=== PATIENT | female | born 1940 | race Caucasian/White ===

== ENCOUNTER 2022-10-18 15:55 | Emergency (ER) | payer MEDICARE, MEDICAID, SELFPAY ==
[2022-10-18] VITALS (9 sets, daily range): BP systolic 150–213; BP diastolic 73–82; PULSE 67–100; RESP 16–29; TEMP 36.1; O2SAT 97–100
--- NOTE | ~2022-10-18 | CT_ITS ---
EXAMINATION: CT abdomen pelvis w con DATE: 10/18/2022 17:53 INDICATION: Abdominal pain TECHNIQUE: Computed tomography (CT) of the abdomen and pelvis was performed with 100 mL Omnipaque-350 intravenous contrast. Automated exposure control and iterative reconstruction technique were employe d. The dose-length product was 743.36 mGy-cm. COMPARISON: 09/23/2018. FINDINGS: Lower thorax: Bibasilar scar/atelectasis. Calcified right lower lobe granuloma. Mild coronary artery calcification. Liver: Granulomatous calcifications. Biliary/Gallbladder: Gallbladder is normal. No bile duct dilation. Pancreas: Mild fatty infiltration. Spleen: Granulomatous calcifications. Adrenals:No mass. Kidneys: Subcentimeter right renal hypodensities, too small to characterize but most likely represent cysts. No suspicious mass or hydronephrosis. Mild bilateral cortical thinning and scarring. GI tract: Small hiatal hernia. Mild distal esophageal wall edema. No small or large bowel dilation. N ormal appendix. Diverticulosis without diverticulitis. Uniform bowel wall enhancement. Colonic submuc osal fat as can be seen with chronic IBD, obesity, chemotherapy treatment, and celiac disease. Hyperm obile cecum. Mesentery/Peritoneum: No ascites, mass, or free air. Retroperitoneum: No mass. Atherosclerotic abdominal aortic and/or arterial calcifications. Pelvis: Pelvic organs are within normal limits. Soft Tissues: Soft tissues and body wall unremarkable. Bones: No acute osseous finding. IMPRESSION: Mild esophagitis. Otherwise, no acute abdominopelvic process detected. Chronic and incidental finding s detailed above. Reviewed, dictated and finalized at location [facility]. [facility] [employer]PER[employer] [facility] IMPRESSION: Mild esophagitis. Otherwise, no acute abdominopelvic process detected. Chronic and incidental findings detailed above.
[2022-10-18] MEDS: SODIUM CHLORIDE 0.9% IV 1,000 ML 999 ML IV CONT (16:05)
--- NOTE | 2022-10-18 16:20 | ED.NAVMDI ---
HPI - Nausea/Vomiting/Diarrhea General Chief complaint: Nausea/Vomiting/Diarrhea Stated complaint: N/V History of Present Illness HPI Narrative: This is an 82-year-old female with past medical history of anxiety, presenting to the emergency department complaining of nausea vomiting and diffuse abdominal pain for the past 2 days. She states approximately 1 week ago she stopped taking her Xanax and reduced her Cymbalta dose to 30 mg. She states yesterday she had 1 episode of nonbloody vomiting and is felt nauseous today. She complains of multiple episodes of loose stools without blood. She also complains of some nasal congestion. Related Data Allergies Allergy/AdvReac Type Severity Reaction Status Date / Time codeine Allergy Mild codeine Verified 09/26/18 09:32 ([id number]) lactase Allergy Unknown Very sick Verified 10/04/18 13:45 Review of Systems Review of Systems: CONSTITUTIONAL: Denies fever, chills, or sweats. EYES: Denies visual changes, redness, or discharge. ENT: Congestion denies rhinorrhea, sore throat, or otalgia. CARDIOVASCULAR: Denies chest pain, palpitations, or edema. RESPIRATORY: Denies cough or dyspnea. GASTROINTESTINAL: Epigastric abdominal pain, nausea, vomiting, and diarrhea. GENITOURINARY: Denies dysuria or hematuria. SKIN: Denies rash or itching. MUSCULOSKELETAL: Denies back pain, joint pain, or myalgia. NEUROLOGIC: Denies headache, numbness, dizziness, or weakness. PSYCHIATRIC: Denies anxiety or depression. [facility] Past Medical History Medical History (Updated 10/18/22 @ 18:51 by Ton Garcia MD) Incisional hernia, without obstruction or gangrene Family History Family History Sibling Family history of liver disease, Onset Age: 61 Mother Family history of congestive heart failure, Onset Age: 91 Other Cerebrovascular accident Diabetes mellitus Family history of kidney disease Hypertension Social History Social History Smoking status: Current every day smoker Exam Narrative: GENERAL: Well-developed, well-nourished, and in no acute distress. HEAD: Normocephalic, atraumatic. EYES: PERRLA and EOMI. ENT: Nares clear, no rhinorrhea or epistaxis. Mucous membranes moist. Oropharynx without tonsillar hypertrophy exudate or other lesions. Edentulous CHEST: Clear to auscultation. No respiratory distress. No wheezes rales or rhonchi HEART: Regular rate and rhythm. No murmur heard. Normal peripheral pulses. ABDOMEN: Soft, diffusely tender to palpation without rebound or guarding, mildly distended, normal active bowel sounds. EXTREMITIES: Normal range of motion. No edema. SKIN: Warm, dry, no rash. NEURO: No focal deficits. Alert and oriented x3. PSYCH: Normal mood and affect. Course Course Emergency Course: 18:13 - CBC demonstrates mild normocytic anemia with hemoglobin at 11.6. Chemistries demonstrate mild hyponatremia at 3.2 and is otherwise unremarkable. UA not concerning for urinary tract infection. The patient tested negative for COVID and flu. On my review of her CT abdomen pelvis, there are no obvious infections, free fluid in the abdomen or changes concerning for bowel obstruction. Radiology interpretation pending. 18:17 - CT abdomen pelvis demonstrates mild esophagitis but is otherwise unremarkable. Will p.o. challenge and reassess. 18:44 - The patient is tolerating oral fluids. Will discharge. Discussed return emergency precautions including signs/symptoms of respiratory distress and intractable nausea and vomiting. The patient voiced understanding, she voices some anxiety, but is comfortable with the plan. All questions answered to her satisfaction. Vital Signs Vital signs: Vital Signs Temperature 97.0 F L 10/18/22 15:54 Pulse Rate 75 10/18/22 15:54 Respiratory Rate 16 10/18/22 15:54 Blood Pressure 213/82 H 10/18/22 15:5
[2022-10-18] MEDS: PROCHLORPERAZINE EDISYLATE 10 MG/2 ML VIAL IV PUSH (16:47)
[2022-10-18 17:15] LABS: Basophils Percent Auto 0.6 % (0.2-1.2); Eosinophils Percent Auto 0.8 % (0-4.4); Hemoglobin 11.6 g/dL (12.0-15.0); Immature Granulocyte Absolute 0.02 K/mm3 (0.00-0.031); Immature Granulocyte Percent A 0.4 % (0-0.5); Lymphocytes Percent Auto 22.7 % (18.3-44.2); Mean Corpuscular HGB Conc 33.1 g/dl (32-36); Mean Corpuscular Hemoglobin 32.6 pg (26-34); Mean Corpuscular Volume 98.3 fl (80-100); Mean Platelet Volume 9.7 fl (7.4-10.4); Monocytes Absolute Auto 0.4 K/mm3 (0.1-0.6); Monocytes Percent Auto 7.8 % (2.6-8.5); Neutrophils Absolute Auto 3.6 K/mm3 (1.3-6.7); Neutrophils Percent Auto 67.7 % (45.5-73.1); Platelet Count Result 153 k/mm3 (150-375); Red Blood Count 3.56 M/mm3 (4.2-5.4); Red Cell Distribution Width 12.7 % (11.5-14.5); White Blood Count 5.3 K/mm3 (4.5-10.0)
[2022-10-18] MEDS: BELLADONNA ALK/PHENOB ELIX 10 ML, MAG HYDROX/ALUMINUM HYD/SIMETH 30 ML, LIDOCAINE HCL 2... PO (17:32)
[2022-10-18 17:33] LABS: Alanine Aminotransferase 11 U/L (6-35); Albumin Level 3.9 g/dL (3.5-5.1); Alkaline Phosphatase 102 U/L (38-126); Anion Gap 3 mmol/L (8-16); Aspartate Amino Transferase 17 U/L (14-36); Bilirubin,Total 0.6 mg/dL (0.2-1.3); Blood Urea Nitrogen 10 mg/dL (7-17); Calcium 8.5 mg/dL (8.4-10.2); Carbon Dioxide 26 mmol/L (22-30); Chloride 109 mmol/L (98-107); Estimated CRCL calculation 51 ml/min; Estimated Glomerular Filt Rate > 60; Glucose 109 mg/dL (65-110); Lipase 65 U/L (23-300); Potassium 3.2 mmol/L (3.4-5.0); Sodium 138 mmol/L (137-145)
[2022-10-18 17:35] LABS: Appearance Urine Slightly Cloudy (Clear); Bilirubin Urine Negative (Negative); Blood Urine Trace-lysed (Negative); Color Urine Yellow (Yellow); Glucose Urine UA Negative (Negative); Ketones Urine Negative (Negative); Leukocyte Esterase Ur Negative LEU/UL (Negative); Nitrate Urine Negative (Negative); Protein Urine Negative (Negative); Specific Grav Ur 1.015 (1.001-1.035); Urobilinogen Urine 0.2 mg/dL (<2.0); pH Urine 5.5 (5.0-9.0)
[2022-10-18 17:36] LABS: Influenza A QL RT-PCR Negative (Negative); Influenza B QL RT-PCR Negative (Negative); SARS-CoV-2 RNA PCR Negative
[2022-10-18 17:38] LABS: Mucus Urine Rare /lpf; RBC Urine 0-2 /hpf (0-2); Squamous Epithelial Cell Urine Rare /hpf (Few); WBC Urine 0-3 /hpf
[2022-10-18 17:39] LABS: Add Urine Microscopic? YES
[2022-10-18] MEDS: ONDANSETRON HCL ODT 4 MG TABLET PO (19:15)
== END 2022-10-18 19:32 | disposition home or self-care (01) ==
PROVIDERS: Emergency Provider Preventive Medicine Aerospace Medicine; PCP Internal Medicine
DX: R11.2 Nausea with vomiting, unspecified (principal); F19.239 Other psychoactive substance dependence with withdrawal, unspecified; T42.4X6A Underdosing of benzodiazepines, initial encounter; T43.216A Underdosing of selective serotonin and norepinephrine reuptake inhibitors, initial encounter; Z91.128 Patient's intentional underdosing of medication regimen for other reason; Z20.822 Contact with and (suspected) exposure to COVID-19; F17.200 Nicotine dependence, unspecified, uncomplicated
CPT/HCPCS: 36415; 74177; 80053; 81001; 83690; 85025; 87636; 96361; 96374; 99284; A9270; J0780; J7030; Q9967

== ENCOUNTER 2025-04-02 12:23 | Outpatient (CLI) | payer MEDICARE, MEDICAID, SELFPAY ==
--- NOTE | ~2025-04-02 | US_ITS ---
EXAMINATION: US venous doppler [facility] DATE: 04/02/2025 13:19 INDICATION: pain in left leg . TECHNIQUE: Grayscale images without and with compression and Doppler images of the left lower extremi ty veins were obtained. COMPARISON: None FINDINGS: The left common femoral vein, profunda (deep) femoral vein, femoral vein, popliteal vein, peroneal v ein, posterior tibial veins, and greater saphenous vein are patent. IMPRESSION: Patent left lower extremity veins. No evidence of deep venous thrombosis. Reviewed, dictated and finalized at location K.
--- OUTSIDE RECORDS SUMMARY | 2025-04-02 12:27 | XMS_ITS | Encounter Summary ---
Author Organization [facility] Address [address] [place] [address] Care Team Providers Care Qual Research Manager Name Role Phone Not Found, Stl Primary Care Provider Unavailabl e Encounter Details Date Type Department Care Team (Latest Contact Info) Description 04/29/2001 Outpatient Historical HIS [facility] GISELL Corona, MD [address] [facility] [address] [place] [id number] Other screening mammogram (Primary Dx) Social History Tobacco Use Types Packs/Day Years Used Date Smoking Tobacco: Never Assessed Comments Unknown Sex and Gender Information Value Date Recorded Sex Assigned at Not on file 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
--- OUTSIDE RECORDS SUMMARY | 2025-04-02 12:27 | XMS_ITS | Encounter Summary ---
Author Organization [facility] Address [address] [place] [address] Care Team Providers Care Chief Supply Chain Officer Name Role Phone Not Found, Stl Primary Care Provider Unavailabl e Encounter Details Date Type Department Care Team (Latest Contact Info) Description 04/08/2001 Outpatient Historical [facility] GISELL Corona, MD [facility] [facility] [address] [place] [id number] Unspecified sinusitis (chronic) (Primary Dx) Social History Tobacco Use Types Packs/Day Years Used Date Smoking Tobacco: Never Assessed Comments Unknown Sex and Gender Information Value Date Recorded Sex Assigned at Not on file 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
--- OUTSIDE RECORDS SUMMARY | 2025-04-02 12:28 | XMS_ITS | Patient Health Record ---
Author Organization [facility] [place] Address [address] [place] [address] Care Team Providers Care Plastic Sheeting Cutter Name Role Phone Jose TINEO, Bertin Primary Care Provider Un available Saima Weaver Unavailable [phone] Francisco Oates Unavailable [phone] Allergies No Known Allergies Reason For Referral No Information Medications Medication SIG (Take, Route, Frequency, Duration) Notes Start Date End Date Status DULoxetine HCl 60 MG 1 capsule in the morning Oral Once a day; Duration: 30 days Active ProAir HFA 108 (90 Base) MCG/ACT Inhalation 12/29/2023 Active traZODone HCl 50 MG 0.5 tablet at bedtime Orally at bedtime; Duration: 30 days 01/12/2025 Active Gabapentin 300 MG Oral 12/29/2023 A ctive amLODIPine Besylate 5 MG Oral 12/29/2023 Active Potassium Chloride ER 10 MEQ Oral 12/29/2023 Active busPIRone HCl 10 MG 1 tablet Oral Twice a day; Duration: 30 days Active Mupirocin 2% External 12/29/2023 Active Atorvastatin Calcium 40 MG TAKE 1 TABLET BY MOUTH EVERY DAY Oral; Duration: 90 Days E785,Unavailable Active Montelukast Sodium 10 MG Oral 12/29/2023 Active oxyBUTYnin Chloride 5 MG Oral 12/29/2023 Active Ferrous Sulfate 325 (65 Fe) MG Oral 12/29/2023 Active Furosemide 40 MG Oral 12/29/2023 Ac tive valACYclovir HCl 500 MG Oral 12/29/2023 Active Omeprazole 20 MG Oral 12/29/2023 Ac tive MAGNESIUM 400 MG ( MAGNESIUM OXIDE) TABLET *Reorder from [employer] for eRx and Interaction Alerts* 12/29/2023 Active Social History Sex Assigned At : Social History Observation Description Sex Assigned At Female Problems Problem Type SNOMED Code ICD Code Onset Dates Problem Status W/U Status Risk Notes Problem Mild major depression, single episode (60918107) Major depressive disorder, single episode, mild (F32.0) Active confirmed Problem Generalized anxiety disorder (40315070) Generalized anxiety disorder (F41.1) Active confirmed Problem Primary insomnia (7681643) Primary insomnia (F51.01) Active confirmed Problem Screening for cardiovascular system disease (269641718) Encounter for screening for cardiovascular disorders (Z13.6) Active confirmed Problem Dietary management surveillance (149086835) Dietary counseling and surveillance (Z71.3) Active confirmed Problem Moderate recurrent major depression (22058388) MDD (major depressive disorder), recurrent episode, moderate (F33.1) Active confirmed Problem Mild recurrent major depression (88944023) MDD (major depressive disorder), recurrent episode, mild (F33.0) Active confirmed Problem Essential hypertension (47940876) Essential hypertension (I10) Active confirmed Vital Signs Heart Rate 72 /min 01/12/2025 Height-cm 152.40 cm 01/12/2025 Blood pressure diastolic 72 mm Hg 01/12/2025 Weight-kg 75.75 kg 01/12/2025 Height 60.00 in 01/12/2025 Blood pressure systolic 177 mm Hg 01/12/2025 Weight 167 lbs 01/12/2025 BMI 32.61 kg/m2 01/12/2025 Encounters Encounter Location Date Provider Diagnosis [facility] [address] [place] [address] 04/21/2024 Francisco Oates Major depressive disorder, single episode, mild F32.0 and Generalized anxiety disorder F41.1 [facility] [address] [place] [address] 01/12/2025 Saima Weaver Generalized anxiety disorder F41.1 ; MDD (major depressive disorder), recurrent episode, moderate F33.1 ; Encounter for screening for cardiovascular disorders Z13.6 ; Dietary counseling and surveillance Z71.3 ; Essential hypertension I10 ; Primary insomnia F51.01 and Encounter for screening for depression Z13.31 [facility] [address] [place] [address] 10/25/2024 Saima Weaver Major depressive disorder, single episode, mild F32.0 [facility] [address] [place] [address] 12/15/2024 Saima Weaver [facility] [address] [facility] [address] [place] [address] 12/29/2024 Saima Weaver Major depressive disorder, single episode, mild F32.0 Assessments Encounter Date Diagnosis (ICD Code) Assessment Notes Treatment Notes Treatment Clinical Notes Section Notes 04/21/2024 Major depressive disorder, single episode, mild (ICD-10 - F32.0) 04/21/2024 Generalized anxiety disorder (ICD-10 - F41.1) 01/12/2025 MDD (major depressive disorder), recurrent episode, moderate (ICD-10 - F33.1) 1. Depression Cymblata 60 mg daily 2. Anxiety Buspar 10 mg twice a day reviewed provider notes in [facility] and labs 3. Primary Insomnia discuss and education sleep hygeine reported tried Melatonin not helped discuss and educated no Benzo prescribed related risk discuss and educated on adding Trazodone 25 mg at bedtime 4. HTN SEE PCP on B/P rx educated on healthy b/p 120/80 monitor b/p at home refer to PCP, heart healthy diet and excise limit salt intake limit soda intake and caffiene increase water Discussed and educated pt regarding benzodiazepines are generally not intended for prolonged use and that use can cause tolerance, dependence, depression, and associated memory issues including dementias (this list is not exhaustive). Benzodiazepine use is generally not recommended concurrently with pain medications and/or other controlled substances educated on all medications, benefits, side effects and risk, and educated on depression, anxiety, and ADHD, mood d/o and educated on compliance of medications, metabolic and movement d/o education appointment is, continue therapy discussion with patient about course of treatment and patient instructions. education on serotonin syndrome SSRI/SNRI side effects discussed including but not limited to, gastric upset, nausea, vomiting, diarrhea and/or constipation, weight changes, sexual side effects including loss of libido, increased suicidal thoughts/behavior s in children and young adults, and serotonin syndrome. Medication Management and Follow-Up - Plan: - Schedule follow-up appointments every 1-3 months to monitor the patient's response to the medication regimen. - Reinforce the importance of avoiding recreational drug use due to potential neurotoxicity and interactions with prescribed medications. 10/25/2024 Major depressive disorder, single episode, mild (ICD-10 - F32.0) 12/29/2024 Major depressive disorder, single episode, mild (ICD-10 - F32.0) 01/12/2025 Generalized anxiety disorder (ICD-10 - F41.1) 1. Depression Cymblata 60 mg daily 2. Anxiety Buspar 10 mg twice a day reviewed provider notes in [facility] and labs 3. Primary Insomnia discuss and education sleep hygeine reported tried Melatonin not helped discuss and educated no Benzo prescribed related risk discuss and educated on adding Trazodone 25 mg at bedtime 4. HTN SEE PCP on B/P rx educated on healthy b/p 120/80 monitor b/p at home refer to PCP, heart healthy diet and excise limit salt intake limit soda intake and caffiene increase water Discussed and educated pt regarding benzodiazepines are generally not intended for prolonged use and that use can cause tolerance, dependence, depression, and associated memory issues including dementias (this list is not exhaustive). Benzodiazepine use is generally not recommended concurrently with pain medications and/or other controlled substances educated on all medications, benefits, side effects and risk, and educated on depression, anxiety, and ADHD, mood d/o and educated on compliance of medications, metabolic and movement d/o education appointment is, continue therapy discussion with patient about course of treatment and patient instructions. education on serotonin syndrome SSRI/SNRI side effects discussed including but not limited to, gastric upset, nausea, vomiting, diarrhea and/or constipation, weight changes, sexual side effects including loss of libido, increased suicidal thoughts/behavior s in children and young adults, and serotonin syndrome. Medication Management and Follow-Up - Plan: - Schedule follow-up appointments every 1-3 months to monitor the patient's response to the medication regimen. - Reinforce the importance of avoiding recreational drug use due to potential neurotoxicity and interactions with prescribed medications. 01/12/2025 Encounter for screening for cardiovascular disorders (ICD-10 - Z13.6) 1. Depression Cymblata 60 mg daily 2. Anxiety Buspar 10 mg twice a day reviewed provider notes in [facility] and labs 3. Primary Insomnia discuss and education sleep hygeine reported tried Melatonin not helped discuss and educated no Benzo prescribed related risk discuss and educated on adding Trazodone 25 mg at bedtime 4. HTN SEE PCP on B/P rx educated on healthy b/p 120/80 monitor b/p at home refer to PCP, heart healthy diet and excise limit salt intake limit soda intake and caffiene increase water Discussed and educated pt regarding benzodiazepines are generally not intended for prolonged use and that use can cause tolerance, dependence, depression, and associated memory issues including dementias (this list is not exhaustive). Benzodiazepine use is generally not recommended concurrently with pain medications and/or other controlled substances educated on all medications, benefits, side effects and risk, and educated on depression, anxiety, and ADHD, mood d/o and educated on compliance of medications, metabolic and movement d/o education appointment is, continue therapy discussion with patient about course of treatment and patient instructions. education on serotonin syndrome SSRI/SNRI side effects discussed including but not limited to, gastric upset, nausea, vomiting, diarrhea and/or constipation, weight changes, sexual side effects including loss of libido, increased suicidal thoughts/behavior s in children and young adults, and serotonin syndrome. Medication Management and Follow-Up - Plan: - Schedule follow-up appointments every 1-3 months to monitor the patient's response to the medication regimen. - Reinforce the importance of avoiding recreational drug use due to potential neurotoxicity and interactions with prescribed medications. 01/12/2025 Dietary counseling and surveillance (ICD-10 - Z71.3) 1. Depression Cymblata 60 mg daily 2. Anxiety Buspar 10 mg twice a day reviewed provider notes in [facility] and labs 3. Primary Insomnia discuss and education sleep hygeine reported tried Melatonin not helped discuss and educated no Benzo prescribed related risk discuss and educated on adding Trazodone 25 mg at bedtime 4. HTN SEE PCP on B/P rx educated on healthy b/p 120/80 monitor b/p at home refer to PCP, heart healthy diet and excise limit salt intake limit soda intake and caffiene increase water Discussed and educated pt regarding benzodiazepines are generally not intended for prolonged use and that use can cause tolerance, dependence, depression, and associated memory issues including dementias (this list is not exhaustive). Benzodiazepine use is generally not recommended concurrently with pain medications and/or other controlled substances educated on all medications, benefits, side effects and risk, and educated on depression, anxiety, and ADHD, mood d/o and educated on compliance of medications, metabolic and movement d/o education appointment is, continue therapy discussion with patient about course of treatment and patient instructions. education on serotonin syndrome SSRI/SNRI side effects discussed including but not limited to, gastric upset, nausea, vomiting, diarrhea and/or constipation, weight changes, sexual side effects including loss of libido, increased suicidal thoughts/behavior s in children and young adults, and serotonin syndrome. Medication Management and Follow-Up - Plan: - Schedule follow-up appointments every 1-3 months to monitor the patient's response to the medication regimen. - Reinforce the importance of avoiding recreational drug use due to potential neurotoxicity and interactions with prescribed medications. 01/12/2025 Essential hypertension (ICD-10 - I10) 1. Depression Cymblata 60 mg daily 2. Anxiety Buspar 10 mg twice a day reviewed provider notes in [facility] and labs 3. Primary Insomnia discuss and education sleep hygeine reported tried Melatonin not helped discuss and educated no Benzo prescribed related risk discuss and educated on adding Trazodone 25 mg at bedtime 4. HTN SEE PCP on B/P rx educated on healthy b/p 120/80 monitor b/p at home refer to PCP, heart healthy diet and excise limit salt intake limit soda intake and caffiene increase water Discussed and educated pt regarding benzodiazepines are generally not intended for prolonged use and that use can cause tolerance, dependence, depression, and associated memory issues including dementias (this list is not exhaustive). Benzodiazepine use is generally not recommended concurrently with pain medications and/or other controlled substances educated on all medications, benefits, side effects and risk, and educated on depression, anxiety, and ADHD, mood d/o and educated on compliance of medications, metabolic and movement d/o education appointment is, continue therapy discussion with patient about course of treatment and patient instructions. education on serotonin syndrome SSRI/SNRI side effects discussed including but not limited to, gastric upset, nausea, vomiting, diarrhea and/or constipation, weight changes, sexual side effects including loss of libido, increased suicidal thoughts/behavior s in children and young adults, and serotonin syndrome. Medication Management and Follow-Up - Plan: - Schedule follow-up appointments every 1-3 months to monitor the patient's response to the medication regimen. - Reinforce the importance of avoiding recreational drug use due to potential neurotoxicity and interactions with prescribed medications. 01/12/2025 Primary insomnia (ICD-10 - F51.01) 1. Depression Cymblata 60 mg daily 2. Anxiety Buspar 10 mg twice a day reviewed provider notes in [facility] and labs 3. Primary Insomnia discuss and education sleep hygeine reported tried Melatonin not helped discuss and educated no Benzo prescribed related risk discuss and educated on adding Trazodone 25 mg at bedtime 4. HTN SEE PCP on B/P rx educated on healthy b/p 120/80 monitor b/p at home refer to PCP, heart healthy diet and excise limit salt intake limit soda intake and caffiene increase water Discussed and educated pt regarding benzodiazepines are generally not intended for prolonged use and that use can cause tolerance, dependence, depression, and associated memory issues including dementias (this list is not exhaustive). Benzodiazepine use is generally not recommended concurrently with pain medications and/or other controlled substances educated on all medications, benefits, side effects and risk, and educated on depression, anxiety, and ADHD, mood d/o and educated on compliance of medications, metabolic and movement d/o education appointment is, continue therapy discussion with patient about course of treatment and patient instructions. education on serotonin syndrome SSRI/SNRI side effects discussed including but not limited to, gastric upset, nausea, vomiting, diarrhea and/or constipation, weight changes, sexual side effects including loss of libido, increased suicidal thoughts/behavior s in children and young adults, and serotonin syndrome. Medication Management and Follow-Up - Plan: - Schedule follow-up appointments every 1-3 months to monitor the patient's response to the medication regimen. - Reinforce the importance of avoiding recreational drug use due to potential neurotoxicity and interactions with prescribed medications. 01/12/2025 Encounter for screening for depression (ICD-10 - Z13.31) 1. Depression Cymblata 60 mg daily 2. Anxiety Buspar 10 mg twice a day reviewed provider notes in [facility] and labs 3. Primary Insomnia discuss and education sleep hygeine reported tried Melatonin not helped discuss and educated no Benzo prescribed related risk discuss and educated on adding Trazodone 25 mg at bedtime 4. HTN SEE PCP on B/P rx educated on healthy b/p 120/80 monitor b/p at home refer to PCP, heart healthy diet and excise limit salt intake limit soda intake and caffiene increase water Discussed and educated pt regarding benzodiazepines are generally not intended for prolonged use and that use can cause tolerance, dependence, depression, and associated memory issues including dementias (this list is not exhaustive). Benzodiazepine use is generally not recommended concurrently with pain medications and/or other controlled substances educated on all medications, benefits, side effects and risk, and educated on depression, anxiety, and ADHD, mood d/o and educated on compliance of medications, metabolic and movement d/o education appointment is, continue therapy discussion with patient about course of treatment and patient instructions. education on serotonin syndrome SSRI/SNRI side effects discussed including but not limited to, gastric upset, nausea, vomiting, diarrhea and/or constipation, weight changes, sexual side effects including loss of libido, increased suicidal thoughts/behavior s in children and young adults, and serotonin syndrome. Medication Management and Follow-Up - Plan: - Schedule follow-up appointments every 1-3 months to monitor the patient's response to the medication regimen. - Reinforce the importance of avoiding recreational drug use due to potential neurotoxicity and interactions with prescribed medications. 01/12/2025 Other referral to the local chapter or national office of the Alzheimer's [employer] (2-991-189-390 0; http://www.alz .org), the Alzheimer's Disease Education and Referral Center (ADEAR) (7-448-377-438 0; http://www.gabriele .nih.gov/Alzhe imers/), Learning About Depression Screening material was printed 1. Depression Cymblata 60 mg daily 2. Anxiety Buspar 10 mg twice a day reviewed provider notes in [facility] and labs 3. Primary Insomnia discuss and education sleep hygeine reported tried Melatonin not helped discuss and educated no Benzo prescribed related risk discuss and educated on adding Trazodone 25 mg at bedtime 4. HTN SEE PCP on B/P rx educated on healthy b/p 120/80 monitor b/p at home refer to PCP, heart healthy diet and excise limit salt intake limit soda intake and caffiene increase water Discussed and educated pt regarding benzodiazepines are generally not intended for prolonged use and that use can cause tolerance, dependence, depression, and associated memory issues including dementias (this list is not exhaustive). Benzodiazepine use is generally not recommended concurrently with pain medications and/or other controlled substances educated on all medications, benefits, side effects and risk, and educated on depression, anxiety, and ADHD, mood d/o and educated on compliance of medications, metabolic and movement d/o education appointment is, continue therapy discussion with patient about course of treatment and patient instructions. education on serotonin syndrome SSRI/SNRI side effects discussed including but not limited to, gastric upset, nausea, vomiting, diarrhea and/or constipation, weight changes, sexual side effects including loss of libido, increased suicidal thoughts/behavior s in children and young adults, and serotonin syndrome. Medication Management and Follow-Up - Plan: - Schedule follow-up appointments every 1-3 months to monitor the patient's response to the medication regimen. - Reinforce the importance of avoiding recreational drug use due to potential neurotoxicity and interactions with prescribed medications. Plan Of Treatment Next Appt Details Provider Name:Saima Weaver , 04/17/2025 10:45:00 AM, [address], [facility], [place], [address], Insurance Providers Payer Name Payer Address Payer Phone Subscriber Number Group Number Insured Name Patient Relationship to Insured Coverage Start Date Coverage End Date [employer] Medicare Replacement/ Advantage - Hmo [address] [address] [place] [address] [id number] TRA LIZ Self - patient is the insured [place] [address] [address] [place] [address] [id number] TRA LIZ Self - patient is the insured Medical (General) History Medical History History ICD Code Problems: Generalized anxiety disorder Mild major depression, single episode , Surgical History Surgery Date(Month/Year) Closed reduction of fracture of upper li mb ([id number]) Hernia repair (46863803) 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
--- OUTSIDE RECORDS SUMMARY | 2025-04-02 12:29 | XMS_ITS | Encounter Summary ---
Author Organization [facility] Address 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
--- OUTSIDE RECORDS SUMMARY | 2025-04-02 12:29 | XMS_ITS | Encounter Summary ---
Author Organization [facility] Address [address] [place] [address] Care Team Providers Care Painter And Decorator Apprentice Name Role Phone Not Found, Stl Primary Care Provider Unavailabl e Encounter Details Date Type Department Care Team (Latest Contact Info) Description 05/18/2008 Outpatient Historical [facility] G[facility]LL Corona, MD [facility] [address] [facility] [address] [place] [id number] Other Screening Mammogram Social History Tobacco Use Types Packs/Day Years Used Date Smoking Tobacco: Never Assessed Comments No Sex and Gender Information Value Date Recorded Sex Assigned at Not on file 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
--- OUTSIDE RECORDS SUMMARY | 2025-04-02 12:29 | XMS_ITS | Encounter Summary ---
Author Organization [facility] Address 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 [address] [email or web address] Patient: Leonora Briones MRN: Study ID: ADULT STRESS ECH Gender: F : 1940 Age: 67 years Race: 1 Room: Bed: Height: Study Date: July 02, 2008 Patient status: Outpatient Weight: Access. #: [id number] POC: Ordering: Bernardo Attending MD: Bernardo Admitting MD: Bernardo Study Conclusions: SUMMARY - Stress results : Duration of exercise was 2 min and 30 sec. Functional capacity was decreased (greater than 40%). Target heart rate was achieved. There was no chest pain during stress. The stress ECG was negative for ischemia. - Baseline : Estimated left ventricular ejection fraction was in the range of 55 % to 65 %. - Echo image interpretation : There was no diagnostic evidence for stress-induced ischemia. IMPRESSIONS - Normal study after maximal exercise without reproduction of symptoms. History and indications REST ECG - Normal baseline ECG. Stress results Felipe protocol Baseline HR bpm: 85 SBP mmH DBP mmH Symptoms: none ST change: none Rhythm/conduct: NSR, no ectopy Peak HR bpm: 150 SBP mmH DBP mmH Symptoms: severe dyspnea, severe fatigue ST change: none Rhythm/conduct: NSR, no ectopy Recovery 1 HR bpm: 78 SBP mmH DBP mmH Symptoms: none ST change: none Rhythm/conduct: occasional PVC's STRESS RESULTS - Duration of exercise was 2 min and 30 sec. - The patient exercised to protocol stage 1. - Functional capacity was decreased (greater than 40%). - Maximal heart rate during stress was 150 bpm ( 99 % of maximal predicted heart rate). - The heart rate response to stress was exaggerated. - There was normal resting blood pressure with an appropriate response to stress. - The rate-pressure product for the peak heart rate and blood pressure was [address]. - There was no chest pain during stress. - The stress test was terminated due to severe fatigue. - There were no stress arrhythmias or conduction abnormalities. - The stress ECG was negative for ischemia. Imaging data IMAGE PROPERTIES - The image quality was good. STRESS 2D ECHOCARDIOGRAPHIC RESULTS Baseline: - There was no diagnostic evidence for left ventricular regional wall motion abnormalities at baseline. - Left ventricular size was normal. - Overall left ventricular systolic function was normal. - Estimated left ventricular ejection fraction was in the range of 55 % to 65 %. Peak stress: - There was no diagnostic evidence for left ventricular regional wall motion abnormalities at peak stress. - There was an appropriate reduction in left ventricular size. - There was an appropriate augmentation in LV function. ECHO IMPRESSIONS - There was no diagnostic evidence for stress-induced ischemia. Prepared and Electronically Authenticated Dillon Warren MD Confirmed July 02, 2008 11:04:42 Procedure Note Provider, Historical - 07/02/2008 [facility] [address] [place] [address] [email or web address] Patient: Leonora Briones MRN: Study ID: ADULT STRESS ECH Gender: F : 1940 Age: 67 years Race: 1 Room: Bed: Height: Study Date: July 02, 2008 Patient status: Outpatient Weight: Access. #: [id number] POC: Ordering: Bernardo Attending MD: Bernardo Admitting MD: Bernardo Study Conclusions: SUMMARY - Stress results : Duration of exercise was 2 min and 30 sec.Functional capacity was decreased (greater than 40%). Target heart rate was achieved. There was no chest pain during stress. The stress ECG was negative for ischemia. - Baseline : Estimated left ventricular ejection fraction was in therange of 55 % to 65 %. - Echo image interpretation : There was no diagnostic evidence for stress-induced ischemia. IMPRESSIONS - Normal study after maximal exercise without reproduction of symptoms. History and indications REST ECG - Normal baseline ECG. Stress results Felipe protocol Baseline HR bpm: 85 SBP mmH DBP mmH Symptoms: none ST change: none Rhythm/conduct: NSR, no ectopy Peak HR bpm: 150 SBP mmH DBP mmH Symptoms: severe dyspnea, severe fatigue ST change: none Rhythm/conduct: NSR, no ectopy Recovery 1 HR bpm: 78 SBP mmH DBP mmH Symptoms: none ST change: none Rhythm/conduct: occasional PVC's STRESS RESULTS - Duration of exercise was 2 min and 30 sec. - The patient exercised to protocol stage 1. - Functional capacity was decreased (greater than 40%). - Maximal heart rate during stress was 150 bpm ( 99 % of maximalpredicted heart rate). - The heart rate response to stress was exaggerated. - There was normal resting blood pressure with an appropriate responseto stress. - The rate-pressure product for the peak heart rate and blood pressurewas 89718. - There was no chest pain during stress. - The stress test was terminated due to severe fatigue. - There were no stress arrhythmias or conduction abnormalities. - The stress ECG was negative for ischemia. Imaging data IMAGE PROPERTIES - The image quality was good. STRESS 2D ECHOCARDIOGRAPHIC RESULTS Baseline: - There was no diagnostic evidence for left ventricular regional wall motion abnormalities at baseline. - Left ventricular size was normal. - Overall left ventricular systolic function was normal. - Estimated left ventricular ejection fraction was in the range of 55 %to 65 %. Peak stress: - There was no diagnostic evidence for left ventricular regional wall motion abnormalities at peak stress. - There was an appropriate reduction in left ventricular size. - There was an appropriate augmentation in LV function. ECHO IMPRESSIONS - There was no diagnostic evidence for stress-induced ischemia. Prepared and Electronically Authenticated Dillon Warren MD Confirmed July 02, 2008 11:04:42 us Bryn Corona MD ORDERABLES Final Result INTERFACE SYSTEM Refer to clinic/hospital department documented in this encounter Visit Diagnoses Diagnosis Other chest pain documented in this encounter Care Teams Brand Analyst Relationship Specialty Start Date End Date Not Found, Stl NO ADDRESS ON FILE PCP - General 05/09/15 documented as of this encounter
--- OUTSIDE RECORDS SUMMARY | 2025-04-02 12:29 | XMS_ITS | Encounter Summary ---
Author Organization [facility] Address 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 Gender Identity Not on file Sexual Orientation Not on file documented as of this encounter Plan of Treatment Not on file documented as of this encounter Procedures Procedure Name Priority Date/Time Associated Diagnosis Comments ECHO COMPLETE Routine 08/01/2008 4:50 PM UNIT LEADER documented in this encounter Results * ECHOCARDIOGRAM COMPLETE (08/01/2008 4:50 PM UNIT LEADER) Narrative INTERFACE SYSTEM - 08/01/2008 4:50 PM UNIT LEADER [address] [address] [email or web address] [email or web address] Patient: Leonora Briones Study ID: ADULT ECHO FULL Gender: F : 1940 Age: 67 years Race: 1 Room: Bed: Height: 62 in ( 158 cm ) Study Date: August 01, 2008 Patient status: Outpatient Weight: 164.65 lb ( 74.84 kg ) Access. #: [id number] POC: Ordering: Adriano Attending MD: Adriano Admitting MD: Adriano Indications and History: INDICATIONS: Assess left ventricular function. HISTORY: Dyspnea. Procedure data: PROCEDURE INFORMATION: A transthoracic complete 2D study was performed. Additional evaluation included M-mode, complete spectral Doppler, and color Doppler. Study Conclusions: SUMMARY: - Overall left ventricular systolic function was normal. The calculated LVEF was 56 %. Left ventricular wall thickness was mildly increased. - Aortic valve thickness was mildly increased. There was mild to moderate aortic valvular regurgitation. - There was mild mitral valvular regurgitation. - Left atrial size was at the upper limits of normal. - Right ventricular size was normal. Right ventricular systolic function was normal. - Estimated peak pulmonary artery systolic pressure was 35 mmHg. Cardiac anatomy: LEFT VENTRICLE: Left ventricular size was normal. Overall left ventricular systolic function was normal. The calculated LVEF was 56 %. There were no left ventricular regional wall motion abnormalities. Left ventricular wall thickness was mildly increased. Doppler interpretation(s): Diastolic dysfunction stage 1, delayed relaxation pattern. AORTIC VALVE: The aortic valve was trileaflet. Aortic valve thickness was mildly increased. There was normal aortic valve leaflet excursion. Doppler interpretation(s): There was mild to moderate aortic valvular regurgitation. AORTA: The aortic root was normal in size. MITRAL VALVE: There was mild thickening of the mitral valve. There was normal mitral valve leaflet excursion. Doppler interpretation(s): There was mild mitral valvular regurgitation. LEFT ATRIUM: Left atrial size was at the upper limits of normal. RIGHT VENTRICLE: Right ventricular size was normal. Right ventricular systolic function was normal. PULMONIC VALVE: The pulmonic valve was not well visualized. Doppler interpretation(s): The transpulmonic velocity was within the normal range. There was mild pulmonic regurgitation. TRICUSPID VALVE: The tricuspid valve structure was normal. Tricuspid leaflet excursion was normal. Doppler interpretation(s): There was mild tricuspid valvular regurgitation. PULMONARY ARTERY: Doppler interpretation(s): Estimated peak pulmonary artery systolic pressure was 35 mmHg. RIGHT ATRIUM: Right atrial size was normal. PERICARDIUM: There was no pericardial effusion. The pericardium was normal in appearance. Measurement tables: M-mode measurements LEFT VENTRICLE NORMAL LVID ed 49 mm -- LVID es 38 mm -- IVS ed 11 mm -- LVPWT ed 11 mm -- AORTA NORMAL AoD (root) 34 mm -- LEFT ATRIUM NORMAL LAD 40 mm -- Doppler measurements LVOT, AV, AORTA NORMAL Peak AV velocity 171 cm/sec -- Peak AV gradient 12 mmHg -- MITRAL VALVE NORMAL Peak E velocity 81 cm/sec -- Peak A velocity 92 cm/sec -- MV peak E/A 0.88 -- MV deceleration time 256 msec -- Peak gradient 3 mmHg -- Mitral regurgitation by PISA technique MR PISA radius 0.31 cm -- Max MR velocity 544 cm/sec -- MR VTI 209 cm -- RIGHT VENTRICLE NORMAL Tricuspid regurgitant velocity 254 cm/sec -- Estimated RV systolic pressure 36 mmHg -- RVOT, PV, PA NORMAL PV peak velocity 100 cm/sec -- PV peak gradient 4 mmHg -- Prepared and Electronically Authenticated Joseph Queen MD Confirmed August 01, 2008 16:26:35 Procedure Note Provider, Historical - 08/01/[address] [address]Apovg: [email or web address] [email or web address] Echocardiogram Patient: Leonora Briones Study ID: ADULT ECHO FULL Gender: F : 1940 Age: 67 years Race: 1 Room: Bed: Height: 62 in ( 158 cm ) Study Date: August 01, 2008 Patient status: Outpatient Weight: 164.65 lb ( 74.84 kg ) Access. #: [id number] POC: Ordering: Adriano Attending MD: Adriano Admitting MD: Adriano Indications and History: INDICATIONS: Assess left ventricular function. HISTORY: Dyspnea. Procedure data: PROCEDURE INFORMATION: A transthoracic complete 2D study was performed. Additional evaluation included M-mode, complete spectral Doppler, and color Doppler. Study Conclusions: SUMMARY: - Overall left ventricular systolic function was normal. The calculated LVEF was 56 %. Left ventricular wall thickness was mildly increased. - Aortic valve thickness was mildly increased. There was mild tomoderate aortic valvular regurgitation. - There was mild mitral valvular regurgitation. - Left atrial size was at the upper limits of normal. - Right ventricular size was normal. Right ventricular systolicfunction was normal. - Estimated peak pulmonary artery systolic pressure was 35 mmHg. Cardiac anatomy: LEFT VENTRICLE: Left ventricular size was normal. Overall left ventricular systolic function was normal. The calculated LVEF was 56 %. There were no left ventricular regional wall motion abnormalities. Left ventricular wall thickness was mildly increased. Doppler interpretation(s): Diastolic dysfunction stage 1, delayed relaxation pattern. AORTIC VALVE: The aortic valve was trileaflet. Aortic valve thickness was mildly increased. There was normal aortic valve leaflet excursion. Doppler interpretation(s): There was mild to moderate aortic valvular regurgitation. AORTA: The aortic root was normal in size. MITRAL VALVE: There was mild thickening of the mitral valve. There was normal mitral valve leaflet excursion. Doppler interpretation(s): There was mildmitral valvular regurgitation. LEFT ATRIUM: Left atrial size was at the upper limits of normal. RIGHT VENTRICLE: Right ventricular size was normal. Right ventricular systolic functionwas normal. PULMONIC VALVE: The pulmonic valve was not well visualized. Doppler interpretation(s):The transpulmonic velocity was within the normal range. There was mildpulmonic regurgitation. TRICUSPID VALVE: The tricuspid valve structure was normal. Tricuspid leaflet excursionwas normal. Doppler interpretation(s): There was mild tricuspid valvular regurgitation. PULMONARY ARTERY: Doppler interpretation(s): Estimated peak pulmonary artery systolic pressure was 35 mmHg. RIGHT ATRIUM: Right atrial size was normal. PERICARDIUM: There was no pericardial effusion. The pericardium was normal in appearance. Measurement tables: M-mode measurements LEFT VENTRICLE NORMAL LVID ed 49 mm -- LVID es 38 mm -- IVS ed 11 mm -- LVPWT ed 11 mm -- AORTA NORMAL AoD (root) 34 mm -- LEFT ATRIUM NORMAL LAD 40 mm -- Doppler measurements LVOT, AV, AORTA NORMAL Peak AV velocity 171 cm/sec -- Peak AV gradient 12 mmHg -- MITRAL VALVE NORMAL Peak E velocity 81 cm/sec -- Peak A velocity 92 cm/sec -- MV peak E/A 0.88 -- MV deceleration time 256 msec -- Peak gradient 3 mmHg -- Mitral regurgitation by PISA technique MR PISA radius 0.31 cm -- Max MR velocity 544 cm/sec -- MR VTI 209 cm -- RIGHT VENTRICLE NORMAL Tricuspid regurgitant velocity 254 cm/sec -- Estimated RV systolic pressure 36 mmHg -- RVOT, PV, PA NORMAL PV peak velocity 100 cm/sec -- PV peak gradient 4 mmHg -- Prepared and Electronically Authenticated Joseph Queen MD Confirmed August 01, 2008 16:26:35 us Jason Mendoza MD US ORDERABLES Final Resu lt INTERFACE SYSTEM Refer to clinic/hospital department documented in this encounter Visit Diagnoses Diagnosis Other dyspnea and respiratory abnormality documented in this encounter Care Teams Data Acquisition Technician Relationship Specialty Start Date End Date Not Found, Stl NO ADDRESS ON FILE PCP - General 05/09/15 documented as of this encounter
--- OUTSIDE RECORDS SUMMARY | 2025-04-02 12:29 | XMS_ITS | Encounter Summary ---
Author Organization [facility] Address 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
--- OUTSIDE RECORDS SUMMARY | 2025-04-02 12:29 | XMS_ITS | Encounter Summary ---
Author Organization [facility] Address 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
--- OUTSIDE RECORDS SUMMARY | 2025-04-02 12:29 | XMS_ITS | Clinical Summary ---
Author Organization [facility] Address [address] [place] [address] Phone Care Team Providers Care Reduction Furnace Operator Name Role Phone Not Found, Stl Primary Care Provider Unavailabl e Allergies Active Allergy Reactions Criticality Noted Date Comments Codeine Nausea and Vomiting,Unknown Low Lactated Ringers Nausea and Vomiting High 11/24/2010 Medications ALPRAZolam (XANAX) 1 mg Oral tablet Take 1 mg by mouth 4 times daily as needed. Active CALCIUM CITRATE/VITAMIN D3 (CALCIUM CITRATE + D ORAL)Indications :Osteoporosis Take 600 mg by mouth 3 times daily with meals. OTC 12/10/19 11 Active cyanocobalamin (VITAMIN B-12) 1,000 mcg/mL Injection SolnIndications: Other B-complex deficiencies Inject 1 mL by intramuscular injection every 30 days. 10 mL 1 06/11/20 11 Active valACYclovir (VALTREX) 500 mg Oral tabletIndication s:Herpes simplex Take 1 Tab by mouth 2 times daily. 180 Tab 3 06/27/20 12 Active albuterol (PROVENTIL HFA) 90 mcg/Actuation Inhalation HFAA inhaler Take 2 Puffs by inhalation every 4 hours as needed for Shortness of Breath or Wheezing. 8.5 Gram 6 02/07/20 13 Active HYDROcodone-acet aminophen (LORTAB) 5-500 mg tablet Take 1 Tab by mouth every 6 hours as needed (take as needed every 6 hours PRN). 120 Tab 0 07/07/20 13 Active montelukast (SINGULAIR) 10 mg tabletIndication s:Asthma Take 1 Tab by mouth daily. 90 Tab 3 07/25/20 13 Active omeprazole (PRILOSEC) 20 mg Capsule, Delayed Release(E.C.) Take 1 Cap by mouth daily. 90 Cap 3 11/02/19 14 Active oxybutynin chloride (DITROPAN XL) 5 mg Extended Release 24 hour tablet Take 5 mg by mouth daily. Active DULoxetine (CYMBALTA) 60 mg Capsule, Delayed Release(E.C.) Take 60 mg by mouth daily. Active Active Problems Problem Noted Date Diagnosed Date Breast mass 05/24/2015 Atherosclerosis of aorta 04/02/2011 Overview (04/02/2011): Seen on cxr 2009 Aortic regurgitation 04/02/2011 PVC (premature ventricular contraction) 12/17/19 11 S/P partial gastrectomy 12/05/2010 Sinus bradycardia 11/24/2010 Osteoporosis 05/23/2010 Generalized anxiety disorder 05/23/2010 Herpes simplex 05/23/2010 Pernicious anemia 05/23/2010 Asthma 05/03/2009 Overactive bladder 05/03/2009 DJD (degenerative joint disease) of knee 009 Overview (05/03/2009): Right knee arthroscopy Other B-complex deficiencies Esophageal reflux Resolved Problems Problem Noted Date Diagnosed Date Resolved Date Multiple lung nodules 05/03/20092009 Immunizations Immunization Administration Dates Next Due (ADACEL/BOOSTRIX)(10 YR UP) TDAP VACCINE, 0.5ML, IM 08/03/2008 (PNEUMOVAX 23)(50 YRS UP) PN EUMOCOCCAL POLYSACCHARIDE (PPV23) 0.5 ML, IM 05/26/2010 Influenza Vaccine High Dose 65+ Yrs IM 2 Pneumococcal conjugate, unspecified formulation 08/06/2005 Zoster Vaccine Live SQ 12/17/2011 Family History Medical History Relation Name Comments Cancer Brother Colon Cancer Brother Breast Cancer Maternal Cousin 1 1 age 30's Breast Cancer Maternal Cousin 2 2 age 30's Diabetes Mother Heart Disease Mother High Cholesterol Mother Osteoporosis Mother questionable, s he fractured her clavicle in her 70's after a fall Breast Cancer Paternal Cousin age 50's Breast Cancer Sister age 50's Ovarian Cancer Sister age 20's Relation Name Status Comments Brother Alive Maternal Cousin 1 1 Maternal Cousin 2 2 Mother Paternal Cousin Sister Social History Tobacco Use Types Packs/Day Years Used Date Smoking Tobacco: Former Cigarettes 1 25 0 09/06/1958 - 09/06/1983 Smokeless Tobacco: Never Alcohol Use Standard Drinks/Week Comments No 0 (1 standard drink = 0.6 oz pur e alcohol) Comments No Sex and Gender Information Value Date Recorded Sex Assigned at Not on file Legal Sex Female 2:58 AM POOL FINISHER Gender Identity Not on file Sexual Orientation Not on file Occupation Industry Job Start Date Job End Date Not on file Not on file Not on file Not on file Last Filed Vital Signs Vital Sign Reading Time Taken Comments Blood Pressure 154/60 05/30/2015 8:14 AM CDT Pulse 55 05/30/2015 8:14 AM CDT Temperature 36.6 C (97.8 F) 03/17/2013 1:26 PM CDT Respiratory Rate 22 05/30/2015 8:14 AM CDT Oxygen Saturation 95% 05/30/2015 8:14 AM CDT Inhaled Oxygen Concentration - - Weight 71.7 kg (158 lb) 05/30/2015 6:39 AM CDT Height 156.2 cm (5' 1.5) 05/30/2015 6:39 AM CDT Body Mass Index 29.37 05/30/2015 6:39 AM CDT Plan of Treatment Health Maintenance Due Date Last Done Comments ZOSTER VACCINE (2 of 3) 02/11/2012 12/17/2011 COLORECTAL SCREENING 11/28/2013 11/28/2010, 11/24/2010, 06/25/2010, Additional history exists RSV VACCINE (60+ or ) (1 - 1-dose 75+ series) 2014 OSTEOPOROSIS SCREENING 07/22/2015 07/22/2010 DTAP/TDAP/TD VACCINES (2 - T d or Tdap) 08/03/2018 08/03/2008 INFLUENZA VACCINE (#1) 2025 , 06/26/2020, 07/26/2019, Additional history exists PNEUMOCOCCAL VACCINE 50+ YEARS Completed 0 12/06/2014, 05/26/2010, 08/06/2005 Procedures Procedure Name Priority Date/Time Associated Diagnosis Comments XR DEXA BONE DENSITY AXIAL 1 OR MORE SITES Routine 07/22/2010 11:31 AM POOL FINISHER Osteoporosis ENDOSCOPY, COLON, SCREENING Routine 06/25/2010 from Last 3 Months or Most Recently Relevant to Health Maintenance Results * XR DEXA BONE DENSITY AXIAL 1 OR MORE SITES (07/22/2010 11:31 AM POOL FINISHER) Anatomical Region Laterality Modality Digital Radiogra phy 07/22/2010 11:2 1 AM POOL FINISHER Impressions 07/22/2010 11:38 AM POOL FINISHER IMPRESSION: Lumbar spine: This patient's bone mineral density of the spine is osteoporotic when compared to the normal range of young adults and present fracture risk is considered to be moderate. Hips: This patient's bone mineral density of the hip is osteoporotic when compared to the normal range of young adults and present fracture risk is considered to be moderate. Comments: None. Detailed report to follow. Dictated by Dr. Beau Quigley MD [facility] Narrative 07/22/2010 11:38 AM POOL FINISHER Examination: Bone Density Study (DEXA) Clinical History: 69 year-old postmenopausal female with partial gastrectomy who is on Actonel for the treatment of osteoporosis. Evaluate current bone density. Findings: Lumbar Spine ( L 1-4 ) spine bone mineral density is 0.87 g/sq cm and corresponds to a T-score of -2.6. Femoral neck densities: Left femoral neck bone mineral density is 0.67 g/sq cm and corresponds to a T-score of -2.6. Right femoral neck bone mineral density is 0.68 g/sq cm and corresponds to a T-score of -2.6. Average femoral neck bone mineral density is 0.68 g/sq cm and corresponds to a T-score of -2.6. Procedure Note Beau Quigley MD - 07/22/2010 Examination: Bone Density Study (DEXA) Clinical History: 69 year-old postmenopausal female with partial gastrectomy who is on Actonel for the treatment of osteoporosis. Evaluate current bone density. Findings: Lumbar Spine ( L 1-4 ) spine bone mineral density is 0.87 g/sq cm and corresponds to a T-score of -2.6. Femoral neck densities: Left femoral neck bone mineral density is 0.67 g/sq cm and corresponds to a T-score of -2.6. Right femoral neck bone mineral density is 0.68 g/sq cm and corresponds to a T-score of -2.6. Average femoral neck bone mineral density is 0.68 g/sq cm and corresponds to a T-score of -2.6. IMPRESSION IMPRESSION: Lumbar spine: This patient's bone mineral density of the spine is osteoporotic when compared to the normal range of young adults and present fracture risk is considered to be moderate. Hips: This patient's bone mineral density of the hip is osteoporotic when compared to the normal range of young adults and present fracture risk is considered to be moderate. Comments: None. Detailed report to follow. Dictated by Dr. Beau Quigley MD [facility] us Saima Starks MD DIAGNOSTIC IMAGING OR DERABLES Final Result * ENDOSCOPY, COLON, SCREENING (06/25/2010) us Jason Ponce MD GI PROCEDURE ORDERABLES Final Result [facility] from Last 3 Months or Most Recently Relevant to Health Maintenance Insurance MEDICARE PART A AND B MEDICAID [place] Advance Directives For more information, please contact: [phone] * Full Code (Latest Code Status on File) Date Activated Date Inactivated Comments 05/30/2015 6:37 AM 05/30/2015 10:18 AM * Full Code Date Activated Date Inactivated Comments 11/24/2010 3:00 PM 11/25/2010 7:31 PM * Full Code Date Activated Date Inactivated Comments 11/24/2010 9:55 AM 11/24/2010 2:34 PM Care Teams Reduction Furnace Operator Relationship Specialty Start Date End Date Not Found, Stl NO ADDRESS ON FILE PCP - General 05/09/15
--- OUTSIDE RECORDS SUMMARY | 2025-04-02 12:29 | XMS_ITS | Patient Health Record ---
Author Organization [facility] Address [address] [facility] [address] [place], [place] [id number] Care Team Providers Care Needle Valve Operator Name Role Phone RUSTAM MARTINEZ DO Primary Care Provider Tian Orlando Unavailable [phone] ALLERGIES Allergen (clinical drug ingredient) Drug/Non Drug Allergy documented on EMR Reaction Allergy Type Onset Date Status calcium chloride / lactate / potassium chloride / sodium chloride lactated ringers (uncoded) Unknown Allergy Active codeine codeine (uncoded) Unknown Allergy Ac tive REASON FOR REFERRAL No Information MEDICATIONS Medication SIG (Take, Route, Frequency, Duration) Notes Start Date End Date Status omeprazole 20 mg 1 tablet orally once a day Active Flector Patch Active montelukast 10 mg 1 tablet orally once a day Active B-12 Resin Active mineral oil Active oxyBUTYnin 5 mg 1 tablet orally once a day Active Xanax 1 mg 1 tablet orally qid prn Active acetaminophen-hydrocodone 325 mg-5 mg 1 tab(s) orally 3 times a day prn per Dr. Gunter Active Vitamin D3 1000 intl units 1 cap(s) oral ly once a day Active aspirin 81 mg 1 tablet orally once a day Active potassium citrate 10 mEq 1 tablet orally once a day Active Valtrex 500 mg 1 tablet orally once a day Active Caltrate Calcium & Vit. D3 600 Active MiraLax (obsolete) A ctive Zoloft 100 mg 1 1/2 tablets orally once a day Active ProAir HFA Active SOCIAL HISTORY Tobacco Use: Social History Observation Description Date Details (start date - stop date) Former Smoker NA - NA Sex Assigned At : Social History Observation Description Sex Assigned At Unknown Tobacco Use: Question Answer Notes Smoking Status former smoker Quit 1984 PROBLEMS Problem Type ICD Code Onset Dates Problem Status W/U Status Risk SNOMED Code Notes Problem Spinal stenosis of lumbar region (724.02) Active confirmed Spinal stenosis of lumbar region (21425467) Problem Polyarthralgia (719.49) Active confirmed Polyarthralgia (49360549) Problem Myalgia (729.1) Active confirmed Myalgi a (61749986) Problem Low Back Pain (724.2) Active confirmed Low back pain (417367861) Problem OSTEOARTHRITIS (715.09) Active confirmed Osteoarthritis (409360596) Problem Fibromyalgia (729.1) Active confirmed Fibromyalgia (819559790) PLAN OF TREATMENT Pending Test Test Name Order Date Aldolase 09/18/2014 C-Reactive Protein, Quant 09/18/2014 CCP IgG Antibodies 09/18/2014 DUYEN w/reflex IFA USE FOR [facility] and [facility] 09/18/2014 SPEPW/Interpretation w/reflex 09/18/2014 Insurance Providers Payer Name Payer Address Payer Phone Subscriber Number Group Number Insured Name Patient Relationship to Insured Coverage Start Date Coverage End Date MEDICARE ASSIGNMENT [address] [place] [address] [id number] Leonora Briones Self - patient is the insured 3 [place] [employer] [address] [address] [place] [address] [id number] Leonora Briones Self - patient is the insured 5 MEDICAL (GENERAL) HISTORY Medical History History ICD Code bruises easily tension headaches cataracts blurred vision vision flashes ear ache ear discharge loss of hearing hayfever sinus problems difficulty swallowing hoarseness dizziness fibercystic breast lumps swollen neck glands anemia ankle swelling feet swelling asthma-difficulty breathing heart murmur rheumatic fever bloating bowel changes constipation IBS diarrhea gas hemorrhoids indigestion nausea stomach pain ulcer weight gain frequent urination lack of bladder control kidney infection hot flashes painful intercourse vaginal discharge vaginal infections postmenopausal neuropathy anxiety depression measles herpes chicken pox fractured clavicle herniated disc spinal stenosis Osteoarthritis knees Surgical History Surgery Date(Month/Year) 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
--- OUTSIDE RECORDS SUMMARY | 2025-04-02 12:29 | XMS_ITS | Clinical Summary ---
Author Organization [facility] Address [address] [place] [address] Care Team Providers Care Cashier Tube Room Name Role Phone Jason Bryant MD Primary Care Provider [phone] Allergies Active Allergy Reactions Criticality Noted Date Comments Codeine Nausea only Low 09/18/2014 Medications valACYclovir (VALTREX) 500 mg tablet TK 1 T PO BID 0 9 Active oxybutynin XL (DITROPAN-XL) 5 mg 24 hr tablet Take 5 mg by mouth daily Active fluticasone propionate (FLONASE) 50 mcg/actuation nasal spray USE 1 SQUIRT IN THE NOSTRILS BID 0 9 Active cholecalciferol (VITAMIN D-3) 1000 unit tablet Vitamin D3 25 mcg (1,000 unit) tablet TK 1 T PO QD Active budesonide-form oterol (SYMBICORT) 160-4.5 mcg/actuation inhaler Symbicort 160 mcg-4.5 mcg/actuation HFA aerosol inhaler Active aspirin 81 mg chewable tablet daily Acti ve ALPRAZolam (XANAX) 1 mg tablet TAKE 1 TABLET BY MOUTH 4 TIMES DAILY NEEDED 5 9 Active acetaminophen 500 mg capsuleIndicati ons:Fever Take 2 capsules (1,000 mg total) by mouth every 6 (six) hours 30 tablet 1 Active cyclobenzaprine (FLEXERIL) 5 mg tabletIndicatio ns:Muscle Spasm Take 1 tablet (5 mg total) by mouth 3 (three) times a day 30 tablet 1 Active gabapentin (NEURONTIN) 100 mg capsule Take 1 capsule (100 mg total) by mouth 3 (three) times a day 90 capsule 11 1 Active montelukast (SINGULAIR) 10 mg tablet Take 1 tablet (10 mg total) by mouth nightly 0 1 Active potassium chloride ER 10 mEq CR tablet Take 2 tablet/capsule (20 mEq total) by mouth 2 (two) times a day 1 Active amLODIPine (NORVASC) 5 mg tablet Take 1 tablet (5 mg total) by mouth daily 30 tablet 11 1 Active buPROPion SR (WELLBUTRIN SR) 100 mg 12 hr tablet bupropion HCl SR 100 mg tablet,12 hr sustained-releas e Active clindamycin (CLEOCIN) 300 mg capsule clindamycin HCl 300 mg capsule TK 1 C PO TID FOR 7 DAYS Active cyanocobalamin (Vitamin B-12) 1,000 mcg/mL injection 1 mL Active neomycin-polymy amanda-HC (CORTISPORIN) 3.5-10,000-1 mg/mL-unit/mL-% otic suspension neomycin-polymyx in-hydrocort 3.5 mg-10,000 unit/mL-1 % ear drops,susp as directed Active nystatin ointment nystatin 100,000 unit/gram topical ointment Active pantoprazole DR (PROTONIX) 40 mg EC tablet daily 7 Active Active Problems Problem Noted Date Diagnosed Date Postural dizziness 01/08/2021 Closed hangman's fracture 01/08/2021 Acute pain due to trauma 01/08/2021 Hypertensive disorder 09/20/2019 Hypertriglyceridemia 09/20/2019 Hypokalemia 09/20/2019 Fibromyalgia 09/20/2019 Depressive disorder 10/01/2016 Gastroesophageal reflux disease 10/01/2016 Insomnia 10/01/2016 Irritable bowel syndrome with diarrhea 7 Aortic regurgitation 04/02/2011 Atherosclerosis of aorta 04/02/2011 Overview (09/20/2019): Seen on cxr 2009 Generalized anxiety disorder 05/23/2010 Asthma 05/03/2009 DJD (degenerative joint disease) of knee 009 Overview (09/20/2019): Right knee arthroscopy Resolved Problems Problem Noted Date Diagnosed Date Resolved Date Osteoarthritis 01/08/2021 01/08/2021 Acquired trigger finger 09/20/2019 05/0 01/2021 Lateral epicondylitis 09/20/20192020 Spinal stenosis of lumbar region 09/20/2019 01/08/2021 Vitamin D deficiency 09/20/2019 021 Closed fracture of left distal radius 08/18/2019 01/08/2021 Overview (08/18/2019): Added automatically from request for surgery [id number] Anxiety 10/01/2016 01/08/2021 Osteoporosis 10/01/2016 01/08/2021 Vitamin B12 deficiency (non anemic) 10/01/2016 01/08/2021 Hypertensive disorder 10/01/20162020 Breast mass 05/24/2015 01/08/2021 DJD (degenerative joint disease) of knee 05/03/2009 01/08/2021 Overview (01/08/2021): Right knee arthroscopy Immunizations Immunization Administration Dates Next Due INFLUENZA [id number] 06/06/2013 Influenza, Quadrivalent, Spl it, Intramuscular 06/26/2015 Influenza, Trivalent, High D ose, Split, Preservative Free, Intramuscular 07/26/2019,07/07/2018,06/29/2016 Influenza, Trivalent, Preser vative Free, Intramuscular 06/26/2014 Influenza, Unspecified 06/06/2017 Pfizer SARS-CoV-2 Monovalent Vaccination (12+ Yrs) PURPLE 10/21/2020,09/30/2020 Pneumococcal Conjugate PCV 13 12/06/2014 Pneumococcal Polysaccharide PPV23 05/26/2010 Tdap 08/03/2008 ZOSTER LIVE 12/17/2011 Surgical History Surgery Date Site/Laterality Comments TYMPANOPLASTY Bilateral CATARACT EXTRACTION EXTRACAP SULAR W/ INTRAOCULAR LENS IMPLANTATION Bilateral HERNIA REPAIR umbilical x 2. 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 Family History Medical History Relation Name Comments Alcohol abuse Brother Cancer Brother Heart disease Brother Hypertension Brother Alcohol abuse Father Arthritis Father Clotting disorder Father Arthritis Mother Diabetes Mother Heart disease Mother Hypertension Mother Cancer Sister Relation Name Status Comments Brother Father Mother Sister Social History Tobacco Use Types Packs/Day Years Used Date Smoking Tobacco: Former Cigarettes 1.3 25 1 1983 Smokeless Tobacco: Never Tobacco Cessation:Counseling Given: No Alcohol Use Standard Drinks/Week Comments Never 0 (1 standard drink = 0.6 oz pur e alcohol) AUDIT-C Answer Date Recorded Q1: How often do you have a drink containing alc ohol? Never 04/17/2021 Average Number of Drinks Not on file 021 Frequency of Binge Drinking Not on file 04/06 Personal Safety Answer Date Recorded Getting School Help Needed Not on file 11/19 Comments No Sex and Gender Information Value Date Recorded Sex Assigned at Not on file Legal Sex Female 10:59 PM SPECIALTY SALES CONSULTANT Gender Identity Not on file Sexual Orientation Not on file Obstetrics History Last Filed Vital Signs Vital Sign Reading Time Taken Comments Blood Pressure 136/60 02/13/2021 9:23 AM CDT Pulse 50 02/13/2021 9:23 AM CDT Temperature 36.4 C (97.5 F) 01/11/2021 12:38 PM CDT Respiratory Rate 18 01/11/2021 12:38 PM CDT Oxygen Saturation 96% 01/11/2021 12:38 PM CDT Inhaled Oxygen Concentration - - Weight 75.8 kg (167 lb) 02/13/2021 9:23 AM CDT Height 152.4 cm (5') 02/13/2021 9:23 AM CDT Body Mass Index 32.61 02/13/2021 9:23 AM CDT Plan of Treatment Not on file Medical Devices Implanted Type Area [employer] Social Science Teacher Device Identifier Shelf Expiration Date Model / Serial / Lot Screw 13mm 2.5mm Bone Cortical Aptus 5/Pk - [id number] Implanted:Qty: 1 on 09/05/2019 by Sole Marshall MD at [facility] Left: Radius [employer] A-5700.13 / / [employer] A-5750.16/1 2.5mm 16mm Trilock Hexadrive Wrist Radius Screw Bone - [id number] Implanted:Qty: 1 on 09/05/2019 by Sole Marshall MD at [facility] Left: Radius [employer] A-5750.16/1 / / [employer] A-5750.18/1 Aptus Trilock 2.5mm 18mm Hexadrive 7 Adaptive Wrist Radius - [id number] Implanted:Qty: 1 on 09/05/2019 by Sole Marshall MD at [facility] Left: Radius [employer] A-5750.18/1 / / [employer] A-5750.20 2.5mm 20mm Lock Cortical Screw Bone - [id number] Implanted:Qty: 1 on 09/05/2019 by Sole Marshall MD at [facility] Left: Radius [employer] A-5750.20 / / [employer] A-4750.17 Aptus Trilock [id number] 12 Hole Locking Left Distal Volar - [id number] Implanted:Qty: 1 on 09/05/2019 by Sole Marshall MD at [facility] Left: Radius [employer] A-4750.17 / / [employer] A-5750.18/1 Aptus Trilock 2.5mm 18mm Hexadrive 7 Adaptive Wrist Radius - [id number] Implanted:Qty: 1 on 09/05/2019 by Sole Marshall MD at [facility] Left: Radius [employer] A-5750.18/1 / / [employer] A-5750.16/1 2.5mm 16mm Trilock Hexadrive Wrist Radius Screw Bone - [id number] Implanted:Qty: 1 on 09/05/2019 by Sole Marshall MD at [facility] [place] Left: Radius [employer] A-5750.16/1 / / Screw 11mm 2.5mm Bone Cortical Aptus Titanium Hd7 5/Pk - [id number] Implanted:Qty: 1 on 09/05/2019 by Sole Marshall MD at [facility] [place] Left: Radius [employer] A-5700.11 / / [employer] A-5700.12 Aptus 2.5mm 12mm Cortical Screw Bone - [id number] Implanted:Qty: 1 on 09/05/2019 by Sole Marshall MD at [facility] [place] Left: Radius [employer] A-5700.12 / / [employer] A-5700.14 Aptus 2.5mm 14mm Cortical Screw Bone - [id number] Implanted:Qty: 1 on 09/05/2019 by Sole Marshall MD at [facility] Left: Radius [employer] A-5700.14 / / [employer] A-5750.18/1 Aptus Trilock 2.5mm 18mm Hexadrive 7 Adaptive Wrist Radius - [id number] Implanted:Qty: 1 on 09/05/2019 by Sole Marshall MD at [facility] Left: Radius [employer] A-5750.18/1 / / Explanted Type Area [employer] Social Science Teacher Device Identifier Shelf Expiration Date Model / Serial / Lot [employer] [id number] Ceasar .045in 9in [place] Both Ends Orthopedic Wire - [id number] Explanted:Qty: 1 on 09/05/2019 at [facility] [place] Left: Radius [employer] [id number] / / Insurance MEDICARE [place] Advance Directives For more information, please contact: [phone] * LIMITED - No CPR (Latest Code Status on File) Date Activated Date Inactivated Comments 01/07/2021 11:31 AM 01/11/2021 7:05 PM * Full Code Date Activated Date Inactivated Comments 01/07/2021 8:54 AM 01/07/2021 11:31 AM Care Teams Cashier Tube Room Relationship Specialty Start Date End Date Jason Bryant MD PCP - General Internal Medicine 08/10/19
--- OUTSIDE RECORDS SUMMARY | 2025-04-02 12:29 | XMS_ITS | Referral Summary ---
Author Organization [facility] Address [id number] [place] [id number] Care Team Providers Care Marketing Traffic Manager Name Role Phone Jason Bryant MD Primary Care Provider [phone] Allergies Active Allergy Reactions Criticality Noted Date [...] (08/18/2019): Added automatically from request for surgery [id number] Anxiety 10/01/2016 01/08/2021 Osteoporosis 10/01/2016 01/08/2021 Vitamin B12 deficiency (non anemic) 10/01/2016 01/08/2021 Hypertensive disorder 10/01/20162020 Breast mass 05/24/2015 01/08/2021 DJD (degenerative joint disease) of knee 05/03/2009 01/08/2021 Overview (01/08/2021): Right knee arthroscopy Immunizations Immunization Administration Dates Next Due INFLUENZA [id number] 06/06/2013 Influenza, Quadrivalent, Spl it, Intramuscular 06/26/2015 Influenza, Trivalent, High D ose, Split, Preservative Free, Intramuscular 07/26/2019,07/07/2018,06/29/2016 Influenza, Trivalent, Preser vative Free, Intramuscular 06/26/2014 Influenza, Unspecified 06/06/2017 Pfizer SARS-CoV-2 Monovalent Vaccination (12+ Yrs) PURPLE 10/21/2020,09/30/2020 Pneumococcal Conjugate PCV 13 12/06/2014 Pneumococcal Polysaccharide PPV23 05/26/2010 Tdap 08/03/2008 ZOSTER LIVE 12/17/2011 Social History Tobacco Use Types Packs/Day Years Used Date Smoking Tobacco: Former Cigarettes 1.3 25 1 959 - 1984 Smokeless Tobacco: Never Tobacco Cessation:Counseling Given: No [...] on file 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 Gender Identity Not on file Sexual Orientation Not on file Last Filed Vital Signs [...] on file Medical Devices Implanted Type Area Electric Deicer Assembler Device Identifier Shelf Expiration Date Model / Serial / Lot Screw 13mm 2.5mm Bone Cortical Aptus 5/Pk - [id number] Implanted:Qty: 1 on 09/05/2019 by Sole Marshall MD at [facility] Left: Radius [employer] A-5700.13 / / [employer] A-5750.16/1 2.5mm 16mm Trilock Hexadrive Wrist Radius Screw Bone - [id number] Implanted:Qty: 1 on 09/05/2019 by Sole Marshall MD at [facility] Left: Radius [employer] A-5750.16/1 / / [employer] A-5750.18/1 Aptus Trilock 2.5mm 18mm Hexadrive 7 Adaptive Wrist Radius - [id number] Implanted:Qty: 1 on 09/05/2019 by Sole Marshall MD at [facility] Left: Radius [employer] A-5750.18/1 / / [employer] A-5750.20 2.5mm 20mm Lock Cortical Screw Bone - [id number] Implanted:Qty: 1 on 09/05/2019 by Sole Marshall MD at [facility] Left: Radius [employer] A-5750.20 / / [employer] A-4750.17 Aptus Trilock [id number] 12 Hole Locking Left Distal Volar - [id number] Implanted:Qty: 1 on 09/05/2019 by Sole Marshall MD at [facility] Left: Radius [employer] A-4750.17 / / [employer] A-5750.18/1 Aptus Trilock 2.5mm 18mm Hexadrive 7 Adaptive Wrist Radius - [id number] Implanted:Qty: 1 on 09/05/2019 by Sole Marshall MD at [facility] Left: Radius [employer] A-5750.18/1 / / [employer] A-5750.16/1 2.5mm 16mm Trilock Hexadrive Wrist Radius Screw Bone - [id number] Implanted:Qty: 1 on 09/05/2019 by Sole Marshall MD at [facility] Left: Radius [employer] A-5750.16/1 / / Screw 11mm 2.5mm Bone Cortical Aptus Titanium Hd7 5/Pk - [id number] Implanted:Qty: 1 on 09/05/2019 by Sole Marshall MD at [facility] Left: Radius [employer] A-5700.11 / / [employer] A-5700.12 Aptus 2.5mm 12mm Cortical Screw Bone - [id number] Implanted:Qty: 1 on 09/05/2019 by Sole Marshall MD at [facility] Left: Radius [employer] A-5700.12 / / [employer] A-5700.14 Aptus 2.5mm 14mm Cortical Screw Bone - [id number] Implanted:Qty: 1 on 09/05/2019 by Sole Marshall MD at [facility] Left: Radius [employer] A-5700.14 / / [employer] A-5750.18/1 Aptus Trilock 2.5mm 18mm Hexadrive 7 Adaptive Wrist Radius - [id number] Implanted:Qty: 1 on 09/05/2019 by Sole Marshall MD at [facility] Left: Radius [employer] A-5750.23/09 / / Explanted Type Area Electric Deicer Assembler Device Identifier Shelf Expiration Date Model / Serial / Lot [employer] [id number] Ceasar .045in 9in [place] [employer] Orthopedic Wire - [id number] Explanted:Qty: 1 on 09/05/2019 at [facility] Left: Radius [employer] [id number] / / Insurance MEDICARE [facility] Advance Directives For more information, please contact: [phone] * LIMITED - No CPR (Latest Code Status on File) Date Activated Date Inactivated Comments 01/07/2021 11:31 AM 01/11/2021 7:05 PM * Full Code Date Activated Date Inactivated Comments 01/07/2021 8:54 AM 01/07/2021 11:31 AM Care Teams Marketing Traffic Manager Relationship Specialty Start Date End Date Jason Bryant MD PCP - General Internal Medicine 08/10/19
--- OUTSIDE RECORDS SUMMARY | 2025-04-02 12:29 | XMS_ITS | Encounter Summary ---
Author Organization [facility] Address [address] [place] [address] Care Team Providers Care Cougar Hunter Name Role Phone Not Found, Stl Primary Care Provider Unavailabl e Encounter Details Date Type Department Care Team (Latest Contact Info) Description 03/23/2008 Outpatient Historical HIS [facility] GISELL Corona, MD [address] [facility] [address] [place] [id number] Pure Hypercholesterolemia Social History Tobacco Use Types Packs/Day Years Used Date Smoking Tobacco: Never Assessed Comments Unknown Sex and Gender Information Value Date Recorded Sex Assigned at Not on file 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 Gender Identity Not on file Sexual Orientation Not on file documented as of this encounter Plan of Treatment Not on file documented as of this encounter Procedures Procedure Name Priority Date/Time Associated Diagnosis Comments CBC WITH DIFFERENTIAL Routine 03/23/2008 2:51 PM CDT TSH Routine 03/23/2008 2:51 PM CDT LIPID PANEL Routine 03/23/2008 2:51 PM CDT COMPREHENSIVE METABOLIC PANEL Routine 03/23/2008 2:51 PM CDT documented in this encounter Results * (ABNORMAL) COMPREHENSIVE METABOLIC PANEL (03/23/2008 2:51 PM CDT) [facility] Signature CHLORIDE 104 96 - 108 mmol/L [facility] CREATININE 0.84 0.51 - 0.95 mg/dL [facility] ALT 26 0 - 31 U/L [facility] SODIUM 138 135 - 145 mmol/L [facility] ALKALINE PHOSPHATASE 80 35 - 104 U/L [facility] CO2 22 22 - 30 mmol/L [facility] BILIRUBIN TOTAL 0.2 0.2 - 1.0 mg/dL [facility] POTASSIUM 3.3(L) 3.5 - 4.9 mmol/L [facility] TOTAL PROTEIN 7.0 6.3 - 8.6 g/dL [facility] GLUCOSE 79 65 - 99 mg/dL [facility] AST 27 12 - 32 U/L [facility] BUN 16 6 - 20 mg/dL [facility] CALCIUM 8.4 8.4 - 10.2 mg/dL [facility] ALBUMIN 4.1 3.4 - 4.8 g/dL [facility] GFR, >60 >=60 mL/min/1. 7 sq meter [facility] GFR >60 >=60 mL/min/1. 7 sq meter [facility] Comment: Modification of Diet in Renal Disease (MDRD) study formula. Estimated GFR rate interpretative information for both Americans and non- Americans is available on the [facility] Intranet at: [email or web address] Select: Lab Policies and Procedures Select: Reference Ranges - GFR Blood specimen (specimen) 03/23/2008 2:51 PM CDT 03/23/2008 3:57 PM CDT us Bryn Corona MD CHEMISTRY ORDERABLES Edited [facility] CLIA# [id number] [address] [place] [address] * TSH (03/23/2008 2:51 PM CDT) Pathologist [facility] TSH 2.31 0.27 - 4.20 uU/mL [facility] Blood specimen (specimen) 03/23/2008 2:51 PM CDT 03/23/2008 3:57 PM CDT Bryn Corona MD CHEMISTRY ORDERABLES Final Resul t [facility] CLIA# [id number] [address] [place] [address] * (ABNORMAL) CBC WITH DIFFERENTIAL (03/23/2008 2:51 PM CDT) Pathologist [facility] RBC 4.05 3.90 - 4.90 M/uL [facility] MCHC 31.9 31.5 - 35.5 % [facility] MCV 88.9 82.0 - 99.0 fL [facility] PLATELETS 206 140 - 350 K/uL [facility] HEMOGLOBIN 11.5(L) 11.8 - 14.8 g/dL [facility] RDW 13.9 11.5 - 14.5 % [facility] WBC 5.7 4.0 - 9.8 K/uL [facility] MCH 28.4 27.2 - 32.6 pg [facility] MPV 10.7 9.3 - 12.4 fL [facility] HEMATOCRIT 36.0 35.5 - 44.0 % [facility] RDW-STDEV 45.4 37.1 - 48.7 fL [facility] MONOCYTES 10 3 - 13 % [facility] MONOCYTE ABSOLUTE 0.58 0.10 - 1.30 K/uL [facility] NEUTROPHILS 60 45 - 70 % [facility] NEUTROPHIL ABSOLUTE 3.44 1.90 - 7.00 K/uL [facility] EOSINOPHILS 2 0 - 7 % [facility] EOSINOPHIL ABSOLUTE 0.14 0.00 - 0.70 K/uL [facility] LYMPHOCYTES 27 16 - 45 % [facility] LYMPHOCYTE ABSOLUTE 1.56 0.70 - 4.50 K/uL [facility] BASOPHILS 0 0 - 2 % [facility] BASOPHILS ABSOLUTE 0.02 0.00 - 0.20 K/uL [facility] Blood specimen (specimen) 03/23/2008 2:51 PM CDT 03/23/2008 3:57 PM CDT Bryn Corona MD HEMATOLOGY ORDERABLES Edited INTERFACE SYSTEM Refer to clinic/hospital department [facility] CLIA# [id number] [address] [place] [address] * (ABNORMAL) LIPID PANEL (03/23/2008 2:51 PM CDT) CHOL/HDL RATIO 2.6 2.0 - 5.0 [facility] TRIGLYCERIDE 150(H) 10 - 149 mg/dL [facility] HDL 74(H) 40 - 59 mg/dL [facility] CHOLESTEROL 189 100 - 199 mg/dL [facility] LDL CALCULATED 85 <=99 mg/dL [facility] LIPID PANEL COMMENT See Below [facility] Comment: The adult ATP and pediatric NCEP classifications for lipids are available on the [facility] Intranet at: [email or web address] Select: Lab Policies and Procedures,Current Select: Lipid Panel Interpretation Blood specimen (specimen) 03/23/2008 2:51 PM CDT 03/23/2008 3:57 PM CDT us Bryn Corona MD CHEMISTRY ORDERABLES Edited [facility] CLIA# [id number] [address] [place] [address] documented in this encounter Visit Diagnoses Diagnosis Pure hypercholesterolemia documented in this encounter Care Teams Cougar Hunter Relationship Specialty Start Date End Date Not Found, Stl NO ADDRESS ON FILE PCP - General 05/09/15 documented as of this encounter
--- OUTSIDE RECORDS SUMMARY | 2025-04-02 12:29 | XMS_ITS | Data Portability ---
Author Organization [place] - [employer], Main Office Address [address] [place] [address] Care Team Providers Care Mechanical Design Engineer Name Role Phone QUINTON GARCIA Primary Care Provider ALLIE SABILLON Remote Sensing Surveyor CRISTI ALEJANDRA Psychiatrist Assessment Encounter Date Assessment Date Assessment LastModified by Organization Details LastModified Time 03/14/2024 03/14/2024 raised small lesion posterior neck. Appears benign. Not cystic. Hypertrophic skin. Do not recommend any surgical intervention. Patient was reassured. Follow up p.r.n. [email or web address] Not available 03/14/2024 10:48:25 07/05/2024 07/05/2024 Addendum: 03/12/2024: Case sent Chol 227, LDL 115 Gluc 105, BUN 22, Cr 1.32, GFR 38 40 minutes spent with the patient, labs reviewed with the patient and updated in the chart, referrals provided, especially to pain management and neph[email or web address] Not available 07/07/2024 13:59:48 11/01/2024 11/01/2024 Addendum: 03/12/2024: Case sent Chol 227, LDL 115 Gluc 105, BUN 22, Cr 1.32, GFR 38 40 minutes spent with the patient, labs reviewed with the patient and updated in the chart, referrals provided, especially to pain management and nephrology [email or web address] Not available 11/01/2024 14:27:40 Plan of Treatment Reminders Order Date Submit Date Provider Last Modified By Organization Details Last Modified Time Details Appointments Any 15 2024 10:00A Jose morrison MD Not available Not available Not available [facility] 15 2024 11:15A Jose Quinton morrison MD Not available Not available Not available Follow Up 15 2024 10:45A Jose Quinton morrison MD Not available Not available Not available Lab CMP, serum or plasma 2024 025 [email or web address] [facility], [address], [place], [address], 11/15/2024 08:13:15 lipid panel, serum 2024 025 [employer] [facility], [address], [place], [address], 11/07/2024 08:27:42 T4, free, serum 2024 025 [employer] [facility], [address], [place], [address], 11/07/2024 08:28:00 CBC w/ auto diff 2024 025 [email or web address] [facility], [address], [place], [address], 11/15/2024 08:13:14 TSH, serum or plasma 2024 025 [employer] [facility], [address], [place], [address], 11/07/2024 08:28:36 vitamin B12 + folate, serum or blood 2024 025 [employer] [facility], [address], [place], [address], 11/07/2024 08:28:54 CMP, serum or plasma [email or web address] [place] [address] ([facility]), [address] [place], [address], 01/01/2025 14:06:55 lipid panel, serum [address] (Lab), [address] [place], [address], 01/01/2025 14:06:56 T4, free, serum [address] (Lab), [address] [place], [address], 01/01/2025 14:06:56 CBC w/ auto diff [address] (Lab), [address] [place], [address], 01/01/2025 14:06:56 TSH, serum or plasma [address] (Lab), [address] [place], [address], 01/01/2025 14:06:56 vitamin B12 + folate, serum or blood [address] (Lab), [address] [place], [address], 01/01/2025 14:06:56 Referral pain managem ent referra l - Please call patient to beatrice e an appoint ment. Thank you. 2024 025 [email or web address] [facility], [address], [address], [place], [address], 02/06/2025 16:54:20 nephrol ogist referra l - Please call patient to beatrice e an appoint ment. Thank you. 2024 025 jaguar Bertrand MD, [address], [address], [place], [address], 02/06/2025 16:54:19 pain managem ent referra l - Please call patient to beatrice jaramillo 2023 024 [email or web address] [facility], [address], [place], [address], 11/13/2024 17:40:16 nephrol ogist refer l - Please call patient to schedgabbie jaramillo 2023 024 [email or web address] Eden Bertrand MD, [address], [address], [place], [address], 11/13/2024 17:40:15 Procedures upper endosco py procedu re (EGD) (PROC) - Please call patient to beatrice greenfield appoint ment. Thank you. 2024 025 [email or web address] Beau Jaimes MD, [address] [facility] [address], [place], [address], 01/30/2025 08:42:48 upper endosco py procedu re (EGD) (PROC) - Please call patient to beatrice jaramillo 2023 024 [email or web address] Beau Jaimes MD, [address] [facility] [address], [address], [place], [address], 03/13/2025 08:19:18 Surgeries None recorde d. Imaging None recorde d. Medication Orders montelu kast 10 mg tablet 2024 POCONO MANOR [id number], [address], [place], [place], [id number], 11/01/2024 15:30:17 nystati n-triam cinolon e 100,000 unit/g- 0.1 % topical cream 2024 [facility], [address], [place], [place], [id number], 11/01/2024 15:30:17 amoxici llin 875 mg-pota ssium clavula elias 125 mg tablet 2024 025 [facility] #[id number], [address], [place], [place], [id number], 11/01/2024 15:30:19 Flonase Allergy Relief 50 mcg/act uation nasal spray,s uspensi on 2024 025 [facility] #90802, [address], [place], [place], [id number], 11/01/2024 15:30:17 Airsupr a 90 mcg-80 mcg/act uation HFA aerosol inhaler 2023 024 lona [facility] #14330, [address], [place], [place], [id number], 04/02/2025 11:20:36 Patient TargetsNo targets recorded. Patient InstructionsNo instructions recorded. 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 Referring Physician: Quinton Garcia Internal Medicine, Encounter Date: 07/05/2024 Pain Management Referral for Chronic low back pain Please call patient to schedule. 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 Thank you. Referring Physician: Quinton Garcia Internal Medicine, Encounter Date: 11/01/2024 Pain Management Referral for Chronic low back pain Please call patient to schedule an appointment. Thank you. 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 Thank you. Referring Physician: Quinton Garcia Internal Medicine, Encounter Date: 04/02/2025 Pain Management Referral for Chronic low back pain Please call patient to schedule an appointment. Thank you. Referring Physician: Quinton Garcia Internal Medicine, Encounter Date: 04/02/2025 Remote Sensing Surveyor Referral fo r Acute otitis media Referring Physician: Quinton Garcia Internal Medicine, Encounter Date: 04/02/2025 Results Created Date Observation Date Name Description Value Unit Range Abnormal Flag Note LastModifiedBy Organization Detail LastModifiedTime 03/07/20 24 03/07/2024 CBC/C OMPLE TE BLD COUNT W/DIF F white blood cells 6.0 x10'3 /uL 4.2-10 .8 Not Available [facility] (Lab) [address] [place], [address], 03/07/2024 13:17:05 03/07/20 24 03/07/2024 CBC/C OMPLE TE BLD COUNT W/DIF F red blood cells 4.34 x10'6 /uL 3.80-5 .20 Not Available [facility] (Lab) [address] [place], [address], 03/07/2024 13:17:05 03/07/20 24 03/07/2024 CBC/C OMPLE TE BLD COUNT W/DIF F hemoglobin 13.7 g/dL 12.0-1 5.6 Not Available [facility] (Lab) [address] [place], [address], 03/07/2024 13:17:05 03/07/20 24 03/07/2024 CBC/C OMPLE TE BLD COUNT W/DIF F hematocrit 41.2 % 35.7-4 5.7 Not Available [facility] (Lab) [address] [place], [address], 03/07/2024 13:17:05 03/07/20 24 03/07/2024 CBC/C OMPLE TE BLD COUNT W/DIF F mean red cell volume 94.9 fL 82.0-9 9.0 Not Available [facility] (Lab) [address] [place], [address], 03/07/2024 13:17:05 03/07/20 24 03/07/2024 CBC/C OMPLE TE BLD COUNT W/DIF F mean red cell hemoglobin 31.6 pg 27.0-3 3.0 Not Available [facility] (Lab) [address] [place], [address], 03/07/2024 13:17:05 03/07/20 24 03/07/2024 CBC/C OMPLE TE BLD COUNT W/DIF F mean RBC HGB concentratio n 33.3 g/dL 31.0-3 6.0 Not Available [facility] (Lab) [address] [place], [address], 03/07/2024 13:17:05 03/07/20 24 03/07/2024 CBC/C OMPLE TE BLD COUNT W/DIF F red cell distribution width 12.0 % 11.8-1 5.5 Not Available [facility] (Lab) [address] [place], [address], 03/07/2024 13:17:05 03/07/20 24 03/07/2024 CBC/C OMPLE TE BLD COUNT W/DIF F platelets 218 x10'3 /uL 150-40 0 Not Available [facility] (Lab) [address] [place], [address], 03/07/2024 13:17:05 03/07/20 24 03/07/2024 CBC/C OMPLE TE BLD COUNT W/DIF F mean platelet volume 10.4 fL 9.0-12 .4 Not Available [facility] (Lab) [address] [place], [address], 03/07/2024 13:17:05 03/07/20 24 03/07/2024 CBC/C OMPLE TE BLD COUNT W/DIF F neutrophils 71.2 % 39.0-7 2.0 Not Available [facility] (Lab) [address] [place], [address], 03/07/2024 13:17:05 03/07/20 24 03/07/2024 CBC/C OMPLE TE BLD COUNT W/DIF F lymphocytes 17.7 % 16.0-4 7.0 Not Available [facility] (Lab) [address] [place], [address], 03/07/2024 13:17:03/07/20 24 03/07/2024 CBC/C OMPLE TE BLD COUNT W/DIF F monocytes 7.0 % 5.0-12 .0 Not Available [facility] (Lab) [address] [place], [address], 03/07/2024 13:17:03/07/20 24 03/07/2024 CBC/C OMPLE TE BLD COUNT W/DIF F eosinophils 3.0 % 1.0-7. 0 Not Available [facility] (Lab) [address] [place], [address], 03/07/2024 13:17:03/07/20 24 03/07/2024 CBC/C OMPLE TE BLD COUNT W/DIF F basophils 0.8 % 0.0-2. 0 Not Available [facility] (Lab) [address] [place], [address], 03/07/2024 13:17:03/07/2003/07/2024 CBC/C OMPLE TE BLD COUNT W/DIF F immature granulocytes 0.3 % 0.00-0 .50 Not Available [facility] (Lab) [address] [place], [address], 03/07/2024 13:17:03/07/20 24 03/07/2024 CBC/C OMPLE TE BLD COUNT W/DIF F neutrophils, absolute count 4.27 x10'3 /uL 1.5-8. 0 Not Available [facility] (Lab) [address] [place], [address], 03/07/2024 13:17:05 03/07/20 24 03/07/2024 CBC/C OMPLE TE BLD COUNT W/DIF F lymphocytes, absolute count 1.06 x10'3 /uL 1.07-3 .43 low Not Available [facility] (Lab) [address] [place], [address], 03/07/2024 13:17:05 03/07/20 24 03/07/2024 CBC/C OMPLE TE BLD COUNT W/DIF F monocytes, absolute count 0.42 x10'3 /uL 0.29-0 .99 Not Available [facility] (Lab) [address] [place], [address], 03/07/2024 13:17:05 03/07/20 24 03/07/2024 CBC/C OMPLE TE BLD COUNT W/DIF F eosinophils, absolute count 0.18 x10'3 /uL 0.02-0 .53 Not Available [facility] (Lab) [address] [place], [address], 03/07/2024 13:17:05 03/07/20 24 03/07/2024 CBC/C OMPLE TE BLD COUNT W/DIF F basophils, absolute count 0.05 x10'3 /uL 0.01-0 .08 Not Available [facility] (Lab) [address] [place], [address], 03/07/2024 13:17:05 03/07/20 24 03/07/2024 CBC/C OMPLE TE BLD COUNT W/DIF F immature granulocytes ,absolute 0.02 x10'3 /uL 0.00-0 .05 Not Available [facility] (Lab) [address] [place], [address], 03/07/2024 13:17:05 03/07/20 24 03/07/2024 CBC/C OMPLE TE BLD COUNT W/DIF F nucleated red blood cells 0.0 % -0 Not Available [facility] (Lab) [address] [place], [address], 03/07/2024 13:17:05 03/07/20 24 03/07/2024 CBC/C OMPLE TE BLD COUNT W/DIF F NRBC# 0.00 x10'3 /uL Not Available [facility] (Lab) [address] [place], [address], 03/07/2024 13:17:05 03/07/20 24 03/07/2024 COMPR EHENS ROSA METAB OLIC PANEL sodium 139 mmol/ L 137-14 5 Not Available [facility] (Lab) [address] [place], [address], 03/07/2024 17:51:23 03/07/20 24 03/07/2024 COMPR EHENS ROSA METAB OLIC PANEL potassium 4.0 mmol/ L 3.5-5. 1 Not Available [facility] (Lab) [address] [place], [address], 03/07/2024 17:51:23 03/07/20 24 03/07/2024 COMPR EHENS ROSA METAB OLIC PANEL chloride 109 mmol/ L 98-107 high Not Available [facility] (Lab) [address] [place], [address], 03/07/2024 17:51:23 03/07/20 24 03/07/2024 COMPR EHENS ROSA METAB OLIC PANEL carbon dioxide 24 mmol/ L 22-30 Not Available [facility] (Lab) [address] [place], [address], 03/07/2024 17:51:23 03/07/20 24 03/07/2024 COMPR EHENS ROSA METAB OLIC PANEL anion gap 10.0 mmol/ L 14-22 low Not Available [facility] (Lab) [address] [place], [address], 03/07/2024 17:51:23 03/07/20 24 03/07/2024 COMPR EHENS ROSA METAB OLIC PANEL glucose 105 mg/dL 70-99 high Not Available [facility] (Lab) [address] [place], [address], 03/07/2024 17:51:23 03/07/20 24 03/07/2024 COMPR EHENS ROSA METAB OLIC PANEL BUN 22 mg/dL 8-19 high Not Available [facility] (Lab) [address] [place], [address], 03/07/2024 17:51:23 03/07/20 24 03/07/2024 COMPR EHENS ROSA METAB OLIC PANEL creatinine 1.32 mg/dL 0.66-1 .25 high Not Available [facility] (Lab) [address] [place], [address], 03/07/2024 17:51:23 03/07/20 24 03/07/2024 COMPR EHENS ROSA METAB OLIC PANEL GFR 38 Refer ence Range : [place] ge GFR Healt hy Adult : >60 mL/mi n/1.7 3 m2 Chron ic Kidne y Disea se: 15-60 mL/mi n/1.7 3 m2 Kidne y Failu re: <15/m L/min /1.73 m2 www.n iddk. nih.g ov The MDRD study equat ion has not been valid ated in child emile <18 years of age; pregn ant women ; the elder ly >85 years of age; or in some racia l or ethni c subgr oups, such as Hispa nics. Outsi de the valid ated chelsey eters , estim ated GFR is less accur ate, requi ring clini homar judgm ent on a case- by-ca se basis . Clini homar inter preta tion for other races and ages must be made by the clini gagan. The MDRD study equat ion has not been valid ated for the evalu ation of serum creat inine relat ed to nutri sandee l statu s or medic ation usage . For perso ns <18 years of age, a pedia tric GFR calcu lator is avail able on the [facility] websi te: https ://ww w.kid samuel.o rg/pr ofess ional s/kdo qi/gf r_cal culat or Not Available [facility] (Lab) [address] [place], [address], 03/07/2024 17:51:23 03/07/20 24 03/07/2024 COMPR EHENS ROSA METAB OLIC PANEL alkaline phosphatase 112 U/L 38-126 Not Available [facility] (Lab) [address] [place], [address], 03/07/2024 17:51:23 03/07/20 24 03/07/2024 COMPR EHENS ROSA METAB OLIC PANEL alanine aminotransfe rase 12 U/L 0-35 Not Available [facility] (Lab) [address] [place], [address], 03/07/2024 17:51:23 03/07/20 24 03/07/2024 COMPR EHENS ROSA METAB OLIC PANEL aspartate aminotransfe rase 21 U/L 15-37 Not Available [facility] (Lab) [address] [place], [address], 03/07/2024 17:51:23 03/07/20 24 03/07/2024 COMPR EHENS ROSA METAB OLIC PANEL bilirubin, total 0.60 mg/dL 0.20-1 .30 Not Available [facility] (Lab) [address] [place], [address], 03/07/2024 17:51:23 03/07/20 24 03/07/2024 COMPR EHENS RSOA METAB OLIC PANEL calcium 10.1 mg/dL 8.4-10 .2 Not Available [facility] (Lab) [address] [place], [address], 03/07/2024 17:51:23 03/07/20 24 03/07/2024 COMPR EHENS ROSA METAB OLIC PANEL total protein 7.7 g/dL 6.3-8. 2 Not Available [facility] (Lab) [address] [place], [address], 03/07/2024 17:51:23 03/07/20 24 03/07/2024 COMPR EHENS ROSA METAB OLIC PANEL albumin 4.6 g/dL 3.0-4. 4 high Not Available [facility] (Lab) [address] [place], [address], 03/07/2024 17:51:23 03/07/20 24 03/07/2024 COMPR EHENS ROSA METAB OLIC PANEL globulin 3.1 g/dL 2.6-4. 2 Not Available [facility] (Lab) [address] [place], [address], 03/07/2024 17:51:23 03/07/20 24 03/07/2024 COMPR EHENS ROSA METAB OLIC PANEL A/G ratio 1.5 ratio 1.0-2. 0 Not Available [facility] (Lab) [address] [place], [address], 03/07/2024 17:51:23 03/07/20 24 03/07/2024 LIPID PANEL cholesterol 227 mg/dL 140-19 9 high NIH [facility] NSUS RECOM MENDA TION FOR AKY STERO L: ADULT CHILD LOW RISK: <200 <170 BORDE RLINE : <200- 239 ----- HIGH RISK: >240 >200 Not Available [facility] (Lab) [address] [place], [address], 03/07/2024 17:51:28 03/07/20 24 03/07/2024 LIPID PANEL triglyceride s 137 mg/dL 0-150 [facility] NSUS REPOR T RECOM MENDA TION FOR TRIGL YCERI JORGE: ADULT CHILD LOW RISK: <150 ----- BODER LINE: 150-1 99 ----- HIGH RISK: >200 ----- Not Available [facility] (Lab) [address] [place], [address], 03/07/2024 17:51:28 03/07/20 24 03/07/2024 LIPID PANEL HDL cholesterol 85 mg/dL 40- Not Available [facility] (Lab) [address] [place], [address], 03/07/2024 17:51:28 03/07/20 24 03/07/2024 LIPID PANEL LDL cholesterol, calculated 115 mg/dL 0-130 [facility] NSUS REPOR T RECOM MENDA TIONS FOR LDL: ADULT CHILD LOW RISK <130 <110 (OPTI MAL LDL) <100 ----- BORDE RLINE : 130-1 59 ----- HIGH RISK: >160 >130 A TRIGL YCERI DE RESUL T >400 INVAL IDATE S THE CALCU LATIO N FOR LDL FRACT IONAT ION - THE LDL RESUL T WILL NOT BE REPOR ALISA. Not Available [facility] (Lab) [address] [place], [address], 03/07/2024 17:51:28 03/07/20 24 03/07/2024 T4 FREE free T4 1.17 NG/dL 0.78-2 .19 Not Available [facility] (Lab) [address] [place], [address], 03/07/2024 18:15:43 03/07/20 24 03/07/2024 TSH W/REF STEPHEN FT4 TSH with reflex free T4 3.600 uIU/m L 0.465- 4.680 Not Available [facility] (Lab) [address] [place], [address], 03/07/2024 18:49:55 03/07/20 24 03/07/2024 VITAM IN B12 (SELAM YASEMIN ) vb12 342 pg/mL 239-93 1 Not Available [facility] (Lab) [address] [place], [address], 03/07/2024 22:03:01 03/07/20 24 03/07/2024 FOLAT E, SERUM /PLAS MA folate 2.94 NG/mL 2.76-2 0.0 Not Available [facility] (Lab) [address] [place], [address], 03/07/2024 22:03:03 04/27/20 24 04/27/2024 COVID -19, INFLU ROLANDO A+B, PCR sars-cov-2 RNA(covid19) ,RT-PCR NEGATI VE This test has been autho rized by the FDA under an Emerg ency Use Autho rizat ion (EUA) for use by autho rized labor atori es. Negat rosa resul ts do not precl ude SARS- CoV-2 and shoul d not be used as the sole basis for treat ment or other patie nt manag ement decis ions. Test resul ts shoul d be corre lated with the clini homar histo ry, epide miolo gical data, and other data avail able to the clini gagan evalu ating the patie nt. Honorio medeiros the Fact Sheet s for healt h care provi ders and patie nts at the [facility] m[facility]: https ://ww w.fda .gov/ media /1363 12/do wnloa d https ://ww w.fda .gov/ media /1363 13/do wnloa d Joaquino andrew y: Real- Time RT-PC R Not Available [facility] (Lab) [address] [place], [address], 04/27/2024 11:48:54 04/27/20 24 04/27/2024 COVID -19, INFLU ROLANDO A+B, PCR influenza A RNA, RT-PCR NEGATI VE Not Available [facility] (Lab) [address] [place], [address], 04/27/2024 11:48:54 04/27/20 24 04/27/2024 COVID -19, INFLU ROLANDO A+B, PCR influenza B RNA, RT-PCR NEGATI VE Not Available [facility] (Lab) [address] [place], [address], 04/27/2024 11:48:54 04/27/20 24 04/27/2024 RAPID STREP A DNA strep A DNA, JASON NEGATI VE negati ve Not Available [facility] (Lab) [address] [place], [address], 04/27/2024 12:02:02 04/27/20 24 04/27/2024 XR, chest , 2 view [facility] [address] [place] [address] Patien t Name: LEONORA VAIL Access ion #: [id number] Sex: F : 1939 4 Dictat ed By: Serjio Mcgee Attend ing Physic perla: LUDWIN CEDILLO [facility] Physic perla: LUDWIN CEDILLO Exam Date: 2023 10:46 AM Exam Name: XR CHEST 2V Admitt ing Diagno sis(es ): XR CHEST 2V, HISTOR Y: cough COMPAR CRISTEL: XR CHEST 2V on DOS: 4 XR CHEST 2V on DOS: 4 TECHNI HOMAR DATA: 1 view of the chest was obtain ed. FINDIN GS: Lines and tubes: None Cardio medias tinal silhou ette: normal Pulmon afshin vascul ature: normal Lung expans ion: normal Lung airspa ce: normal Lung inters titium : normal Pleura : normal Pneumo thorax : no Bones: Unrema rkable Other: no Page 1 [facility] [address] [place] [address] Patien t Name: LEONORA VAIL Access ion #: [id number] Sex: F : 1939 4 Dictat ed By: Serjio Mcgee Attend ing Physic perla: MARSHALL PORTILOL Orderi ng Physic perla: LUDWIN CEDILLO Exam Date: 2023 10:46 AM Exam Name: XR CHEST 2V Admitt ing Diagno sis(es ): IMPRES CRISTOPHER: No acute intrat horaci c abnorm ality. Electr onical ly Signed by: Serjio Mcgee at 2023 11:12: 45 AM Page 2 INTERFACE [facility] (Imaging) [address] [place], [address], 04/27/2024 12:15:05 04/27/20 24 04/27/2024 imagi ng/di agnos tic resul t No observ ation record ed. [facility] [address] [place], [address], 04/27/2024 12:17:20 Result Notes Documentation Provider Name and Address Organization Details Recorded Time Xr, Chest, 2 View : [facility] [address] [place] [address] Patient Name: LEONORA LIZ Sex: F : 1940 Dictated By: Serjio Mcgee Attending Physician: QUINTON GARCIA Ordering Physician: QUINTON GARCIA Exam Date: 04/27/2024 10:46 AM Exam Name: XR CHEST 2V Admitting Diagnosis(es): XR CHEST 2V, HISTORY: cough COMPARISON: XR CHEST 2V on DOS: 11/22/23 XR CHEST 2V on DOS: 11/22/23 TECHNICAL DATA: 1 view of the chest was obtained. FINDINGS: Lines and tubes: None Cardiomediastinal silhouette: normal Pulmonary vasculature: normal Lung expansion: normal Lung airspace: normal Lung interstitium: normal Pleura: normal Pneumothorax: no Bones: Unremarkable Other: no Page [address] [address] Patient Name: LEONORA LIZ Sex: F : 1940 Dictated By: Serjio Mcgee Attending Physician: MISSAEL ALCANTARA Ordering Physician: QUINTON GARCIA Exam Date: 04/27/2024 10:46 AM Exam Name: XR CHEST 2V Admitting Diagnosis(es): IMPRESSION: No acute intrathoracic abnormality. Page 2 Not Available [facility] 04/27/2024 12:15:05 Problems Name Problem SNOMED Code Status Onset Date Resolution Date Notes Provider Name and Address Organization Details Recorded Time Postural dizziness 934420671 Completed Not Available [facility] 3 04:50:48 Acquired trigger finger 7205280 Active Not Available [facility] 3 07:05:53 Urinary incontine nce 175170841 Active Not Available [facility] 3 07:05:53 Insomnia 870327595 Active Not Available [facility] 3 07:05:53 Cataract 713577287 Active Not Available [facility] 3 07:05:53 Asthma 847538273 Active Not Available [facility] 3 07:05:53 Irritable bowel syndrome with diarrhea 541053505 Active Not Available [facility] 3 07:05:53 Lateral epicondyl itis 863279214 Active Not Available [facility] 3 07:05:53 Abdominal pain 09426411 Active Not Available [facility] 3 07:05:53 Pain 28065869 Active Not Available [facility] 3 07:05:53 Gastroeso phageal reflux disease 088031170 Active Not Available [facility] 3 07:05:53 Gastropar esis syndrome 601147822 Active Not Available [facility] 3 07:05:53 Allodynia 086446928 Active Not Available [facility] 3 07:05:53 On examinati on - rash present Active Not Available [facility] 3 07:05:53 Anemia 298831740 Active Not Available [facility] 3 07:05:53 Eruption 245650281 Active Not Available [facility] 3 07:05:53 Aching pain 26472211 Active Not Available [facility] 3 07:05:53 Low back pain 229499939 Active Not Available [facility] 3 07:05:53 Small bowel obstructi on 423095130 Active Not Available [facility] 3 07:05:53 Hypertrig lyceridem ia 454038742 Active Not Available [facility] 3 07:05:53 Localized , primary osteoarth ritis of the wrist 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 Active Not Available [facility] 3 07:05:53 Vitamin D deficienc y 92992976 Active Not Available [facility] [facility] 3 07:05:53 Depressiv e disorder 04206564 Active Not Available [facility] 3 07:05:53 Arthritis 3628303 Active Not Available [facility] 3 07:05:53 Hypertens rosa disorder 27725065 Active Not Available [facility] 3 07:05:53 Disorder of vitamin B12 988747098 Active Not Available [facility] 3 07:05:53 Fever 391182787 Active Not Available [facility] 3 07:05:53 Memory impairmen t 665614677 Active Not Available [facility] 3 07:05:53 Osteoarth ritis 449827727 Active Not Available [facility] 3 07:05:53 Primary herpes simplex infection of genitalia 690987544 Active Not Available [facility] 3 07:05:53 Pain in eye 77509454 Completed Not Available [facility] 3 04:50:52 Nausea 938690740 Completed Not Available [facility] 3 04:50:53 Hypokalem ia 12362197 Active Not Available [facility] 3 07:05:53 Spasm 08663732 Active Not Available [facility] 3 07:05:53 Gastritis 4612453 Active Not Available [facility] 3 07:05:53 Anxiety 71295623 Active Not Available [facility] 3 07:05:53 Cough 47765884 Completed Christal Miller MA null, [place] - [place] [employer] [facility] 4 14:32:49 Candidias is of skin 25209358 Active Not Available [facility] 3 07:05:53 Pain of breast 60683395 Active Not Available [facility] 3 07:05:53 Upper respirato ry infection 47959832 Active Not Available [facility] 3 07:05:53 Pain of wrist region 40790962 Active Not Available [facility] 3 07:05:53 Toxic effect of gas, fumes AND/OR vapors Active Not Available [facility] 3 07:05:53 Pain of joint 17372541 Active Not Available [facility] 3 07:05:53 Allergic rhinitis 03082671 Active Not Available [facility] 3 07:05:53 Vitamin B12 deficienc y (non anemic) 85585150 Active Not Available [facility] 3 07:05:53 Osteoporo sis 28712362 Active Not Available [facility] 3 07:05:53 Otitis media 85995640 Active Not Available [facility] 3 07:05:53 Pain in urethra 3635663 Active Not Available [facility] 3 07:05:53 Nasal congestio n 02742159 Active Not Available [facility] 3 07:05:53 Polyp of colon 68841492 Active Not Available [facility] 3 07:05:53 Muscle pain 32503342 Active Not Available [facility] 3 07:05:53 Intoleran t of cold 14620093 Active Not Available [facility] 3 07:05:54 Perniciou s anemia 73986661 Active Not Available [facility] 3 07:05:54 Fatigue 50690348 Active Not Available [facility] 3 07:05:54 Breast lump 53568334 Active Not Available [facility] 3 07:05:54 Pain in limb 52011038 Active Not Available [facility] 3 07:05:54 Skin lesion 64231920 Active Not Available [facility] 3 07:05:54 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 Not Available [facility] 3 07:05:54 Bilateral cataracts 84654997 Active Not Available [facility] 3 07:05:54 Cataract 153673413 Active 2016 Not Available [facility] 3 07:05:53 Dysuria 75547430 Active 2021 Not Available [facility] 3 07:05:53 Occult blood detected in feces 86674761 Active 2021 Not Available [facility] 3 07:05:53 Urinary tract infectiou s disease 73016543 Active 2021 Not Available [facility] 3 07:05:53 Hadley - lesion 947070334 Active 2021 Not Available [facility] 3 07:05:53 Onychomyc osis of toenails 164409116 Active 2021 Not Available [facility] 3 07:05:53 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 Not Available [facility] 3 07:05:54 Edema 353954860 Active 2021 Not Available [facility] 3 07:05:53 Edema of lower extremity 013825788 Active 2021 Not Available [facility] 3 07:05:52 Candidias is of vagina 83094374 Active 2021 Not Available [facility] 3 07:05:54 Pain of left knee joint 88164643512 4107 Active 2021 Not Available [facility] 3 07:05:53 Impacted cerumen of bilateral ears 35207789941 06329 Active 2021 Not Available [facility] 3 07:05:52 Cobalamin deficienc y 330873138 Active 2021 Not Available [facility] 3 07:05:53 Essential hypertens ion 19479288 Active 2022 Not Available [facility] 3 07:05:53 Dysphagia 78690814 Active 2022 Not Available [facility] 3 07:05:53 Folliculi tis 42890232 Active 2022 Not Available [facility] 3 07:05:53 Esophagea l dysphagia 04016661 Active 2022 Not Available [facility] 3 07:05:53 Ingrowing nail of toe of left foot 84634404379 795119 Active 2022 Not Available [facility] 3 07:05:53 Pain of toe of left foot 48940809400 9108 Active 2022 Not Available [facility] 3 07:05:53 Unable to cut own toenails 887377974 Active 2022 Not Available [facility] 3 07:05:53 Gastroeso phageal reflux disease without esophagit is 347085104 Active 2023 Quinton taveras MD [address], [place], [address] , [employer] [facility] [employer] [facility] 4 11:33:16 Environme ntal allergy 526485831 Active 2023 Quinton taveras MD [address], [place], [address] , [employer] [facility] [employer] [facility] [facility] 4 11:53:01 Genital herpes simplex 40731744 Active 2023 Quinton taveras MD [address], [place], [address] , [place] [facility] 4 12:08:23 Generaliz ed anxiety disorder 16046152 Active 2023 Quinton taveras MD [address], [address], [place], [address] , [place] [facility] 4 12:10:13 Serum vitamin B12 below reference range 966214546 Active 2023 Quinton taveras MD [address], [place], [address] , [place] [facility] 4 12:17:09 Hyperlipi demia 08418671 Active 2023 GERARDO Marie, [place] - [facility] 4 16:18:54 Chronic kidney disease 455498705 Active 2023 Christal Miller MA null, [place] [facility] [place] [facility] 4 16:19:15 Cough 65490414 Active 2023 Christal Miller MA null, [place] - [facility] 4 14:32:49 Pain of bilateral knee joints 99852735212 4104 Active 2023 Quinton taveras MD [address], [place], [address] , [place] [facility] [place] [facility] 4 11:18:19 Chronic low back pain 186013783 Active 2023 Quinton taveras MD [address], [place], [address] , [place] [facility] [place] [facility] 4 11:35:14 Pruritic rash 22774559 Active 2024 Quinton taveras MD [address], [place], [address] , [place] [facility] [place] [facility] 5 15:28:53 Generaliz ed osteoarth ritis 961322917 Active 2024 CARMELA Bass null, [facility] 12:25:32 Primary gonarthro sis, bilateral 779641930 Active 2024 CARMELA Bass null, [place] - [facility] 12:26:24 Infection of ear 616512468 Active 2024 Afua AdamCARMELA null, [facility] 17:52:00 Pain in left lower limb 461731033 Active 2024 Quinton taveras MD [address], [place], [address] , [facility] [employer] [facility] 12:05:08 Acute otitis media 0493993 Active 2024 Quinton taveras MD [address], [address], [place], [address] , [facility] [employer] [facility] 12:07:26 Problem Notes None recorded. Procedures Surgical History Date Name Laterality Status Provider Name and Address Organization Details Recorded Time 024 Medicare Wellness CPT Code, subsequent completed Bala Calero LPN [facility] [employer] [facility] 02/29/2024 09:45:03 023 Nail Debridement completed Brandin Ho DPM [address], [place], [address], [facility] [place] [employer] [facility] 12/29/2022 11:01:49 022 Date of Last Colonoscopy completed Not Available [facility] 11/04/2022 04:42:09 019 Hernia Repair completed Not Available [facility] 11/04/2022 04:42:13 018 Most Recent Bone Density completed Not Available [facility] 11/04/2022 04:42:10 017 Colonoscopy completed Not Available [facility] 11/04/2022 04:42:13 ENT Surgery completed Not Available [facility] 11/04/2022 04:42:13 Wrist arthroscopy/surgery completed Not Available [facility] 11/04/2022 04:42:13 Breast Surgery completed Not Available [facility] 11/04/2022 04:42:13 Knee Surgery completed Not Available [facility] 11/04/2022 04:42:13 Gastrointestinal Surgery completed Not Available [facility] 11/04/2022 04:42:13 Imaging Results None recorded. Procedure Notes None recorded. Medical Equipment None Reported. Allergies Allergen ID Allergen Name Allergen Category Reaction Reaction Severity Criticality Documentation Date Start Date Code Code System Note Provider Name and Address Organization Details Recorded Time 7675 tree and shrub pollen environme nt,medica tion Not available Not available Not available 11/04/2022 98394 UNK Not Available [facility] 3 05:02:40 7676 mold extract environme nt Not available Not available Not available 11/04/2022 84025 8 RxNorm Not Available [facility] 3 05:02:40 7678 codeine medicatio n Not available Not available Not available 11/04/2022 2670 RxNorm Not Available [facility] 3 05:02:40 7679 Bactrim medicatio n rash severe Not available 11/04/2022 70179 9 RxNorm Not Available [facility] 3 05:02:40 7681 sertralin e medicatio n other Not available Not available 11/04/2022 91714 RxNorm feeli ng of light ening strik es acros s the eyes Not Available [facility] 3 05:02:40 7685 lactase medicatio n nausea Not available Not available 11/04/2022 30090 RxNorm Not Available [facility] 3 05:02:40 7687 Lactaid medicatio n anaphylax is Not available Not available 11/04/2022 00592 7 RxNorm lacta id ringe rs for surge carla Not Available [facility] 3 05:02:40 Medications Name Sig Start Date Stop Date Status Note LastModified by Organization Details LastModified Time quetiapin e 25 mg tablet TAKE 1 TABLET BY MOUTH AT BEDTIME 01/13 completed Not Available Not Available Not Available amoxicill in 500 mg capsule Take 1 capsule 3 times a day by oral route for 7 days. active Not Available Not Available No t Available furosemid e 40 mg tablet TAKE 1 TABLET BY MOUTH EVERY DAY 01/13 completed Not Available Not Available Not Available atorvasta tin 40 mg tablet TAKE 1 TABLET BY MOUTH EVERY DAY active Not Available Not Available No t Available methocarb stephanie 500 mg tablet TK 2 TS PO TID FOR FIRST 2 DAYS THEN TK 2 TS HS FOR THE NEXT 2 DAYS active Not Available Not Available No t Available buspirone 5 mg tablet TAKE 1 TABLET BY MOUTH TWICE DAILY FOR ANXIETY 11/21 completed Not Available Not Available Not Available nystatin 100,000 unit/mL oral suspensio n SWISH AROUND 5 ML FOR 30 SECONDS AND SPIT OUT THREE TIMES DAILY FOR 14 DAYS 05/05 completed Not Available Not Available Not Available doxycycli ne hyclate 100 mg capsule TAKE 1 CAPSULE BY MOUTH TWICE DAILY UNTIL FOLLOW UP IN 2 WEEKS 09/11 completed Not Available Not Available Not Available cefuroxim e axetil 250 mg tablet 11/26 completed Not Available Not Available Not Available clindamyc in HCl 300 mg capsule TK 1 C PO TID FOR 7 DAYS active Not Available Not Available No t Available trazodone 50 mg tablet TAKE 1/2 TABLET BY MOUTH AT BEDTIME 04/02 completed Not Available Not Available Not Available azithromy samy 250 mg tablet as directed 07/05 completed Not Available Not Available Not Available alprazola m 1 mg tablet TAKE 1 TABLET BY MOUTH TWICE DAILY 09/11 completed Not Available Not Available Not Available nystatin 100,000 unit/gram topical ointment APPLY TO THE AFFECTED AREA(S) BY TOPICAL ROUTE 2 TIMES PER DAY 04/02 completed Not Available Not Available Not Available fluconazo le 150 mg tablet TAKE 1 TABLET BY MOUTH 1 TIME 07/05 completed Not Available Not Available Not Available ampicilli n 500 mg capsule TAKE ONE CAPSULE BY MOUTH THREE TIMES DAILY 02/18 completed Not Available Not Available Not Available hydrocodo ne 5 mg-acetam inophen 325 mg tablet Take 1 tablet every 8 hours by oral route as needed. 03/06 completed Not Available Not Available Not Available Claritin 10 mg tablet Take 1 tablet every day by oral route for 7 days. 07/25 completed Not Available Not Available Not Available ondansetr on HCl 8 mg tablet TAKE 1 TABLET BY MOUTH EVERY 8 HOURS FOR 2 DAYS active Not Available Not Available No t Available prednison e 20 mg tablet Take 1 tablet every day by oral route for 7 days. active Not Available Not Available No t Available sertralin e 100 mg tablet Take 1 tablet every day by oral route. active Not Available Not Available No t Available Pyridium 100 mg tablet Take 1 tablet 3 times a day by oral route as directed for 3 days. 12/18 completed Not Available Not Available Not Available potassium chloride ER 10 mEq tablet,ex tended release TAKE 2 TABLETS BY MOUTH EVERY DAY active Not Available Not Available No t Available metronida zole 500 mg tablet Take 1 tablet 3 times a day by oral route. 12/26 completed Not Available Not Available Not Available Detrol LA 4 mg capsule,e xtended release take 1 tablet daily active Not Available Not Available No t Available amlodipin e 5 mg tablet TAKE 1 TABLET BY MOUTH EVERY DAY active Not Available Not Available No t Available valacyclo vir 500 mg tablet TAKE 1 TABLET BY MOUTH TWICE DAILY active Not Available Not Available No t Available sulfameth oxazole 800 mg-trimet hoprim 160 mg tablet TAKE 1 TABLET BY MOUTH TWICE DAILY 05/12 completed Not Available Not Available Not Available peg-elect rolyte solution 420 gram oral solution TK 1/2 SOLUTION PO AT 5 PM ON 12/07/16 AND 1/2 AT 5 AM ON 12/08/16 UTD. 04/01 completed Not Available Not Available Not Available aspirin 81 mg tablet,de layed release Take 1 tablet every day by oral route. 07/15 completed Not Available Not Available Not Available tramadol 50 mg tablet TAKE 1 TABLET BY MOUTH EVERY 6 HOURS NEEDED FOR PAIN 03/26 completed Not Available Not Available Not Available amitripty line 50 mg tablet TK 1 T PO QHS 10/12 completed Not Available Not Available Not Available bupropion HCl SR 100 mg tablet,12 hr sustained -release 06/14 completed pt stopped on her own Not Available Not Available Not Available amoxicill in 500 mg tablet TAKE 1 TABLET BY MOUTH TWICE DAILY FOR 7 DAYS 08/25 completed Not Available Not Available Not Available lidocaine -prilocai ne 2.5 %-2.5 % topical cream 05/25 completed Not Available Not Available Not Available meloxicam 7.5 mg tablet active Not Available Not Available Not Available oxycodone -acetamin ophen 5 mg-325 mg tablet 03/06 completed Not Available Not Available Not Available alprazola m 0.5 mg tablet TAKE 1 TABLET BY MOUTH TWICE DAILY 01/13 completed Not Available Not Available Not Available ofloxacin 0.3 % ear drops INSTILL 10 DROPS IN LEFT EAR QD FOR 10 DAYS active Not Available Not Available No t Available amoxicill in 875 mg tablet active Not Available Not Available Not Available prednisol one acetate 1 % eye drops,moira pension active for cataract surgery Not Available Not Available Not Available ciproflox acin 0.3 % eye drops active Not Available Not Available Not Available meclizine 25 mg tablet Take 1 tablet 3 times a day by oral route as needed. active Not Available Not Available No t Available cephalexi n 500 mg capsule TAKE 1 CAPSULE BY MOUTH TWICE DAILY 07/05 completed Not Available Not Available Not Available pantopraz ole 40 mg tablet,de layed release TAKE 1 TABLET BY MOUTH EVERY DAY 11/26 completed Not Available Not Available Not Available cyanocoba yasemin (vit B-12) 1,000 mcg/mL injection solution Inject 1 mL every month by intramus cular route as directed . 11/01 completed Not Available Not Available Not Available diclofena c 0.1 % eye drops active for cataract surgery Not Available Not Available Not Available triamcino lone acetonide 0.1 % topical ointment APPLY THIN LAYER TOPICALL Y TO THE AFFECTED AREA TWICE DAILY 04/02 completed Not Available Not Available Not Available buspirone 10 mg tablet TAKE 1 TABLET BY MOUTH TWICE DAILY active Not Available Not Available No t Available lidocaine 5 % topical patch 01/13 completed Not Available Not Available Not Available nystatin- triamcino lone 100,000 unit/g-0. 1 % topical cream APPLY TO THE AFFECTED AREA(S) BY TOPICAL ROUTE 2 TIMES PER DAY IN THE MORNING AND EVENING 2024 active Not Available Not Available Not Avai lable oxybutyni n chloride ER 5 mg tablet,ex tended release 24 hr TAKE 1 TABLET BY MOUTH EVERY DAY 06/14 completed Not Available Not Available Not Available gabapenti n 300 mg capsule TAKE 1 CAPSULE BY MOUTH THREE TIMES DAILY 11/21 completed Not Available Not Available Not Available omeprazol e 20 mg capsule,d elayed release TAKE 1 CAPSULE BY MOUTH EVERY DAY NEEDED active Not Available Not Available No t Available aspirin 81 mg chewable tablet Chew 1 tablet every day by oral route. 05/25 completed Not Available Not Available Not Available monteluka st 10 mg tablet TAKE 1 TABLET BY MOUTH EVERY DAY active Not Available Not Available No t Available hydrocodo ne 5 mg-acetam inophen 500 mg tablet TK 1 T PO Q 6 H PRN active Not Available Not Available No t Available mupirocin 2 % topical ointment APPLY TO SORES ON BUTTOCK TWICE DAILY 01/13 completed Not Available Not Available Not Available gabapenti n 100 mg capsule TAKE 1 CAPSULE BY MOUTH THREE TIMES DAILY 12/17 completed Not Available Not Available Not Available nystatin 100,000 unit/gram topical powder APPLY TO THE AFFECTED AREA TWICE DAILY FOR 2 WEEKS 11/21 completed Not Available Not Available Not Available cefuroxim e axetil 500 mg tablet Take 1 tablet every 12 hours by oral route. active Not Available Not Available No t Available levofloxa samy 500 mg tablet 02/08 completed Not Available Not Available Not Available methylpre dnisolone 4 mg tablets in a dose pack TK UTD 02/08 completed Not Available Not Available Not Available albuterol sulfate HFA 90 mcg/actua tion aerosol inhaler INHALE 2 PUFFS BY MOUTH EVERY 4 HOURS active Not Available Not Available No t Available ketoconaz ole 2 % topical cream APPLY TO THE AFFECTED AREAS ONCE DAILY 01/13 completed Not Available Not Available Not Available oxybutyni n chloride 5 mg tablet Take 1 tablet every day by oral route. active Not Available Not Available No t Available ondansetr on 4 mg disintegr ating tablet DISSOLVE 1 TABLET ON THE TONGUE EVERY 8 HOURS NEEDED FOR NAUSEA OR VOMITING 01/13 completed Not Available Not Available Not Available clotrimaz ole 1 % topical cream active for cataract surgery Not Available Not Available Not Available sertralin e 50 mg tablet Take 1 tablet 3 times a day by oral route for 90 days. active Not Available Not Available No t Available doxycycli ne hyclate 100 mg tablet TK 1 T PO BID FOR 7 DAYS active Not Available Not Available No t Available amoxicill in 875 mg-potass ium clavulana te 125 mg tablet TAKE 1 TABLET BY MOUTH TWICE DAILY WITH A MEAL active Not Available Not Available No t Available neomycin- polymyxin -hydrocor t 3.5 mg-10,000 unit/mL-1 % ear drops,moira p as directed active Not Available Not Available No t Available Mucinex 600 mg tablet, extended release Take 1 tablet twice a day by oral route for 7 days. 05/25 completed Not Available Not Available Not Available Vitamin D3 25 mcg (1,000 unit) tablet TK 1 T PO QD 07/15 completed Not Available Not Available Not Available Lotrimin Ultra 1 % topical cream APPLY TO THE AFFECTED AND SURROUND ING AREAS OF SKIN BY TOPICAL ROUTE ONCE DAILY active Not Available Not Available No t Available cyclobenz aprine 5 mg tablet Take 1 tablet 3 times a day by oral route as needed. 01/13 completed Not Available Not Available Not Available Restasis 0.05 % eye drops in a dropperet te 03/26 completed Not Available Not Available Not Available Ciprodex 0.3 %-0.1 % ear drops,moira pension INT 3 GTS INTO AFFECTED EAR BID 01/13 completed Not Available Not Available Not Available Klor-Con M20 mEq tablet,ex tended release Take 1 tablet every day by oral route. 06/04 completed dupl Not Available Not Available Not Available nitrofura ntoin monohydra te/macroc rystals 100 mg capsule TK 1 C PO Q 12 H 10/12 completed Not Available Not Available Not Available duloxetin e 30 mg capsule,d elayed release TAKE 1 CAPSULE BY MOUTH DAILY 11/21 completed Not Available Not Available Not Available duloxetin e 60 mg capsule,d elayed release TAKE 1 CAPSULE BY MOUTH DAILY IN THE MORNING active Not Available Not Available No t Available magnesium 07/15 completed Not Available Not Available Not Available Vitamin C takes daily 07/15 completed Not Available Not Available Not Available folic acid 07/15 completed Not Available Not Available Not Available Calcium 600 + D(3) takes 2 tab daily 07/15 completed Not Available Not Available Not Available Symbicort 160 mcg-4.5 mcg/actua tion HFA aerosol inhaler INHALE 2 PUFFS BY MOUTH TWICE DAILY 01/13 completed Not Available Not Available Not Available peg 3350-elec trolytes 236 gram-22.7 4 gram-6.74 gram-5.86 gram solution 12/17 completed Not Available Not Available Not Available FeroSul 325 mg (65 mg iron) tablet TAKE 1 TABLET BY MOUTH TWICE DAILY 04/02 completed Not Available Not Available Not Available Flector 1.3 % transderm al 12 hour patch Apply 1 patch(es ) 12 hours on and then 12 hours off 05/25 completed Not Available Not Available Not Available B12 1 qd 06/04 completed Not Available Not Available Not Available Prolia 60 mg/mL subcutane ous syringe Inject 1 mL by subcutan eous route. active Not Available Not Available No t Available Probiotic takes daily 12/18 completed Not Available Not Available Not Available Flonase Allergy Relief 50 mcg/actua tion nasal spray,moira pension [place] 1 spray every day by intranas al route for 90 days. 2024 active Not Available Not Available Not Avai lable Trulance 3 mg tablet 10/12 completed Not Available Not Available Not Available Airsupra 90 mcg-80 mcg/actua tion HFA aerosol inhaler Inhale 2 inhalati ons 4 times a day by inhalati on route as needed for 90 days. 04/02 completed Not Available Not Available Not Available Vitals Date Recorded Body height Body mass index (BMI) Body weight Body temperature Heart rate Systolic And Diastolic Provider Name and Address Organization Details Last Updated DateTime 5 154.94 cm 32.1 kg/m2 76251.7 g 97.6 [degF] 84 /min 162/88 mm[Hg] CARMELA Bass - [place] 5 15:01:25 Date Recorded Body height Body mass index (BMI) Body weight Heart rate Body temperature Respiratory rate Oxygen saturation Oxygen saturation in Arterial blood by Pulse oximetry Systolic And Diastolic Provider Name and Address Organization Details Last Updated DateTime 4 154.94 cm 31.6 kg/m2 49786.9 3 g 57 /min 97.4 [degF] 16 /min 96 % 96 % 140/80 mm[Hg] Debora Lakenshaw [employer] 4 10:28:14 Date Recorded Body height Body mass index (BMI) Body weight Body temperature Heart rate Oxygen saturation Oxygen saturation in Arterial blood by Pulse oximetry Pain severity - 0-10 verbal numeric rating [Score] - Reported Systolic And Diastolic Provider Name and Address Organization Details Last Updated DateTime 5 154.94 cm 31.4 kg/m2 83441.3 3 g 101 [degF] 78 /min 95 % 95 % 5 140/74 mm[Hg] Irene Castellanos MA [employer] 5 11:15:52 Date Recorded Body height Body mass index (BMI) Body weight Body temperature Heart rate Systolic And Diastolic Provider Name and Address Organization Details Last Updated DateTime 4 154.94 cm 31.4 kg/m2 25690.3 3 g 97.6 [degF] 84 /min 138/80 mm[Hg] CARMELA Bass [employer] 4 10:57:17 Social History Question Answer Notes LastModified by Organizat ion Details LastModified Time Tobacco Smoking Status Former Smoker Not Available [facility] 11/04/2022 04:39:41 Do You Have An Advance Directive? Yes MIGRATION. Information not available 11/04/2022 Do You Wear A Helmet When Biking? No Does Not Bike [email or web address] Information not available 03/01/2024 Are You Blind Or Do You Have Difficulty Seeing? No MIGRATION. 94580 Information not available 11/04/2022 Is Blood Transfusion Acceptable In An Emergency? Yes Information not available 03/01/2024 What Is Your Level Of Caffeine Consumption? Moderate MIGRATION. 04117 Information not available 11/04/2022 How Much Tobacco Do You Chew? None MIGRATION. 29029 Information not available 11/04/2022 What Is Your Code Status? DNR [email or web address] Information not available 03/01/2024 In The 14 Days Before Symptom Onset, Have You Had Close Contact With A Laboratory-cariei rmed COVID-19 While That Case Was Ill? No MIGRATION.38846 87743 Information not available 11/04/2022 In The 14 Days Before Symptom Onset, Have You Had Close Contact With A Person Who Is Under Investigation For COVID-19 While That Person Was Ill? No MIGRATION.33778 72832 Information not available 11/04/2022 Are You Deaf Or Do You Have Serious Difficulty Hearing? Yes Has Hearing Aids But Doesn't Wear Them Because They Dont Fit Information not available 01/13/2023 What Type Of Diet Are You Following? REGULAR MIGRATION.29930 16162 Information not available 11/04/2022 Which Illicit Or Recreational Drugs Have You Used? None MIGRATION.15098 35801 Information not available 11/04/2022 What Is The Highest Grade Or Level Of School You Have Completed Or The Highest Degree You Have Received? [id number] MIGRATION.39342 23938 Information not available 11/04/2022 Have There Been Any Changes To Your Family Or Social Situation? No MIGRATION.06048 29027 Information not available 11/04/2022 What Is The Fluoride Status Of Your Home? Unknown MIGRATION.02967 20187 Information not available 11/04/2022 When Did You Quit Smoking? 15+yearssinc elastcigaret te MIGRATION.16552 55107 Information not available 11/04/2022 Are There Any Guns Present In Your Home? No MIGRATION.81844 27242 Information not available 11/04/2022 Do You Use Insect Repellent Routinely? No MIGRATION.35623 30528 Information not available 11/04/2022 Where Do You Live? Apartment MIGRATION.26093 09658 Information not available 11/04/2022 Advance Directive- Providers Has Reviewed Directive And Consents To Follow Them (insert Provider Name With Any Objectives In Notes Field) Yes [email or web address] Information not available 03/01/2024 Presence Of Domestic Violence No [email or web address] Information not available 03/01/2024 Guns Present In The Home? No Information not available 03/01/2024 Are You Able To Care For Yourself? Yes [email or web address] Information not available 03/01/2024 Are You Blind Or Do Yo Have Difficulty Seeing? No [email or web address] Information not available 03/01/2024 Are You Deaf Or Do You Have Serious Difficulty Hearing? Yes Bilateral Hearing Loss. Has Ill Fitting Hearing Aids So Sh Does Not Wear Them Information not available 03/01/2024 General Stress Level? Moderate [email or web address] Information not available 03/01/2024 Live Alone Of With Others? Alone Information not available 03/01/2024 Do You Have A Medical Power Of Poultry Buyer? Yes Niece Is POA MIGRATION.54441 32480 Information not available 11/04/2022 What Was The Date Of Your Most Recent Tobacco Screening? 04/02/2025 [email or web address] Information not available 04/02/2025 Do You Have Any Pets? No MIGRATION.23899 36753 Information not available 11/04/2022 What Is Your Relationship Status? MIGRATION.90797 90874 Information not available 11/04/2022 Do You Use Your Seat Belt Or Car Seat Routinely? Yes MIGRATION.66208 00211 Information not available 11/04/2022 Do You Have Smoke And Carbon Monoxide Detectors In Your Home? Yes MIGRATION.77844 73206 Information not available 11/04/2022 At What Age Did You Start Smoking Tobacco? 18 MIGRATION.53637 66131 Information not available 11/04/2022 Are You Passively Exposed To Smoke? No MIGRATION.01142 98210 Information not available 11/04/2022 Are There Any Smokers In Your House? No MIGRATION.61388 50649 Information not available 11/04/2022 How Much Tobacco Do You Smoke? No MIGRATION.33033 97729 Information not available 11/04/2022 What Types Of Sporting Activities Do You Participate In? None MIGRATION.19049 58127 Information not available 11/04/2022 Do You Use Sunscreen Routinely? No MIGRATION.08917 56301 Information not available 11/04/2022 Has Tobacco Cessation Counseling Been Provided? No MIGRATION.37141 71994 Information not available 11/04/2022 Have You Recently Traveled Abroad? No MIGRATION.68376 87473 Information not available 11/04/2022 Do You Have Difficulty Walking Or Climbing Stairs? Yes MIGRATION.15542 15938 Information not available 11/04/2022 Do You Have Any Dietary Restrictions? No MIGRATION.73926 59846 Information not available 11/04/2022 Sex: Female Functional Status Question Answer Note LastModified by Organization Details LastModified Time Do you or have you ever used smokeless tobacco? Never used smokeless tobacco MIGRATION.0301 020565 Information not available 11/04/2022 Are you currently employed? No Information not available 01/13/2023 Do you have transportation difficulties? Yes does not drive MIGRATION.0301 823232 Information not available 11/04/2022 Are you able to care for yourself independently? Yes MIGRATION.0301 514556 Information not available 11/04/2022 Do you have difficulty dressing, bathing, grooming, or toileting? No MIGRATION.0301 643763 Information not available 11/04/2022 Do you or have you ever used e-cigarettes or vape? Never used electronic cigarettes MIGRATION.0301 092744 Information not available 11/04/2022 What is your exercise level? Occasional stationary bike MIGRATION.0301 324794 Information not available 11/04/2022 Do you use any illicit or recreational drugs? No MIGRATION.0301 346031 Information not available 11/04/2022 Do you or have you ever used any other forms of tobacco or nicotine? No MIGRATION.0301 746172 Information not available 11/04/2022 What is your level of alcohol consumption? None MIGRATION.0301 289253 Information not available 11/04/2022 Are you able to walk? YESASSIST uses cane MIGRATION.0301 006473 Information not available 11/04/2022 Do you have difficulty doing errands alone? Yes does not drive MIGRATION.0301 767282 Information not available 11/04/2022 What is your occupation? retired MIGRATION.0301 594976 Information not available 11/04/2022 Mental Status Question Answer Note LastModified by Organizat ion Details LastModified Time Do you feel stressed (tense, restless, nervous, or anxious, or unable to sleep at night)? [id number] MIGRATION.44868979 26 Information not available 11/04/2022 Do you have difficulty concentrating, remembering or making decisions? No MIGRATION.39934857 26 Information not available 11/04/2022 Family History Relationship Description Onset Age of this Age Resolved Age Notes LastModified by Organization Details LastModified Time Mother Heart disease MIGRATION.092 [id number] Not available 11/04/2022 04:42:19 Mother Diabetes mellitus MIGRATION.253 [id number] Not available 11/04/2022 04:42:19 Mother Arthritis MIGRATION.317 [id number] Not available 11/04/2022 04:42:19 Mother Hypertensive disorder MIGRATION.194 [id number] Not available 11/04/2022 04:42:19 Father Heart disease MIGRATION.496 6670223 Not available 11/04/2022 04:42:19 Father Dementia MIGRATION.853 [id number] Not available 11/04/2022 04:42:19 Father Arthritis MIGRATION.741 [id number] Not available 11/04/2022 04:42:19 Father Blood coagulation disorder MIGRATION.510 3146990 Not available 11/04/2022 04:42:19 Brother Malignant tumor of colon MIGRATION.089 5540350 Not available 11/04/2022 04:42:19 Brother Congestive heart failure MIGRATION.390 7292124 Not available 11/04/2022 04:42:19 Sister Malignant tumor of breast MIGRATION.635 [id number] Not available 11/04/2022 04:42:19 Medical History Condition Response NERVE DISEASE N BLINDNESS N RHEUMATIC FEVER N KIDNEY STONES N BLADDER PROBLEMS N MRSA N OTHER # 1 Y POLIO N LUNG DISEASE/DISORDER N RADIATION / CHEMOTHERAPY N COPD N Other # 2 N BLOOD DISEASES N SURGERY N EAR OR HEARING PROBLEMS Y MUMPS N BOWEL PROBLEMS Y DEPRESSION (INCLUDING POST ) Y STROKE/TIA N ULCERS Y BENIGN PROSTATIC HYPERPLASIA N MEASLES N MYOCARDIAL INFARCTION N OBESITY N GERD/NAUSEA Y ANEURYSM N URINARY/BLADDER/KIDNEY PROBLEMS Y CORONARY ARTERY DISEASE (CAD) N ADDICTION CONCERNS N Impotence N ENDOMETRIOSIS N USE OF BLOOD THINNERS N SKIN PROBLEMS Y GASTROINTESTINAL DISORDER N PERIPHERAL VASCULAR DISEASE N MUSCLE,JOINT OR BONE PROBLEMS N GASTROINTESTINAL BLEEDING N BLOOD CLOTS N ASTHMA Y CATARACTS Y ERECTILE DYSFUNCTION N VARICOSITIES N GI PROBLEMS N Low Testosterone N INFERTILITY Y AIDS/HIV N CHEMOTHERAPY / RADIATION N LIVER DISEASE N MALE HYPOGONADISM N HYPERTENSION N Deficiency Y ANXIETY DISORDER Y BLOOD TRANSFUSION N ANEMIA/BLOOD DISORDER Y CHRONIC EAR INFECTIONS N BRONCHITIS N TUBERCULOSIS N GLAUCOMA N FOOT PROBLEM N DIVERTICULITIS N SLEEP APNEA N CHICKENPOX N INFECTIOUS DISEASE N PROSTATE N HEART ARRHYTHMIA N INSOMNIA N HIGH CHOLESTEROL / HYPERLIPIDEMIA N EYE PROBLEMS N HYPERTHYROIDISM N NEUROLOGICAL PROBLEMS N EDEMA N CHRONIC PAIN SYNDROME N HYPOTHYROIDISM N CONSTIPATION N CAROTID BLOCKAGE N BACK / NECK PROBLEMS Y HAVE YOU BEEN HOSPITALIZED OR SEEN IN [facility] IN THE PAST YEAR ? N ATHEROSCLEROSIS N BREAST PROBLEMS Y DIALYSIS N ECZEMA N OSTEOPOROSIS Y ARTHRITIS Y APPENDICITIS N DIABETES, TYPE N BAD TEETH N ENT N HEARTBURN / REFLUX N AFIB N AUTISM SPECTRUM DISORDER (ASD) N HEPATITIS / LIVER DISEASE N GOUT N SLEEP DISORDER Y ALZHEIMER'S DISEASE N Brain Problems N DEMENTIA N HERPES Y SEIZURES/EPILEPSY N HEADACHES/MIGRAINES Y VASCULAR DISEASE N PACEMAKER N Blood Disorder N DIZZINESS Y HEART DISEASE/HEART PROBLEMS N KIDNEY DISEASE N MULTIPLE SCLEROSIS N CANCER: SPECIFY N CARDIAC ARRHYTHMIA N ATRIAL FIBRILLATION N Gall Stones N PULMONARY EMBOLISM N AUTOIMMUNE DISEASE N Gynecological History Statement/Question Response Abnormal Pap N Date of Last Mammogram 06/23/2021 Date of Last Colonoscopy 01/14/2022 Date of LMP Most Recent Bone Density 03/22/2018 Menses Monthly N Current Control Method Menopause Obstetrics History GPAL:G 0 P 0 0 0 0 Immunizations Vaccine Type Date Status Note Provider Nam e and Address Organization Details Recorded Time Pneumococcal Conjugate, unspecified formulation 0 completed Not Available [facility] 04/02/2025 10:50:37 Influenza, high-dose, trivalent, PF 7 completed Not Available [facility] 04/02/2025 10:50:37 COVID-19, mRNA, LNP-S, bivalent, PF, 30 mcg/0.3 mL dose 3 completed Not Available [facility] 04/02/2025 10:50:37 COVID-19, mRNA, LNP-S, PF, nadeem-sucrose, 30 mcg/0.3 mL 3 completed Not Available [facility] 04/02/2025 10:50:37 RSV, bivalent, protein subunit RSVpreF, diluent reconstituted, 0.5 mL, PF 4 completed Not Available [facility] 04/02/2025 10:50:37 zoster recombinant 4 completed Not Available [facility] 04/02/2025 10:50:37 Tdap 4 completed Not Available [facility] 04/02/2025 10:50:37 zoster recombinant 4 completed Not Available [facility] 04/02/2025 10:50:37 COVID-19, mRNA, LNP-S, PF, nadeem-sucrose, 30 mcg/0.3 mL 4 completed Not Available [facility] 04/02/2025 10:50:37 influenza, [id number] 3 completed Not Available [facility] 05/06/2023 07:05:55 COVID-19, mRNA, LNP-S, PF, 30 mcg/0.3 mL dose 1 completed Not Available [facility] 05/06/2023 07:05:55 Tdap 8 completed Not Available [facility] 05/06/2023 07:05:55 COVID-19, mRNA, LNP-S, PF, 30 mcg/0.3 mL dose 1 completed Not Available [facility] 05/06/2023 07:05:55 COVID-19, mRNA, LNP-S, PF, 30 mcg/0.3 mL dose 1 completed Not Available [facility] 05/06/2023 07:05:55 Influenza, high-dose, trivalent, PF 8 completed Not Available [facility] 05/06/2023 07:05:55 influenza, unspecified formulation 7 completed Not Available [facility] 05/06/2023 07:05:55 zoster live 2 completed Not Available [facility] 05/06/2023 07:05:55 pneumococcal polysaccharide PPV23 0 completed Not Available [facility] 05/06/2023 07:05:55 Influenza, high-dose, quadrivalent, PF 2 completed Not Available [facility] 05/06/2023 07:05:55 Influenza, high-dose, quadrivalent, PF 1 completed Not Available [facility] 05/06/2023 07:05:55 Influenza, high-dose, quadrivalent, PF 0 completed Not Available [facility] 05/06/2023 07:05:55 Influenza, high-dose, trivalent, PF 9 completed Not Available [facility] 05/06/2023 07:05:55 Influenza, high-dose, trivalent, PF 6 completed Not Available [facility] 05/06/2023 07:05:55 Influenza, split virus, quadrivalent, preservative 5 completed Not Available [facility] 05/06/2023 07:05:55 Pneumococcal conjugate PCV 13 5 completed Not Available [facility] 05/06/2023 07:05:55 Influenza, split virus, trivalent, PF 4 completed Not Available [facility] 05/06/2023 07:05:55 Influenza, high-dose, quadrivalent, PF 3 completed Jason Bryant MD [address], [address], [place], [address], [employer] 08/25/2023 13:20:36 Influenza, high-dose, trivalent, PF 4 completed Quinton Garcia MD [address], [address], [place], [address], [employer] 07/12/2024 13:58:11 Past Encounters Encounter ID Performer Location Encounter Start Date Encounter Closed Date Diagnosis/Indication Diagnosis SNOMED-CT Code Diagnosis ICD10 Code Diagnosis Note [id number] Jason Bryant MD [facility] [address] [place] [address] [address] 12/18/2020 00:00:00 12/18/2020 21:26:28 [id number] Jason Bryant MD [facility] [address] [facility] [address] [address] 03/26/2021 00:00:00 03/29/2021 14:27:01 [id number] Jason Bryant MD [facility] [address] [facility] [address] [address] 06/04/2021 00:00:00 06/22/2021 22:58:15 [id number] Jason Bryant MD [facility] [address] [address] 07/23/2021 00:00:00 07/23/2021 22:54:39 [id number] Jason Bryant MD [facility] [address] [facility] [address] [address] 08/13/2021 00:00:00 08/24/2021 12:59:09 [id number] Jason Bryant MD [facility] [address] [facility] [address] [address] 12/17/2021 00:00:00 12/17/2021 22:59:53 [id number] Jason Bryant MD [facility] [address] [facility] [address] 01/21/2022 00:00:00 01/21/2022 21:53:14 [id number] Brandin Ho DPM [facility] [place] [address] [place] [address] 02/09/2022 00:00:00 02/09/2022 11:53:28 [id number] Jason Bryant MD [facility] [address] [facility] [address] 02/18/2022 00:00:00 03/15/2022 18:05:36 [id number] Jason Bryant MD [facility] [address] [facility], [address] [address] 05/12/2022 00:00:00 05/30/2022 18:31:26 [id number] Jason Bryant MD [facility] [address] [address] 09/11/2022 00:00:00 09/11/2022 15:39:03 [id number] MD TRISTEN [facility] [place] [address] [place] [address] 09/17/2022 00:00:00 09/17/2022 12:08:22 [id number] MD OPAL [facility] [place] [address] [place] [address] 10/07/2022 00:00:00 10/07/2022 12:31:09 [id number] MD TRISTEN [facility] [place] [address] [place] [address] 12/24/2022 14:45:49 12/24/2022 16:05:47 Folliculitis 60525138 L73.9 Esophageal dysphagia 408 18535 R13.19 [id number] Brandin Ho DPM [facility] Pod[facility] [place] [address] [place] [address] 12/29/2022 10:46:12 12/29/2022 11:09:23 Dystrophia unguium 88280893 L60.3 Nails 1 through 10 were debrided with sharp mechanical debridemen t without incident. Nails were debrided and greater than 50% length and thickness where needed. Ingrowing nail of toe of left foot [id number] 8707942 L60.0 medial corner left great toeSlant back procedure performedO ptions reviewed with the patientCon tinue conservati ve therapyFol low-up as needed for this issue Unable to cut own toenails 043236913 Z74.1 Pain of to e of left foot 9244628478 98058 M79.675 secondary to ingrown toenail [id number] Jason Bryant MD [facility] Internal Med [facility] [address] [address] 01/13/2023 13:39:29 01/13/2023 14:35:24 Hypertensive disorder 94136370 I10 Anxiety 18312688 F41.9 Renewal of prescription 444744152 Z76.0 Cobalamin deficiency 190 690979 E53.8 [id number] Jason Bryant MD [facility] Internal Med [facility] [address] [address] 05/05/2023 10:40:01 05/05/2023 11:31:07 Essential hypertension 96746003 I10 Renewal of prescription 827670455 Z76.0 Cobalamin deficiency 190 595741 E53.8 Hypertensive disorder 38 814702 I10 Vitamin B1 2 deficiency (non anemic) 57447430 E53.8 Anxiety 53375515 F41.9 Eruption 962903233 R21 [id number] Jason Bryant MD [facility] Internal Med [facility] [address] [address] 08/25/2023 10:40:33 08/25/2023 12:23:20 Administration of influenza vaccine 87668947 Z23 Cobalamin deficiency 190 826923 E53.8 Hypertensive disorder 38 923336 I10 Anxiety 10845431 F41.9 Osteoporosis 77277126 M8 1.0 [id number] Quinton taveras MD [facility] [address] [facility] [place] [address] 11/22/2023 11:27:31 11/22/2023 12:20:27 Screening - NAD 219674741 Z13.9 C-scope: 01/14/2022 : Dr Benitez next in 5 years Mammogram: 06/23/2021 : Negative DEXA: Get this done PAP: Not doing d/t age, no complaints noted Get yearly flu shot, get tdap if not doneGet shingrix vaccineUTD on pneumonia vaccines as per her historyCan do COVID 19 vaccine and its boosters RTC in 4 months, do labs, ER if worse, she did verbalize her understand ing of the above Essential hypertension 55742174 I10 On amlodipine 5mg dailyOn K ER 10meq dailyGet labs Gastroesop hageal reflux disease without esophagitis 286814143 K21.9 On omeprazole 20mg daily, take as needed, renewed 11/22/2023 Urinary incontinence 165 783194 R32 On oxybutynin 5mg daily, renewed 11/22/2023 Does well Screening for osteoporosis 732776012 Z13.820 Environmental allergy 42 4111293 T78.49XA On albuterol as neededOn singulairO n zyrtec OTCGet on flonaseDoe s well Upper resp iratory infection 51485358 J06.9 Get on the augmentin 875mg po bidGet Xray Padma if not better Addendum: 11/22/2023 : Xr chest neg Genital he rpes simplex 23112080 A60.9 On valacyclov ir 500mg bid, renewed as per her request 11/22/2023 Generalize d anxiety disorder 10386928 F41.1 On buspirone 10mg bidOn duloxetine 60mg dailyNot suicidal or homicidalS ees her psychiatri st Impacted c erumen of bilateral ears 4000251111 330725 H61.23 Get a referral to ENT Serum sharee min B12 below reference range 069847763 R79.89 [id number] Quinton taveras MD [facility] [address] [facility] [place] [address] 03/01/2024 10:03:42 03/01/2024 10:46:28 Screening - NAD 006455171 Z13.9 C-scope: 01/14/2022 : Dr Benitez next in 5 years Mammogram: 06/23/2021 : Negative, not doing these anymore DEXA: 02/03/2024 : Osteoporos is, can do prolia PAP: Not doing d/t age, no complaints noted Get yearly flu shot, get tdap if not doneGet shingrix vaccineUTD on pneumonia vaccines as per her historyCan do COVID 19 vaccine and its boosters RTC in 4 months, must do labs, ER if worse, she did verbalize her understand ing of the above Essential hypertension 19988925 I10 On amlodipine 5mg dailyOn K ER 10meq dailyGet labs Gastroesop hageal reflux disease without esophagitis 655214825 K21.9 On omeprazole 20mg daily, take as needed, renewed 03/01/2024 Urinary incontinence 165 022876 R32 On oxybutynin 5mg daily, renewed 03/01/2024 Does well Environmental allergy 42 8470401 T78.49XA On albuterol as needed renewed 03/01/2024 On singulair renewed 03/01/2024 On zyrtec OTCOn flonaseDoe s well Genital he rpes simplex 34988287 A60.9 On valacyclov ir 500mg bid, renewed as per her request 11/22/2023 , 03/01/2024 Generalize d anxiety disorder 86271070 F41.1 On buspirone 10mg bidOn duloxetine 60mg dailyNot suicidal or homicidalS ees her psychiatri st Dr Alejandra Impacted c erumen of bilateral ears 3631077757 206909 H61.23 Get a referral to ENT Serum sharee min B12 below reference range 335268347 R79.89 Osteoporosis 46846435 M8 1.0 Can do prolia, must do ca and vit d Adult heal th examination 471906335 Z00.00 Screening for disorder 564280796 Z13.9 Renewal of prescription 086091022 Z76.0 Skin lesion 25090769 L98 .9 Small raised tender swelling noted on the L lateral neck, will refer to Dr Dockery [id number] Primitivo daniels MD [facility] General Surgery [address] [place] [address] 03/14/2024 10:20:31 03/23/2024 12:32:04 Skin lesion 91149875 L98.9 Post Neck [id number] Quinton taveras MD [facility] Internal Med [facility] [address] [facility] [place] [facility] [place] [address] 07/05/2024 10:42:19 07/05/2024 11:39:52 Screening - NAD 980787710 Z13.9 C-scope: 01/14/2022 : Dr Benitez next in 5 years Mammogram: 06/23/2021 : Negative, not doing these anymore DEXA: 02/03/2024 : Osteoporos is, can do prolia PAP: Not doing d/t age, no complaints noted Get yearly flu shot, get tdap if not doneGet shingrix vaccineUTD on pneumonia vaccines as per her historyCan do COVID 19 vaccine and its boosters RTC in 4 months, must do labs, ER if worse, she did verbalize her understand ing of the above Essential hypertension 78594664 I10 On amlodipine 5mg dailyOn K ER 10meq dailyGet labs Gastroesop hageal reflux disease without esophagitis 047626629 K21.9 On omeprazole 20mg daily, take as needed, renewed 03/01/2024 , will refer to GI for EGD Urinary incontinence 165 701433 R32 On oxybutynin 5mg dailyDoes well Environmental allergy 42 4136842 T78.49XA On albuterol as neededOn singulairO n zyrtec OTCOn flonaseDoe s well Genital he rpes simplex 73011567 A60.9 On valacyclov ir 500mg bid, renewed as per her request 11/22/2023 , 03/01/2024 Generalize d anxiety disorder 01447581 F41.1 On buspirone 10mg bidOn duloxetine 60mg dailyNot suicidal or homicidalS ees her psychiatri st Dr Alejandra Serum sharee min B12 below reference range 097235860 R79.89 Osteoporosis 95022781 M8 1.0 Can do prolia, must do ca and vit d Skin lesion 50606608 L98 .9 Small raised tender swelling noted on the L lateral neck, will refer to Dr Dockery 03/14/2024 : Dr Dockery Asthma [id number] J45.90 9 Will start on airsupraAl l side effects explained to her Chronic ki dney disease 985481404 N18.9 Refer to nephrology Chronic low back pain 27 6289513 M54.50 Needs to see pain management , referral provided Administra tion of influenza vaccine 07357842 Z23 [id number] Quinton taveras MD [facility] Primary Care [facility] [address] [place] [address] 11/01/2024 14:15:50 11/01/2024 16:03:57 Screening - NAD [id number] Z13.9 C-scope: 01/14/2022 : Dr Benitez next in 5 years Mammogram: 06/23/2021 : Negative, not doing these anymore DEXA: 02/03/2024 : Osteoporos is, can do prolia PAP: Not doing d/t age, no complaints noted Get yearly flu shot, get tdap if not doneGet shingrix vaccineUTD on pneumonia vaccines as per her historyCan do COVID 19 vaccine and its boosters RTC in 4 months, must do labs, ER if worse, she did verbalize her understand ing of the above Essential hypertension 99700920 I10 On amlodipine 5mg dailyOn K ER 10meq dailyGet labs Gastroesop hageal reflux disease without esophagitis 497694857 K21.9 On omeprazole 20mg daily, take as needed, renewed 03/01/2024 , will refer to GI for EGD Urinary incontinence 165 685909 R32 On oxybutynin 5mg dailyDoes well Environmental allergy 42 4026782 T78.49XA On albuterol as neededOn singulairO n zyrtec OTCOn flonaseDoe s well Genital he rpes simplex 03356531 A60.9 On valacyclov ir 500mg bid, renewed as per her request 11/22/2023 , 03/01/2024 Generalize d anxiety disorder 79251599 F41.1 On buspirone 10mg bidOn duloxetine 60mg dailyNot suicidal or homicidalS ees her psychiatri st Dr Alejandra Serum sharee min B12 below reference range 379401090 R79.89 Osteoporosis 75269170 M8 1.0 Can do prolia, must do ca and vit d Skin lesion 10526286 L98 .9 Small raised tender swelling noted on the L lateral neck, will refer to Dr Dockery 03/14/2024 : Dr Dockery Asthma 673031572 J45.90 9 Will start on airsupraAl l side effects explained to her Chronic ki dney disease 090775440 N18.9 Refer to nephrology Chronic low back pain 27 4805819 M54.50 Needs to see pain management , referral provided Renewal of prescription 120307041 Z76.0 Upper resp iratory infection 36685607 J06.9 Get on the augmentin 875mg po bidGet Xray Padma if not better Addendum: 11/22/2023 : Xr chest neg OV 11/01/2024 :Get on augmentin bidAlso get on flonaseER if worse Pruritic rash 62576912 L 28.2 [id number] Quinton taveras MD [facility] Primary Care [place] [address] [place] [address] 11/06/2024 14:00:22 11/06/2024 14:35:20 [id number] Quinton taveras MD [facility] Primary [facility] [place] [address] [place] [address] 04/02/2025 10:48:27 04/02/2025 12:09:57 Screening - NAD 492264713 Z13.9 C-scope: 01/14/2022 : Dr Benitez next in 5 years Mammogram: 06/23/2021 : Negative, not doing these anymore DEXA: 02/03/2024 : Osteoporos is, can do prolia PAP: Not doing d/t age, no complaints noted Get yearly flu shot, get tdap if not doneGet shingrix vaccineUTD on pneumonia vaccines as per her historyCan do COVID 19 vaccine and its boosters RTC in 4 months, must do labs, ER if worse, she did verbalize her understand ing of the above Essential hypertension 60563106 I10 On amlodipine 5mg dailyOn K ER 10meq dailyGet labs Gastroesop hageal reflux disease without esophagitis 481594560 K21.9 On omeprazole 20mg daily, take as needed, renewed 03/01/2024 , will refer to GI for EGD Urinary incontinence 165 603040 R32 On oxybutynin 5mg dailyDoes well Environmental allergy 42 9754195 T78.49XA On albuterol as neededOn singulairO n zyrtec OTCOn flonaseDoe s well Genital he rpes simplex 17575780 A60.9 On valacyclov ir 500mg bid, renewed as per her request 11/22/2023 , 03/01/2024 Generalize d anxiety disorder 19450767 F41.1 On buspirone 10mg bidOn duloxetine 60mg dailyNot suicidal or homicidalS ees her psychiatri st Dr Alejandra Serum sharee min B12 below reference range 913065765 R79.89 Osteoporosis 31628868 M8 1.0 Can do prolia, must do ca and vit d Skin lesion 22783581 L98 .9 Small raised tender swelling noted on the L lateral neck, will refer to Dr Dockery 03/14/2024 : Dr Dockery Asthma 209373868 J45.90 9 Will start on airsupraAl l side effects explained to her Chronic ki dney disease 321354847 N18.9 Refer to nephrology Chronic low back pain 27 3234979 M54.50 Needs to see pain management , referral provided Upper resp iratory infection 78254275 J06.9 Get on the augmentin 875mg po bidGet Xray Padma if not better Addendum: 11/22/2023 : Xr chest neg OV 11/01/2024 :Get on augmentin bidAlso get on flonaseER if worse OV 04/02/2025 :Now on augmentinN otify if not better Pain in le ft lower limb 170452372 M79.605 Get US LLE venous and arterial statMay need to proceed to the ER if worse Acute otitis media 30271 03 H66.90 On augmentinG etting better, has seen ENT will refer again Health Concerns Section Related Observation LastModified by Organization Detai ls LastModified Time None Recorded Concern Status LastModified by Organization Details LastModified Time None Recorded Advance Directives Directive Y: Payers Insurance Date Sequence Insurance Name Policy Number Policy Cash Covered Member ID Cash Member ID Guarantor Name 04/02/2025 2 [place] DEPARTMENT [place] PUBLIC AID Leonora Liz [id number] Leonora Liz 04/02/2025 1 [facility] (MEDICARE REPLACEMENT/AD VANTAGE - HMO) [id number] Leonora Liz [id number] Leonora Liz 04/02/2025 1 [employer] - [employer] (MEDICARE REPLACEMENT/AD VANTAGE - HMO) Leonora Liz [id number] Leonora Liz 04/02/2025 2 [employer] [place] - DOS ON OR AFTER 2020 (MEDICAID REPLACEMENT - HMO) Leonora Liz [id number] Leonora Liz OBGyn Episode No OBEpisode recorded.
--- OUTSIDE RECORDS SUMMARY | 2025-04-02 12:29 | XMS_ITS ---
Author Organization [facility] Address [address] [place] [address] Care Team Providers Care Registered Nurse First Assistant Name Role Phone Quang Evans Unavailable [phone] Encounters Encounter Location Date Provider Diagnosis [facility] [address] [facility] [address] [place] [address] 05/05/2024 Quang Evans Plan Of Treatment No Information Progress Notes * Norberto BRIONESeDOB: 9 (84 yo F)Acc No.[id number]:05/05/2024 Progress Notes Patient: Leonora MARTIN Provider: Sherley CHEEK MD, Kinga.Yvan.C.P, F.A.S.N. :1940 A ge:83 Y S ex:Female Date:05/05/2024 Address:[address] [place] [address] Subjective: * Chief Complaints: * * Medical History: Objective: * Vitals: Assessment: Plan: * Treatment: * Billing Information: * Visit Code: * Procedure Codes: * Electronic signature of Celine Evans MD on 04/02/2025 at 12:29 PM CDT Sign off status: Pending * Provider: Sherley CHEEK MD, Kinga.Yvan.C.P, F.A.S.N. Date: 05/05/2024 Generated for Printing/Faxing/eTransmitting on: 04/02/2025 12:29 PM CDT
--- OUTSIDE RECORDS SUMMARY | 2025-04-02 12:29 | XMS_ITS | Clinical Summary ---
Author Organization [facility] Address [address] [place] [address] Care Team Providers Care Lay Health Advocate Name Role Phone Jason Brynat MD Primary Care Provider [phone] Source Comments [facility],non-owned Affiliates and Associated Physician Practices is amultiple site organization consisting of ambulatory clinics and hospital sitesin [place], [place], [place] and [place]. This disclosure is being madepursuant to the Care Everywhere program and may not contain all information available regarding this patient. Last updated 18.[facility] Allergies No known active allergies Medications * Be aware that medications may not be up to date on this document. Alwaysverify current medications with the patient. montelukast (SINGULAIR) 10 MG tablet Take 10 mg by mouth at bedtime Active valACYclovir (VALTREX) 500 MG tablet Take 500 mg by mouth 2 times daily Active oxybutynin (DITROPAN) 5 MG tablet Take 5 mg by mouth 3 times daily Active Albuterol Sulfate (PROAIR HFA IN) Active DULoxetine (CYMBALTA) 30 MG capsule Take 30 mg by mouth once daily Active ALPRAZolam (XANAX) 1 MG tablet Take 1 mg by mouth 3 times daily as needed for Anxiety Active traZODone (DESYREL) 50 MG tablet Take 50 mg by mouth at bedtime Active Fluticasone Propionate (FLONASE NA) Active FOLIC ACID PO Active methylPREDNISolo ne (MEDROL DOSEPAK) 4 MG tabletIndication s:Acute bronchitis, unspecified organism Take by mouth as directed 1 Each 8 Active nystatin (MYCOSTATIN) powderIndication s:Acute bronchitis, unspecified organism Apply to affected area 2 times daily 1 Each 8 Active Immunizations Immunization Administration Dates Next Due INFLUENZA VACCINE, HIGH-DOSE , QUADR. (FLUZONE HIGH-DOSE QUADRIVALENT; 65Y+), 0.7 ML (HD-IIV4) 06/29/2017 Social History Tobacco Use Types Packs/Day Years Used Date Smoking Tobacco: Former Cigarettes Q uit: 1984 Smokeless Tobacco: Never Comments No Sex and Gender Information Value Date Recorded Sex Assigned at Not on file Legal Sex Female 4:13 AM ZOOGLER Gender Identity Not on file Sexual Orientation Not on file Last Filed Vital Signs Vital Sign Reading Time Taken Comments Blood Pressure 124/64 05/08/2018 3:43 PM CDT Pulse 60 05/08/2018 3:43 PM CDT Temperature 36.6 C (97.9 F) 05/08/2018 3:43 PM CDT Respiratory Rate 18 05/08/2018 3:43 PM CDT Oxygen Saturation 97% 05/08/2018 3:43 PM CDT Inhaled Oxygen Concentration - - Weight 68 kg (150 lb) 05/08/2018 3:43 PM CDT Height 152.4 cm (5') 05/08/2018 3:43 PM CDT Body Mass Index 29.29 05/08/2018 3:43 PM CDT Plan of Treatment Health Maintenance Due Date Last Done Comments BONE DENSITY TESTING 1940 DTAP/TDAP/TD VACCINES (1 - Tdap) 1958 PNEUMOCOCCAL VACCINE 50+ (1 of 1 - PCV) 1989 ZOSTER VACCINE (1 of 2) 1989 Respiratory Syncytial Virus (RSV) Vaccine Pt: or over 60 yrs (1 - 1-dose 75+ series) 2014 COVID-19 VACCINE ( - 2023-2 5 season) 2024 DEPRESSION SCREENING 09/06/2024 INFLUENZA VACCINE (#1) 2025 06/29/2017 HEPATITIS B VACCINE Aged Out No longe r eligible based on patient's age to complete this topic HIB VACCINE Aged Out No longer eligi ble based on patient's age to complete this topic HPV VACCINE Aged Out No longer eligi ble based on patient's age to complete this topic MENINGOCOCCAL (Group B) VACC INE SHARED DECISION-MAKING Aged Out No longer eligibl e based on patient's age to complete this topic MENINGOCOCCAL GROUPS A/C/Y/W VACCINE Aged Out No longer eligible b ased on patient's age to complete this topic Insurance MEDICARE MEDICARE Care Teams Lay Health Advocate Relationship Specialty Start Date End Date Jason Bryant MD PCP - General Internal Medicine 06/29/17
--- OUTSIDE RECORDS SUMMARY | 2025-04-02 12:29 | XMS_ITS | Encounter Summary ---
Author Organization [facility] Address [address] [place] [address] Care Team Providers Care Stockkeeper Name Role Phone Not Found, Stl Primary Care Provider Unavailabl e Encounter Details Date Type Department Care Team (Late st Contact Info) Description 11/10/2007 Outpatient Historical [facility] Jason Horan MD [address] [place] [address] Abdominal Pain, Epigastric; Esophageal Reflux; Dyspepsia and Other Specified Disorders of Function of Stomach; Atrophic Gastritis without Mention of Hemorrhage; Unspecified Esophagitis; Intestinal Bypass or Anastomosis Status; Unspecified Asthma; Personal History of Peptic Ulcer Disease; Anxiety State, Unspecified Social History Tobacco Use Types Packs/Day Years Used Date Smoking Tobacco: Never Assessed Comments Unknown Sex and Gender Information Value Date Recorded Sex Assigned at Not on file Legal Sex Female 2:58 AM LITIGATION DOCKET MANAGER Gender Identity Not on file Sexual Orientation Not on file documented as of this encounter Plan of Treatment Not on file documented as of this encounter Procedures Procedure Name Priority Date/Time Associated Diagnosis Comments PATHOLOGY Routine 11/10/2007 10:29 AM LITIGATION DOCKET MANAGER documented in this encounter Results * PATHOLOGY (11/10/2007 10:29 AM LITIGATION DOCKET MANAGER) FINAL REPORT [address] [address] Patient: LEONORA LIZ : 1940 Procedure Date: 11/10/2007 Accession Date: 11/10/2007 Case No: [id number] Ordering Dr: JASON HORAN Case types AW, BW, FW, NW and SH are performed by [facility], [place], [place] SURGICAL PATHOLOGY & NON-GYNECOLOGIC CYTOPATHOLOGY REPORT DIAGNOSIS STOMACH, BIOPSY: - MILD CHRONIC INFLAMMATION. Specimen Description: Gastric biopsy. Operative Procedure: EGD. Patient Information/Histor y/Diagnosis: +/- gastritis. Antral biopsies. Is H. pylori present? Gross: Received in one container labeled Leonora Liz, gastric is one madrid tissue fragment, 0.3 cm in greatest dimension, which is submitted in block A1. [facility] 11.10.2007 12:12 pm Microscopic: The slides are labeled [id number] and Leonora Liz. The biopsy consists of gastric body mucosa showing mild chronic inflammation primarily in the basal lamina propria. There is no evidence of mucosal alteration, intestinal metaplasia, atrophy, or malignancy. Organisms morphologically consistent with Helicobacter pylori are not identified on the routine H&E-stained sections. /[facility] 11.11.2007 02:33 pm Staging Form: No. ELECTRONIC SIGNATURE FOR POLO PETERSON M.D.- 11/11/07 03:49 pm INTERFACE SYSTEM 11/10/2007 10:2 9 AM LITIGATION DOCKET MANAGER Jason Horan MD PATHOLOGY/CYTOLOGY RAFAEL LEIJA Final Result INTERFACE SYSTEM Refer to clinic/hospital department documented in this encounter Visit Diagnoses Diagnosis Abdominal pain, epigastric Esophageal reflux Dyspepsia and other specified disorders of function of stomach Atrophic gastritis without mention of hemorrhage Esophagitis, unspecified Intestinal bypass or anastomosis status Unspecified asthma(493.90) Unspecified asthma Personal history of peptic ulcer disease Anxiety state, unspecified documented in this encounter Care Teams Stockkeeper Relationship Specialty Start Date End Date Not Found, Stl NO ADDRESS ON FILE PCP - General 05/09/15 documented as of this encounter
--- OUTSIDE RECORDS SUMMARY | 2025-04-02 12:29 | XMS_ITS | Encounter Summary ---
Author Organization [facility] Address [address] [place] [address] Care Team Providers Care Medical Claims Assistant Name Role Phone Not Found, Stl Primary Care Provider Unavailabl e Encounter Details Date Type Department Care Team (Latest Contact Info) Description 02/24/2008 Outpatient Historical [facility] CARDIOPULMONARY Cj, MD Bryn [address] [place] [address] Swelling of Limb Social History Tobacco Use Types Packs/Day Years Used Date Smoking Tobacco: Never Assessed Comments Unknown Sex and Gender Information Value Date Recorded Sex Assigned at Not on file Legal Sex Female 2:58 AM ENROLLMENT MANAGEMENT MANAGER Gender Identity Not on file Sexual Orientation Not on file documented as of this encounter Plan of Treatment Not on file documented as of this encounter Procedures Procedure Name Priority Date/Time Associated Diagnosis Comments US DUPLEX ARTERIAL LEGS BILATERAL Routine 02/24/2008 6:17 PM CDT documented in this encounter Results * US DOPPLER ARTERIAL LEGS BILATERAL (02/24/2008 6:17 PM CDT) Anatomical Region Laterality Modality Lower Extremity Other Narrative 02/24/2008 6:17 PM CDT Please type in written order in Special Instructions field. [facility] [address] [place] [address] [email or web address] Patient: Leonora Briones Study ID: [id number] Gender: F : 1940 Age: 67 years Race: 1 Room: Bed: Height: Study Date: February 24, 2008 Patient status: Outpatient Weight: Access. #: [id number] POC: Reservoir Engineering Consultant: Van Ordering: Bernardo Attending MD: Bernardo Admitting MD: Bernardo SUMMARY: There was no evidence of deep vein thrombosis of the right lower extremity veins. COMPARISONS No previous study is available for comparison. HISTORY AND INDICATIONS: INDICATIONS: Right lower extremity swelling. RIGHT DUPLEX DATA Common femoral Patency/occlusion: Patent Flow pattern: Phasic Competence test: Competent B-mode compressibility: Normal Augmentation: Present Comments: no evidence of echogenic material Superficial femoral Patency/occlusion: Patent Flow pattern: Phasic Competence test: Competent B-mode compressibility: Normal Augmentation: Present Comments: no evidence of echogenic material Popliteal Patency/occlusion: Patent Flow pattern: Phasic Competence test: Competent B-mode compressibility: Normal Augmentation: Present Comments: no evidence of echogenic material Peroneal Patency/occlusion: Patent Flow pattern: -- Competence test: -- B-mode compressibility: Normal Augmentation: -- Comments: no evidence of echogenic material Posterior tibial Patency/occlusion: Patent Flow pattern: -- Competence test: -- B-mode compressibility: Normal Augmentation: -- Comments: no evidence of echogenic material There was no evidence of deep vein thrombosis of the right lower extremity veins. Prepared and Electronically Authenticated Geovany Early MD Confirmed February 24, 2008 16:02:12 Procedure Note Provider, Historical - 02/24/2008 Please type in written order in Special Instructions field. [place] [address] [place] [address] [email or web address] Patient: Leonora Briones Study ID: [id number] Gender: F : 1940 Age: 67 years Race: 1 Room: Bed: Height: Study Date: February 24, 2008 Patient status: Outpatient Weight: Access. #: [id number] POC: Reservoir Engineering Consultant: Van Ordering: Bernardo Attending MD: Bernardo Matos MD: Bernardo SUMMARY: There was no evidence of deep vein thrombosis of the right lowerextremity veins. COMPARISONS No previous study is available for comparison. HISTORY AND INDICATIONS: INDICATIONS: Right lower extremity swelling. RIGHT DUPLEX DATA Common femoral Patency/occlusion: Patent Flow pattern: Phasic Competence test: Competent B-mode compressibility: Normal Augmentation: Present Comments: no evidence of echogenic material Superficial femoral Patency/occlusion: Patent Flow pattern: Phasic Competence test: Competent B-mode compressibility: Normal Augmentation: Present Comments: no evidence of echogenic material Popliteal Patency/occlusion: Patent Flow pattern: Phasic Competence test: Competent B-mode compressibility: Normal Augmentation: Present Comments: no evidence of echogenic material Peroneal Patency/occlusion: Patent Flow pattern: -- Competence test: -- B-mode compressibility: Normal Augmentation: -- Comments: no evidence of echogenic material Posterior tibial Patency/occlusion: Patent Flow pattern: -- Competence test: -- B-mode compressibility: Normal Augmentation: -- Comments: no evidence of echogenic material There was no evidence of deep vein thrombosis of the right lowerextremity veins. Prepared and Electronically Authenticated Geovany Early MD Confirmed February 24, 2008 16:02:12 Bryn Corona MD US ORDERABLES Final Result documented in this encounter Visit Diagnoses Diagnosis Swelling of limb documented in this encounter Care Teams Medical Claims Assistant Relationship Specialty Start Date End Date Not Found, Stl NO ADDRESS ON FILE PCP - General 05/09/15 documented as of this encounter
--- OUTSIDE RECORDS SUMMARY | 2025-04-02 12:29 | XMS_ITS | Encounter Summary ---
Author Organization [facility] Address [address] [place] [address] Care Team Providers Care Manager Agriculture Name Role Phone Not Found, Stl Primary Care Provider Unavailabl e Encounter Details Date Type Department Care Team (Latest Contact Info) Description 11/26/2008 Outpatient Historical [facility], [address] Jason Blanco MD [address] [place] [address] Dermatophytosis of Foot Social History Tobacco Use Types Packs/Day Years Used Date Smoking Tobacco: Never Assessed Comments No Sex and Gender Information Value Date Recorded Sex Assigned at Not on file Legal Sex Female 2:58 AM EXCAVATING CONTRACTOR Gender Identity Not on file Sexual Orientation Not on file documented as of this encounter Plan of Treatment Not on file documented as of this encounter Procedures Procedure Name Priority Date/Time Associated Diagnosis Comments ALEX PREP (SKIN, HAIR, NAILS) Routine 11/26/2008 8:24 PM CDT FUNGUS CULTURE, SKIN HAIR OR NAIL Routine 11/26/2008 7:53 PM CDT documented in this encounter Results * ALEX PREP (SKIN, HAIR, NAILS) (11/26/2008 8:24 PM CDT) FINAL REPORT No mycotic elements seen [facility] ENTIRE FOOT / Unknown 11/26/2008 8:24 PM CDT 11/26/2008 8:24 PM CDT us Jason Blanco MD MICROBIOLOGY - GENERAL ORD ERABLES Final Result Performing Organization Address [facility] de Phone Number INTERFACE SYSTEM Refer to clinic/hospital department [facility] CLIA# [id number] [address] [place] [address] * FUNGUS CULTURE, SKIN HAIR OR NAIL (11/26/2008 7:53 PM CDT) PRELIMINARY REPORT No fungus isolated after 3 days. Culture will be held for 4 weeks. [facility] FINAL REPORT No fungus isolated after 4 weeks. [facility] 11/26/2008 7:53 PM CDT 11/26/2008 8:23 PM CDT Jason Blanco MD MICROBIOLOGY - GENERAL ORD ERABLES Final Result Performing Organization Address [facility] de Phone Number INTERFACE SYSTEM Refer to clinic/hospital department [facility] CLIA# [id number] [address] [place] [address] documented in this encounter Visit Diagnoses Diagnosis Dermatophytosis of foot documented in this encounter Care Teams Manager Agriculture Relationship Specialty Start Date End Date Not Found, Stl NO ADDRESS ON FILE PCP - General 05/09/15 documented as of this encounter
--- OUTSIDE RECORDS SUMMARY | 2025-04-02 12:29 | XMS_ITS | Encounter Summary ---
Author Organization [facility] Address [address] [place] [address] Care Team Providers Care Monument Erector Name Role Phone Not Found, Stl Primary Care Provider Unavailabl e Encounter Details Date Type Department Care Team (Late st Contact Info) Description 10/29/2008 Outpatient Historical [facility] [place] [address] [place], [place] [id number] Social History Tobacco Use Types Packs/Day Years Used Date Smoking Tobacco: Never Assessed Comments No Sex and Gender Information Value Date Recorded Sex Assigned at Not on file Legal Sex Female 2:58 AM CLINICAL FACULTY Gender Identity Not on file Sexual Orientation Not on file documented as of this encounter Plan of Treatment Not on file documented as of this encounter Procedures Procedure Name Priority Date/Time Associated Diagnosis Comments HEMOGLOBIN AND HEMATOCRIT Routine 10/31/2008 1:30 PM CLINICAL FACULTY BASIC METABOLIC PANEL Routine 10/31/2008 1:30 PM CLINICAL FACULTY documented in this encounter Results * (ABNORMAL) BASIC METABOLIC PANEL (10/31/2008 1:30 PM CLINICAL FACULTY) CHLORIDE 105 96 - 108 mmol/L [facility] GLUCOSE 79 65 - 99 mg/dL [facility] SODIUM 138 135 - 145 mmol/L [facility] CALCIUM 8.8 8.6 - 10.2 mg/dL [facility] CO2 24 22 - 30 mmol/L [facility] CREATININE 0.97(H) 0.51 - 0.95 mg/dL [facility] POTASSIUM 3.9 3.5 - 4.9 mmol/L [facility] BUN 21(H) 6 - 20 mg/dL [facility] GFR, >60 >=60 mL/min/1. 7 sq meter [facility] GFR 57(L) >=60 mL/min/1. 7 sq meter [facility] Comment: Modification of Diet in Renal Disease (MDRD) study formula. Estimated GFR rate interpretative information for both Americans and non- Americans is available on the [facility] Intranet at: [email or web address] Select: Lab Policies and Procedures Select: Reference Ranges - GFR Blood specimen (specimen) 10/31/2008 1:30 PM CLINICAL FACULTY 10/31/2008 2:58 PM CLINICAL FACULTY us Shoaib Jennings MD CHEMISTRY ORDERABLES Edited Performing Organization Address City/[facility] Co de Phone Number INTERFACE SYSTEM Refer to clinic/hospital department [facility] CLIA# [id number] [address] [facility] [place] [address] * HEMOGLOBIN AND HEMATOCRIT (10/31/2008 1:30 PM CLINICAL FACULTY) HEMOGLOBIN 13.2 11.8 - 14.8 g/dL [facility] HEMATOCRIT 39.6 35.5 - 44.0 % [facility] Blood specimen (specimen) 10/31/2008 1:30 PM CLINICAL FACULTY 10/31/2008 2:58 PM CLINICAL FACULTY us Shoaib Jennings MD HEMATOLOGY ORDERABLES Final Re sult Performing Organization Address [facility] Co de Phone Number INTERFACE SYSTEM Refer to clinic/hospital department [facility] CLIA# [id number] [address] [place], [place] [address] documented in this encounter Visit Diagnoses Not on filedocumented in this encounter Care Teams Monument Erector Relationship Specialty Start Date End Date Not Found, Stl NO ADDRESS ON FILE PCP - General 05/09/15 documented as of this encounter
--- OUTSIDE RECORDS SUMMARY | 2025-04-02 12:29 | XMS_ITS | Encounter Summary ---
Author Organization [facility] Address [address] [place] [address] Care Team Providers Care Residential Director Name Role Phone Not Found, Stl Primary Care Provider Unavailabl e Encounter Details Date Type Department Care Team (Latest Contact Info) Description 12/08/2007 Outpatient Historical HIS [facility] Bryn Cheng MD [address] [place] [address] Unspecified Asthma Social History Tobacco Use Types Packs/Day Years Used Date Smoking Tobacco: Never Assessed Comments Unknown Sex and Gender Information Value Date Recorded Sex Assigned at Not on file Legal Sex Female 2:58 AM RADIOLOGIC ELECTRONIC SPECIALIST Gender Identity Not on file Sexual Orientation Not on file documented as of this encounter Plan of Treatment Not on file documented as of this encounter Procedures Procedure Name Priority Date/Time Associated Diagnosis Comments XR CHEST PA AND LATERAL 2 VW Routine 12/08/2007 1:52 PM CDT documented in this encounter Results * XR CHEST PA AND LATERAL (12/08/2007 1:52 PM CDT) Anatomical Region Laterality Modality Chest Other 12/08/2007 1:52 PM CDT Narrative 12/08/2007 4:56 PM CDT [facility] [address] [place], [place] [address] Admit Date: 12/08/2007 LEONORA LIZ Sex: F Admit Prov: BRYN CORONA Date: 1940 Primary Care Prov: BRYN CORONA CMRN: [id number] [id number] Ordering Prov: N/A Accession Number: [id number] Interpretation CHEST 2 VIEWS, 12/08/2007 History: Asthma. Examination of the chest show the lungs to be well expanded and clear. There is no infiltrate, effusion or congestion. Heart size is normal and the aorta is atherosclerotic. Bony structures are intact. Impression: No active disease. . Dictated by: ANTHONY CREWS 12/08/2007 14:15 Electronically signed by: ANTHONY CREWS 12/08/2007 16:56 Transcribed: 12/08/2007 14:20 SMM Procedure Note Provider, Historical - 12/08/2007 [id number] [place], [place] [address] Admit Date: 12/08/2007 LEONORA LIZ Sex: F Admit Prov: BRYN CORONA Date:1940 Primary Care Prov: BRYN CORONA CMRN: [id number] [id number] [facility] Ordering Prov: N/A Interpretation CHEST 2 VIEWS, 12/08/2007 History: Asthma. Examination of the chest show the lungs to be well expanded andclear. There is no infiltrate, effusion or congestion. Heart size is normaland the aorta is atherosclerotic. Bony structures are intact. Impression: No active disease. . Dictated by: ANTHONY CREWS 12/08/2007 14:15 Electronically signed by: ANTHONY CREWS 12/08/2007 16:56 Transcribed: 12/08/2007 14:20 SMM Bryn Corona MD DIAGNOSTIC IMAGING ORDERABLES Fi nal Result documented in this encounter Visit Diagnoses Diagnosis Unspecified asthma(493.90) Unspecified asthma documented in this encounter Care Teams Residential Director Relationship Specialty Start Date End Date Not Found, Stl NO ADDRESS ON FILE PCP - General 05/09/15 documented as of this encounter
--- OUTSIDE RECORDS SUMMARY | 2025-04-02 12:29 | XMS_ITS | Encounter Summary ---
Author Organization [facility] Address [address] [place] [address] Care Team Providers Care Art Psychotherapist Or Therapist Name Role Phone Not Found, Stl Primary Care Provider Unavailabl e Encounter Details Date Type Department Care Team (Late st Contact Info) Description 05/03/2009 Outpatient Historical HIS [facility] GISELL Corona, MD Bryn [address] [place], [place] [id number] Acute Bronchitis Social History Tobacco Use Types Packs/Day Years Used Date Smoking Tobacco: Never Alcohol Use Standard Drinks/Week Comments No 0 (1 standard drink = 0.6 oz pur e alcohol) Comments No Sex and Gender Information Value Date Recorded Sex Assigned at Not on file Legal Sex Female 2:58 AM COL[employer] PRECASTER Gender Identity Not on file Sexual Orientation Not on file documented as of this encounter Plan of Treatment Not on file documented as of this encounter Visit Diagnoses Diagnosis Acute bronchitis documented in this encounter Care Teams Art Psychotherapist Or Therapist Relationship Specialty Start Date End Date Not Found, Stl NO ADDRESS ON FILE PCP - General 05/09/15 documented as of this encounter
--- OUTSIDE RECORDS SUMMARY | 2025-04-02 12:29 | XMS_ITS | Patient Health Record ---
Author Organization [facility] Address [address] [address] Care Team Providers Care Human Anatomy Teacher Name Role Phone Quang Evans Unavailable [phone] Reason For Referral No Information Plan Of Treatment No Information
--- OUTSIDE RECORDS SUMMARY | 2025-04-02 12:29 | XMS_ITS | Encounter Summary ---
Author Organization [facility] Address [address] [place] [address] Care Team Providers Care Retinal Surgeon Name Role Phone Not Found, Stl Primary Care Provider Unavailabl e Encounter Details Date Type Department Care Team (Late st Contact Info) Description 10/12/2008 Outpatient Historical [facility] Jason Gutierrez MD NO ADDRESS ON FILE Social History Tobacco Use Types Packs/Day Years Used Date Smoking Tobacco: Never Assessed Comments No Sex and Gender Information Value Date Recorded Sex Assigned at Not on file Legal Sex Female 2:58 AM RADIOLOGY TECHNICIAN Gender Identity Not on file Sexual Orientation Not on file documented as of this encounter Plan of Treatment Not on file documented as of this encounter Procedures Procedure Name Priority Date/Time Associated Diagnosis Comments NM LUNG VENT PERF Timed Study 10/12/2008 1:5 9 PM RADIOLOGY TECHNICIAN documented in this encounter Results * NM LUNG VENT PERF (10/12/2008 1:59 PM RADIOLOGY TECHNICIAN) Anatomical Region Laterality Modality Chest Other 10/12/2008 1:59 PM RADIOLOGY TECHNICIAN Narrative 10/12/2008 2:01 PM RADIOLOGY TECHNICIAN [facility] [address], [place] [address] Admit Date: 10/12/2008 LEONORA LIZ Sex: F Admit Prov: JASON GUTIERREZ Date: 1940 Primary Care Prov: MEGA QUINTANA CMRN: [id number] [facility]: [id number] IM[facility]ING SERVICES Ordering Prov: N/A Accession Number: [id number] Interpretation Ventilation/perfusion Lung Scan History: 68-year-old with dyspnea. Findings: There is normal ventilation and perfusion to both lungs. Chest x- ray of 12 October 2008 shows clear lung hickman. Impression: There is prompt infusion of the gas and both lungs. There is slight truncation of the left lung base. Otherwise there is normal ventilation pattern. No significant air trapping is noted on the ventilation. Perfusion also appears nearly normal. Distribution at the left lung base. There no segmental or subsegmental defects to suggest pulmonary embolization. Perfusion pattern is nearly normal. Impression: This study is felt to rule out P.E. No significant ventilatory abnormality is noted. Dose 16 mCi Xe-133 gas. Perfusion 4.3 mCi technetium MAA . Dictated by: ANTHONY COLÓN 10/12/2008 13:46 Electronically signed by: ANTHONY COLÓN 10/12/2008 13:55 Procedure Note Anthony Colón MD - 10/12/2008 [facility] [address] [place], [place] [address] Admit Date: 10/12/2008 LEONORA LIZ Sex: F Admit Prov: JASON GUTIERREZ Date:1940 Primary Care Prov: MEGA QUINTANA CMRN: [id number] Room: [facility] SSN: [address] [place] [address] IMAGING SERVICES Ordering Prov: N/A Interpretation Ventilation/perfusion Lung Scan History: 68-year-old with dyspnea. Findings: There is normal ventilation and perfusion to both lungs.Chest x- ray of 12 October 2008 shows clear lung hickman. Impression: There is prompt infusion of the gas and both lungs. Thereis slight truncation of the left lung base. Otherwise there is normal ventilation pattern. No significant air trapping is noted on the ventilation. Perfusion also appears nearly normal. Distribution atthe left lung base. There no segmental or subsegmental defects to suggestpulmonary embolization. Perfusion pattern is nearly normal. Impression: This study is felt to rule out P.E. No significant ventilatory abnormality is noted. Dose 16 mCi Xe-133 gas. Perfusion 4.3 mCi technetium MAA . Dictated by: ANTHONY COLÓN 10/12/2008 13:46 Electronically signed by: ANTHONY COLÓN 10/12/2008 13:55 us Jason Gutierrez MD NM ORDERABLES Final Resu lt documented in this encounter Visit Diagnoses Not on filedocumented in this encounter Care Teams Retinal Surgeon Relationship Specialty Start Date End Date Not Found, Stl NO ADDRESS ON FILE PCP - General 05/09/15 documented as of this encounter
--- OUTSIDE RECORDS SUMMARY | 2025-04-02 12:29 | XMS_ITS | Encounter Summary ---
Author Organization [facility] Address [address] [place] [address] Care Team Providers Care Steam Engineer Name Role Phone Not Found, Stl Primary Care Provider Unavailabl e Encounter Details Date Type Department Care Team (Latest Contact Info) Description 05/23/2008 Outpatient Historical [facility] Bryn Cheng MD [address] [place] [address] Other Screening Mammogram Social History Tobacco Use Types Packs/Day Years Used Date Smoking Tobacco: Never Assessed Comments No Sex and Gender Information Value Date Recorded Sex Assigned at Not on file Legal Sex Female 2:58 AM LIFT TEAM TECHNICIAN Gender Identity Not on file Sexual Orientation Not on file documented as of this encounter Plan of Treatment Not on file documented as of this encounter Procedures Procedure Name Priority Date/Time Associated Diagnosis Comments MAMMO SCREEN BILAT W OR WO CAD Routine 05/23/2008 2:00 PM CDT documented in this encounter Results * MAMMO DIGITAL SCREEN BILAT (05/23/2008 2:00 PM CDT) Anatomical Region Laterality Modality Breast Bilateral Other 05/23/2008 2:00 PM CDT Narrative 05/28/2008 1:18 PM CDT [facility] [address] [place], [place] [address] Admit Date: 05/23/2008 LEONORA LIZ Sex: F Admit Prov: BRYN CORONA Date: 1940 Primary Care Prov: BRYN CORONA CMRN: [id number] Room: [facility] SSN: [address] [place] [address] IMAGING SERVICES Ordering Prov: BRYN CORONA Accession Number: [id number] Interpretation DIGITAL SCREENING MAMMOGRAM WITH COMPUTER-ASSISTED DIAGNOSIS Findings: The breasts were imaged with digital mammographic technique. There are scattered fibroglandular densities. No significant mass, malignant calcification or architectural distortion is noted. The CAD system does not highlight any suspicious areas. Summary: No mammographic evidence of malignancy. There has been no significant change from prior study of 02/10. Recommendations: Bilateral yearly screening mammogram is recommended. Assessment BIRADS: 1-Negative Recommendation: Normal interval follow-up Dictated by: CLAUDIA MCGEE Electronically signed by: CLAUDIA MCGEE 05/28/2008 13:18 Transcribed: 05/28/2008 13:18 CXZ Procedure Note Claudia Mcgee - 05/28/[address] [address] Admit Date: 05/23/2008 SHALONDALEONORA Sex: F Admit Prov: BRYN CORONA Date:1940 Primary Care Prov: BRYN CORONA CMRN: [id number] Room: [facility] N: [address] [place] [address] IMAGING SERVICES Ordering Prov: BRYN CORONA Interpretation DIGITAL SCREENING MAMMOGRAM WITH COMPUTER-ASSISTED DIAGNOSIS Findings: The breasts were imaged with digital mammographictechnique. There are scattered fibroglandular densities. No significant mass, malignant calcification or architectural distortion is noted. The CAD system does not highlight any suspicious areas. Summary: No mammographic evidence of malignancy. There has been no significant change from prior study of 02/10. Recommendations: Bilateral yearly screening mammogram is recommended. Assessment BIRADS: 1-Negative Recommendation: Normal interval follow-up Dictated by: CLAUDIA MCGEE Electronically signed by: CLAUDIA MCGEE 05/28/2008 13:18 Transcribed: 05/28/2008 13:18 CXZ Bryn Corona MD MAMMO ORDERABLES Final Result documented in this encounter Visit Diagnoses Diagnosis Other screening mammogram documented in this encounter Care Teams Steam Engineer Relationship Specialty Start Date End Date Not Found, Stl NO ADDRESS ON FILE PCP - General 05/09/15 documented as of this encounter
--- OUTSIDE RECORDS SUMMARY | 2025-04-02 12:29 | XMS_ITS | Encounter Summary ---
Author Organization [facility] Address [address] [place] [address] Care Team Providers Care Oyster Cultivator Name Role Phone Not Found, Stl Primary Care Provider Unavailabl e Encounter Details Date Type Department Care Team (Late st Contact Info) Description 10/15/2008 Outpatient [facility] [address] [place] [address] [place] [address] [place], [place] [id number] Social History Tobacco Use Types Packs/Day Years Used Date Smoking Tobacco: Never Assessed Comments No Sex and Gender Information Value Date Recorded Sex Assigned at Not on file Legal Sex Female 2:58 AM NURSE TRANSITIONAL Gender Identity Not on file Sexual Orientation Not on file documented as of this encounter Plan of Treatment Not on file documented as of this encounter Procedures Procedure Name Priority Date/Time Associated Diagnosis Comments MRI LUMBAR WO CONTRAST Routine 10/15/2008 2:06 PM NURSE TRANSITIONAL MRI KNEE WO CONTRAST RIGHT Routine 10/15/2008 1:44 PM NURSE TRANSITIONAL documented in this encounter Results * MRI LUMBAR WO CONTRAST (10/15/2008 2:06 PM NURSE TRANSITIONAL) Anatomical Region Laterality Modality Spine Other 10/15/2008 2:06 PM NURSE TRANSITIONAL Narrative 10/15/2008 3:36 PM NURSE TRANSITIONAL [address] [address] Admit Date: 10/15/2008 LEONOAR LIZ Sex: F Admit Prov: MAX JENNINGS Date: 1940 Primary Care Prov: MEGA QUINTANA CMRN: [id number] [facility] [address] [place] [address] IMAGING SERVICES Ordering Prov: N/A Accession Number: [id number] Interpretation MRI OF THE LUMBAR SPINE WITHOUT CONTRAST, 10/15/08 History: Low back pain greater on the left, worsened since July 2008 Comparison: None Lumbar sequences performed demonstrate normal signal of the included distal spinal cord. There are minor disc bulges at T9-T10 and on the left at T12- L1. The conus ends at L1-L2. L2-L3: There is minimal disc bulging/protrusion causing mild or effacement of the ventral thecal sac but no canal stenosis or neural foraminal narrowing. L3-L4: There is no thecal sac or nerve root compromise. L4-L5: There is prominent disc space narrowing, circumferential disc protrusion, and endplate irregularity. There is shelflike disc and spur in the left lateral recess, foramen and laterally. There are milder changes on the right. There is mild to moderate left neural foraminal narrowing. L5-S1: There is a right foraminal disc protrusion contacting the exiting right L5 nerve root. There is no midline canal stenosis or left neural foraminal compromise. A hypoplastic S1-2 disc space is seen. Impression: No canal stenosis. Degenerative changes as above. . Dictated by: NAKIA JOHNSTON 10/15/2008 14:43 Electronically signed by: NAKIA JOHNSTON 10/15/2008 15:34 Transcribed: 10/15/2008 15:04 AMK Procedure Note Nakia Johnston - 10/15/2008 [facility] [address] [place], [place] [address] Admit Date: 10/15/2008 LEONORA LIZ Sex: F Admit Prov: MAX JENNINGS Date:1940 Primary Care Prov: MEGA QUINTANA CMRN: [id number] Room: [facility] SSN: [id number] IMAGING SERVICES Ordering Prov: N/A Interpretation MRI OF THE LUMBAR SPINE WITHOUT CONTRAST, 10/15/08 History: Low back pain greater on the left, worsened since July2008 Comparison: None Lumbar sequences performed demonstrate normal signal of the includeddistal spinal cord. There are minor disc bulges at T9-T10 and on the left atT12- L1. The conus ends at L1-L2. L2-L3: There is minimal disc bulging/protrusion causing mild oreffacement of the ventral thecal sac but no canal stenosis or neural foraminal narrowing. L3-L4: There is no thecal sac or nerve root compromise. L4-L5: There is prominent disc space narrowing, circumferentialdisc protrusion, and endplate irregularity. There is shelflike disc andspur in the left lateral recess, foramen and laterally. There are milderchanges on the right. There is mild to moderate left neural foraminalnarrowing. L5-S1: There is a right foraminal disc protrusion contacting theexiting right L5 nerve root. There is no midline canal stenosis or leftneural foraminal compromise. A hypoplastic S1-2 disc space is seen. Impression: No canal stenosis. Degenerative changes as above. . Dictated by: NAKIA JOHNSTON 10/15/2008 14:43 Electronically signed by: NAKIA JOHNSTON 10/15/2008 15:34 Transcribed: 10/15/2008 15:04 AMK us Max Jennings MD MR ORDERABLES Final Result * MRI KNEE WO CONTRAST RIGHT (10/15/2008 1:44 PM NURSE TRANSITIONAL) Anatomical Region Laterality Modality Lower Extremity Other 10/15/2008 1:44 PM NURSE TRANSITIONAL Narrative 10/16/2008 7:47 AM NURSE TRANSITIONAL [place] [address] [place], [place] [address] Admit Date: 10/15/2008 LEONORA LIZ Sex: F Admit Prov: MAX JENNINGS Date: 1940 Primary Care Prov: MEGA QUINTANA CMRN: [id number] [facility] [address] [place] [address] IMAGING SERVICES Ordering Prov: N/A Accession Number: [id number] Interpretation EXAM: MRI OF THE RIGHT KNEE 10/15/2008 Indication: Knee pain. Technique: Coronal T1 and PD fat-sat. Sagittal PD and T2 fat-sat. Axial PD fat-sat. Findings: There is a tear of the medial meniscus involving mostly the body but extending towards the posterior horn. The dominant tear is in a horizontal plane and extends to the inferior surface of the meniscus. There is a 4 mm parameniscal cyst adjacent to the body of the meniscus. The lateral meniscus is intact. The ACL, PCL, collateral ligaments and extensor mechanism appear normal. There is focal marrow edema in the medial aspect of the patella at the patellar retinaculum attachment. A linear fracture is not seen. There is no abnormality of the retinaculum. There is otherwise no evidence of marrow edema or contusion of the tibia or fibula. There is mild thinning of the articular cartilage, mostly of the medial compartment. There is no osteochondral defect. There is no joint effusion. There is no periarticular cyst. Impression: Complex tear of the body and posterior horn of the medial meniscus as described. Marrow edema in the medial aspect of the patella from uncertain etiology. No linear fracture is identified. . Dictated by: CHICA HERNDON 10/15/2008 15:06 Electronically signed by: CHICA HERNDON 10/16/2008 07:45 Transcribed: 10/15/2008 20:13 SJ Procedure Note Chica Herndon - 10/16/2008 [facility] [address] [place], [place] [address] Admit Date: 10/15/2008 LEONORA LIZ Sex: F Admit Prov: MAX JENNINGS Date:1940 Primary Care Prov: MEGA QUINTANA CMRN: [id number] Room: [facility] SSN: [address] [place] [address] IMAGING SERVICES Ordering Prov: N/A Interpretation EXAM: MRI OF THE RIGHT KNEE 10/15/2008 Indication: Knee pain. Technique: Coronal T1 and PD fat-sat. Sagittal PD and T2 fat-sat.Axial PD fat-sat. Findings: There is a tear of the medial meniscus involving mostlythe body but extending towards the posterior horn. The dominant tear is in a horizontal plane and extends to the inferior surface of the meniscus.There is a 4 mm parameniscal cyst adjacent to the body of the meniscus.The lateral meniscus is intact. The ACL, PCL, collateral ligaments andextensor mechanism appear normal. There is focal marrow edema in the medialaspect of the patella at the patellar retinaculum attachment. A linearfracture is not seen. There is no abnormality of the retinaculum. There isotherwise no evidence of marrow edema or contusion of the tibia or fibula. Thereis mild thinning of the articular cartilage, mostly of the medialcompartment. There is no osteochondral defect. There is no joint effusion. Thereis no periarticular cyst. Impression: Complex tear of the body and posterior horn of the medial meniscusas described. Marrow edema in the medial aspect of the patella from uncertainetiology. No linear fracture is identified. . Dictated by: CHICA HERNDON 10/15/2008 15:06 Electronically signed by: CHICA HERNDON 10/16/2008 07:45 Transcribed: 10/15/2008 20:13 SJ Max Jennings MD MR ORDERABLES Final Result documented in this encounter Visit Diagnoses Not on filedocumented in this encounter Care Teams Oyster Cultivator Relationship Specialty Start Date End Date Not Found, Stl NO ADDRESS ON FILE PCP - General 05/09/15 documented as of this encounter
--- OUTSIDE RECORDS SUMMARY | 2025-04-02 12:29 | XMS_ITS | Encounter Summary ---
Author Organization [facility] Address [address] [place] [address] Care Team Providers Care Radioactive Waste Disposal Dispatcher Name Role Phone Not Found, Stl Primary Care Provider Unavailabl e Encounter Details Date Type Department Care Team (Latest Contact Info) Description 10/12/2008 Outpatient Historical HIS [facility] Jason Neumann MD NO ADDRESS ON FILE Shortness of Breath Social History Tobacco Use Types Packs/Day Years Used Date Smoking Tobacco: Never Assessed Comments No Sex and Gender Information Value Date Recorded Sex Assigned at Not on file Legal Sex Female 2:58 AM MATHEMATICAL SCIENTIST Gender Identity Not on file Sexual Orientation Not on file documented as of this encounter Plan of Treatment Not on file documented as of this encounter Procedures Procedure Name Priority Date/Time Associated Diagnosis Comments XR CHEST PA AND LATERAL 2 VW Routine 10/12/2008 12:25 PM MATHEMATICAL SCIENTIST documented in this encounter Results * XR CHEST PA AND LATERAL (10/12/2008 12:25 PM MATHEMATICAL SCIENTIST) Anatomical Region Laterality Modality Chest Other 10/12/2008 12:2 5 PM MATHEMATICAL SCIENTIST Narrative 10/12/2008 12:27 PM MATHEMATICAL SCIENTIST [facility] [address] [place], [place] [address] Admit Date: 10/12/2008 LEONORA LIZ Sex: F Admit Prov: JASON GUTIERREZ Date: 1940 Primary Care Prov: MEGA QUINTANA CMRN: [id number] Room: [facility] SSN: [id number] IMAGING SERVICES Ordering Prov: N/A Accession Number: [id number] Interpretation Chest 2 views 10/12/2008. History: Shortness of breath. Findings: Comparison study is dated 12/08/2007. Tiny nodules in the right lung are again noted, unchanged. No acute infiltrate, pneumothorax or pleural effusion is seen. The cardiac silhouette is borderline enlarged Impression: No acute abnormality and no interval change. . Dictated by: CLAUDIA MCGEE 10/12/2008 12:21 Electronically signed by: CLAUDIA MCGEE 10/12/2008 12:22 Procedure Note Claudia Mcgee - 10/12/2008 [facility] [address] [place], [place] [address] Admit Date: 10/12/2008 LEONORA LIZ Sex: F Admit Prov: JASON GUTIERREZ Date:1940 Primary Care Prov: MEGA QUINTANA Pia CMRN: [id number] Room: [facility] SSN: [id number] IMAGING SERVICES Ordering Prov: N/A Interpretation Chest 2 views 10/12/2008. History: Shortness of breath. Findings: Comparison study is dated 12/08/2007. Tiny nodules in theright lung are again noted, unchanged. No acute infiltrate, pneumothoraxor pleural effusion is seen. The cardiac silhouette is borderlineenlarged Impression: No acute abnormality and no interval change. . Dictated by: CLAUDIA MCGEE 10/12/2008 12:21 Electronically signed by: CLAUDIA MCGEE 10/12/2008 12:22 us Jason Gutierrez MD DIAGNOSTIC IMAGING ORDERAB LES Final Result documented in this encounter Visit Diagnoses Diagnosis Shortness of breath documented in this encounter Care Teams Radioactive Waste Disposal Dispatcher Relationship Specialty Start Date End Date Not Found, Stl NO ADDRESS ON FILE PCP - General 05/09/15 documented as of this encounter
--- OUTSIDE RECORDS SUMMARY | 2025-04-02 12:30 | XMS_ITS | Encounter Summary ---
Author Organization [facility] Address [address] [place] [address] Care Team Providers Care Hatchery Helper Name Role Phone Not Found, Stl Primary Care Provider Unavailabl e Encounter Details Date Type Department Care Team (Late st Contact Info) Description 08/26/2007 Outpatient Historical [facility] Jason Andino MD [address] [place] [address] Abdominal Pain, Generalized; Irritable Bowel Syndrome Social History Tobacco Use Types Packs/Day Years Used Date Smoking Tobacco: Never Assessed Comments Unknown Sex and Gender Information Value Date Recorded Sex Assigned at Not on file Legal Sex Female 2:58 AM BELT REPAIRER Gender Identity Not on file Sexual Orientation Not on file documented as of this encounter Plan of Treatment Not on file documented as of this encounter Procedures Procedure Name Priority Date/Time Associated Diagnosis Comments POC CREATININE Routine 08/26/2007 11:31 AM BELT REPAIRER documented in this encounter Results * POC CREATININE (08/26/2007 11:31 AM BELT REPAIRER) CREATININE POC 0.9 0.6 - 1.3 mg/dL INTERFACE SYSTEM 08/26/2007 11:3 1 AM BELT REPAIRER us Jason Andino MD POINT OF CARE TESTING E dited INTERFACE SYSTEM Refer to clinic/hospital department documented in this encounter Visit Diagnoses Diagnosis Abdominal pain, generalized Irritable bowel syndrome documented in this encounter Care Teams Hatchery Helper Relationship Specialty Start Date End Date Not Found, Stl NO ADDRESS ON FILE PCP - General 05/09/15 documented as of this encounter
--- OUTSIDE RECORDS SUMMARY | 2025-04-02 12:30 | XMS_ITS | Encounter Summary ---
Author Organization [facility] Address [address] [place] [address] Care Team Providers Care Excelsior Cutter Name Role Phone Not Found, Stl Primary Care Provider Unavailabl e Encounter Details Date Type Department Care Team (Latest Contact Info) Description 06/21/2006 Outpatient Historical HIS [facility] GISELL Corona, MD [place] [address] [place] [address] Nonspecific Abnormal Results of Liver Function Study (Primary Dx) Social History Tobacco Use Types Packs/Day Years Used Date Smoking Tobacco: Never Assessed Comments Unknown Sex and Gender Information Value Date Recorded Sex Assigned at Not on file Legal Sex Female 2:58 AM TELEPRINTER INSTALLER Gender Identity Not on file Sexual Orientation Not on file documented as of this encounter Plan of Treatment Not on file documented as of this encounter Procedures Procedure Name Priority Date/Time Associated Diagnosis Comments CBC WITH DIFFERENTIAL Routine 06/21/2006 11:36 AM CDT CBC WITH DIFFERENTIAL Routine 06/21/2006 11:36 AM CDT documented in this encounter Results * CBC WITH DIFFERENTIAL (06/21/2006 11:36 AM CDT) NEUTROPHILS 60 45 - 70 % INTERFAC E SYSTEM LYMPHOCYTES 28 16 - 45 % INTERFAC E SYSTEM MONOCYTES 8 3 - 13 % INTERFACE SYSTEM EOSINOPHILS 4 0 - 7 % INTERFAC E SYSTEM BASOPHILS 0 0 - 2 % INTERFACE SYSTEM NEUTROPHIL ABSOLUTE 3.55 1.90 - 7.00 K/uL INTERFACE SYSTEM LYMPHOCYTE ABSOLUTE 1.63 0.70 - 4.50 K/uL INTERFACE SYSTEM MONOCYTE ABSOLUTE 0.46 0.10 - 1.30 K/uL INTERFACE SYSTEM EOSINOPHIL ABSOLUTE 0.23 0.00 - 0.70 K/uL INTERFACE SYSTEM BASOPHILS ABSOLUTE 0.02 0.00 - 0.20 K/uL INTERFACE SYSTEM 06/21/2006 11:3 6 AM CDT Bryn Corona MD HEMATOLOGY ORDERABLES Final Resu lt INTERFACE SYSTEM Refer to clinic/hospital department * CBC WITH DIFFERENTIAL (06/21/2006 11:36 AM CDT) WBC 5.9 4.0 - 9.8 K/uL INTERFACE SYSTEM RBC 4.10 3.90 - 4.90 M/uL INTERFACE SYSTEM HEMOGLOBIN 12.2 11.8 - 14.8 g/dL INTERFACE SYSTEM HEMATOCRIT 36.8 35.5 - 44.0 % INTERFACE SYSTEM MCV 89.8 82.0 - 99.0 fL INTERFACE SYSTEM MCH 29.8 27.2 - 32.6 pg INTERFACE SYSTEM MCHC 33.2 31.5 - 35.5 % INTERFACE SYSTEM RDW 12.9 11.5 - 14.5 % INTERFACE SYSTEM RDW-STDEV 41.9 37.1 - 48.7 fL INTERFACE SYSTEM PLATELETS 178 140 - 350 K/uL INTERFACE SYSTEM MPV 10.0 9.3 - 12.4 fL INTERFACE SYSTEM 06/21/2006 11:3 6 AM CDT Bryn Corona MD HEMATOLOGY ORDERABLES Final Resu lt Performing Organization Address City/[facility] Co de Phone Number INTERFACE SYSTEM Refer to clinic/hospital department documented in this encounter Visit Diagnoses Diagnosis Nonspecific abnormal results of liver function study- Primary documented in this encounter Care Teams Excelsior Cutter Relationship Specialty Start Date End Date Not Found, Stl NO ADDRESS ON FILE PCP - General 05/09/15 documented as of this encounter
--- OUTSIDE RECORDS SUMMARY | 2025-04-02 12:30 | XMS_ITS | Encounter Summary ---
Author Organization [facility] Address [address] [place] [address] Care Team Providers Care Roving Tester Laboratory Name Role Phone Not Found, Stl Primary Care Provider Unavailabl e Encounter Details Date Type Department Care Team (Latest Contact Info) Description 08/28/2005 Outpatient Historical HIS [facility] GISELL Corona, MD [place] [address] [place] [address] ACUTE URI NOS (Primary Dx) Social History Tobacco Use Types Packs/Day Years Used Date Smoking Tobacco: Never Assessed Comments Unknown Sex and Gender Information Value Date Recorded Sex Assigned at Not on file Legal Sex Female 2:58 AM DOCUMENT PREPARATION SPECIALIST Gender Identity Not on file Sexual Orientation Not on file documented as of this encounter Plan of Treatment Not on file documented as of this encounter Procedures Procedure Name Priority Date/Time Associated Diagnosis Comments CBC WITH DIFFERENTIAL Routine 08/28/2005 10:33 AM DOCUMENT PREPARATION SPECIALIST CBC WITH DIFFERENTIAL Routine 08/28/2005 10:33 AM DOCUMENT PREPARATION SPECIALIST TSH Routine 08/28/2005 10:33 AM DOCUMENT PREPARATION SPECIALIST T4 FREE Routine 08/28/2005 10:33 AM DOCUMENT PREPARATION SPECIALIST COMPREHENSIVE METABOLIC PANEL Routine 08/28/2005 10:33 AM DOCUMENT PREPARATION SPECIALIST URINALYSIS W/REFLEX MICROSCOPIC Routine 08/28/2005 10:24 AM DOCUMENT PREPARATION SPECIALIST documented in this encounter Results * CBC WITH DIFFERENTIAL (08/28/2005 10:33 AM DOCUMENT PREPARATION SPECIALIST) NEUTROPHILS 58 45 - 70 % INTERFAC E SYSTEM LYMPHOCYTES 30 16 - 45 % INTERFAC E SYSTEM MONOCYTES 8 3 - 13 % INTERFACE SYSTEM EOSINOPHILS 4 0 - 7 % INTERFAC E SYSTEM BASOPHILS 1 0 - 2 % INTERFACE SYSTEM NEUTROPHIL ABSOLUTE 3.21 1.90 - 7.00 K/uL INTERFACE SYSTEM LYMPHOCYTE ABSOLUTE 1.68 0.70 - 4.50 K/uL INTERFACE SYSTEM MONOCYTE ABSOLUTE 0.45 0.10 - 1.30 K/uL INTERFACE SYSTEM EOSINOPHIL ABSOLUTE 0.21 0.00 - 0.70 K/uL INTERFACE SYSTEM BASOPHILS ABSOLUTE 0.03 0.00 - 0.20 K/uL INTERFACE SYSTEM 08/28/2005 10:3 3 AM DOCUMENT PREPARATION SPECIALIST Bryn Corona MD HEMATOLOGY ORDERABLES Final Resu lt INTERFACE SYSTEM Refer to clinic/hospital department * CBC WITH DIFFERENTIAL (08/28/2005 10:33 AM DOCUMENT PREPARATION SPECIALIST) WBC 5.6 4.0 - 9.8 K/uL INTERFACE SYSTEM RBC 4.36 3.90 - 4.90 M/uL INTERFACE SYSTEM HEMOGLOBIN 13.6 11.8 - 14.8 g/dL INTERFACE SYSTEM HEMATOCRIT 41.4 35.5 - 44.0 % INTERFACE SYSTEM MCV 95.0 82.0 - 99.0 fL INTERFACE SYSTEM MCH 31.2 27.2 - 32.6 pg INTERFACE SYSTEM MCHC 32.9 31.5 - 35.5 % INTERFACE SYSTEM RDW 12.6 11.5 - 14.5 % INTERFACE SYSTEM RDW-STDEV 44.0 37.1 - 48.7 fL INTERFACE SYSTEM PLATELETS 211 140 - 350 K/uL INTERFACE SYSTEM MPV 9.8 9.3 - 12.4 fL INTERFACE SYSTEM 08/28/2005 10:3 3 AM DOCUMENT PREPARATION SPECIALIST us Bryn Corona MD HEMATOLOGY ORDERABLES Final Resu lt INTERFACE SYSTEM Refer to clinic/hospital department * TSH (08/28/2005 10:33 AM DOCUMENT PREPARATION SPECIALIST) TSH 1.80 0.27 - 4.20 uU/mL INTERFACE SYSTEM 08/28/2005 10:3 3 AM DOCUMENT PREPARATION SPECIALIST us Bryn Corona MD CHEMISTRY ORDERABLES Final Resul t Performing Organization Address City/[facility] Phone Number INTERFACE SYSTEM Refer to clinic/hospital department * T4 FREE (08/28/2005 10:33 AM DOCUMENT PREPARATION SPECIALIST) T4 FREE 1.0 0.9 - 1.7 ng/dL INTERFACE SYSTEM 08/28/2005 10:3 3 AM DOCUMENT PREPARATION SPECIALIST us Bryn Corona MD CHEMISTRY ORDERABLES Final Resul t Performing Organization Address [facility] Phone Number INTERFACE SYSTEM Refer to clinic/hospital department * (ABNORMAL) COMPREHENSIVE METABOLIC PANEL (08/28/2005 10:33 AM DOCUMENT PREPARATION SPECIALIST) GLUCOSE 84 65 - 109 mg/dL INTERFACE SYSTEM CREATININE 0.9 0.4 - 1.2 mg/dL INTERFACE SYSTEM CALCIUM 9.1 8.6 - 10.2 mg/dL INTERFACE SYSTEM AST 34(H) 12 - 32 U/L INTERFACE SYSTEM ALKALINE PHOSPHATASE 79 35 - 104 U/L INTERFACE SYSTEM BILIRUBIN TOTAL 0.3 0.2 - 1.0 mg/dL INTERFACE SYSTEM ALBUMIN 4.2 3.4 - 4.8 g/dL INTERFACE SYSTEM TOTAL PROTEIN 7.3 6.3 - 8.6 g/dL INTERFACE SYSTEM ALT 33(H) 0 - 31 U/L INTERFACE SYSTEM BUN 21(H) 6 - 20 mg/dL INTERFACE SYSTEM SODIUM 139 135 - 145 mmol/L INTERFACE SYSTEM POTASSIUM 3.7 3.5 - 4.9 mmol/L INTERFACE SYSTEM CHLORIDE 105 96 - 108 mmol/L INTERFACE SYSTEM CO2 23 22 - 30 mmol/L INTERFACE SYSTEM 08/28/2005 10:3 3 AM DOCUMENT PREPARATION SPECIALIST us Bryn Corona MD CHEMISTRY ORDERABLES Final Resul t Performing Organization Address City/[facility] Co de Phone Number INTERFACE SYSTEM Refer to clinic/hospital department * URINALYSIS (08/28/2005 10:24 AM DOCUMENT PREPARATION SPECIALIST) COLOR UA Yellow INTERFACE SYSTEM CLARITY UA Clear Clear INTERFACE SYSTEM SPECIFIC GRAVITY UA 1.015 1.001 - 1.035 INTERFACE SYSTEM PH UA 5.0 5.0 - 8.0 INTERFACE SYSTEM LEUKOCYTE ESTERASE UA Negative Negative INTERFACE SYSTEM NITRITE UA Negative Negative INTERFACE SYSTEM PROTEIN UA Negative Negative INTERFACE SYSTEM GLUCOSE UA Negative Negative INTERFACE SYSTEM KETONES UA Negative Negative INTERFACE SYSTEM UROBILINOGEN UA <1 <1 mg/dL INTE RFACE SYSTEM BILIRUBIN UA Negative Negative INTERFA CE SYSTEM BLOOD UA Negative Negative INTERFACE SYSTEM 08/28/2005 10:2 4 AM DOCUMENT PREPARATION SPECIALIST Bryn Corona MD URINE ORDERABLES Final Result INTERFACE SYSTEM Refer to clinic/hospital department documented in this encounter Visit Diagnoses Diagnosis Acute upper respiratory infections of unspecified site- Primary documented in this encounter Care Teams Roving Tester Laboratory Relationship Specialty Start Date End Date Not Found, Stl NO ADDRESS ON FILE PCP - General 05/09/15 documented as of this encounter
--- OUTSIDE RECORDS SUMMARY | 2025-04-02 12:30 | XMS_ITS | Encounter Summary ---
Author Organization [facility] Address [address] [place] [address] Care Team Providers Care Supervisor Wood Room Name Role Phone Not Found, Stl Primary Care Provider Unavailabl e Encounter Details Date Type Department Care Team (Latest Contact Info) Description 12/09/2006 Outpatient Historical HIS [facility] GISELL Corona, MD [place] [address] [place] [address] Unspecified Sinusitis (Chronic) (Primary Dx) Social History Tobacco Use Types Packs/Day Years Used Date Smoking Tobacco: Never Assessed Comments Unknown Sex and Gender Information Value Date Recorded Sex Assigned at Not on file Legal Sex Female 2:58 AM DEVELOPMENT ARCHITECT Gender Identity Not on file Sexual Orientation Not on file documented as of this encounter Plan of Treatment Not on file documented as of this encounter Visit Diagnoses Diagnosis Unspecified sinusitis (chronic)- Primary documented in this encounter Care Teams Supervisor Wood Room Relationship Specialty Start Date End Date Not Found, Stl NO ADDRESS ON FILE PCP - General 05/09/15 documented as of this encounter
--- OUTSIDE RECORDS SUMMARY | 2025-04-02 12:30 | XMS_ITS | Encounter Summary ---
Author Organization [facility] Address [address] [place] [address] Care Team Providers Care Cosmetic Account Coordinator Name Role Phone Not Found, Stl Primary Care Provider Unavailabl e Encounter Details Date Type Department Care Team (Latest Contact Info) Description 02/18/2007 Outpatient Historical HIS [facility] GISELL Corona, MD [address] [facility] [address] [place] [phone] Other Screening Mammogram (Primary Dx) Social History Tobacco Use Types Packs/Day Years Used Date Smoking Tobacco: Never Assessed Comments Unknown Sex and Gender Information Value Date Recorded Sex Assigned at Not on file Legal Sex Female 2:58 AM DATA GOVERNANCE CONSULTANT Gender Identity Not on file Sexual Orientation Not on file documented as of this encounter Plan of Treatment Not on file documented as of this encounter Visit Diagnoses Diagnosis Other screening mammogram- Primary documented in this encounter Care Teams Cosmetic Account Coordinator Relationship Specialty Start Date End Date Not Found, Stl NO ADDRESS ON FILE PCP - General 05/09/15 documented as of this encounter
--- OUTSIDE RECORDS SUMMARY | 2025-04-02 12:30 | XMS_ITS | Encounter Summary ---
Author Organization [facility] Address [address] [place] [address] Care Team Providers Care Chief Optometry Service Name Role Phone Not Found, Stl Primary Care Provider Unavailabl e Encounter Details Date Type Department Care Team (Latest Contact Info) Description 06/22/2003 Outpatient Historical HIS [facility] Sammy Conway MD [address] [place] [address] SHORTNESS OF BREATH (Primary Dx) Social History Tobacco Use Types Packs/Day Years Used Date Smoking Tobacco: Never Assessed Comments Unknown Sex and Gender Information Value Date Recorded Sex Assigned at Not on file Legal Sex Female 2:58 AM SAMPLE STITCHER Gender Identity Not on file Sexual Orientation Not on file documented as of this encounter Plan of Treatment Not on file documented as of this encounter Visit Diagnoses Diagnosis Shortness of breath- Primary documented in this encounter Care Teams Chief Optometry Service Relationship Specialty Start Date End Date Not Found, Stl NO ADDRESS ON FILE PCP - General 05/09/15 documented as of this encounter
--- OUTSIDE RECORDS SUMMARY | 2025-04-02 12:30 | XMS_ITS | Encounter Summary ---
Author Organization [facility] Address [address] [place] [address] Care Team Providers Care Military Exchange Wireless Manager Name Role Phone Not Found, Stl Primary Care Provider Unavailabl e Encounter Details Date Type Department Care Team (Latest Contact Info) Description 12/17/2005 Outpatient Historical HIS [facility] GISELL Corona, MD [address] [facility] [address] [place] [phone] Other Screening Mammogram (Primary Dx) Social History Tobacco Use Types Packs/Day Years Used Date Smoking Tobacco: Never Assessed Comments Unknown Sex and Gender Information Value Date Recorded Sex Assigned at Not on file Legal Sex Female 2:58 AM FIELD CAPTAIN Gender Identity Not on file Sexual Orientation Not on file documented as of this encounter Plan of Treatment Not on file documented as of this encounter Visit Diagnoses Diagnosis Other screening mammogram- Primary documented in this encounter Care Teams Military Exchange Wireless Manager Relationship Specialty Start Date End Date Not Found, Stl NO ADDRESS ON FILE PCP - General 05/09/15 documented as of this encounter
--- OUTSIDE RECORDS SUMMARY | 2025-04-02 12:30 | XMS_ITS | Encounter Summary ---
Author Organization [facility] Address [address] [place] [address] Care Team Providers Care Business Services Analyst Name Role Phone Not Found, Stl Primary Care Provider Unavailabl e Encounter Details Date Type Department Care Team (Latest Contact Info) Description 10/17/2004 Outpatient Historical HIS [facility] GISELL Corona, MD [facility] [facility] [address] [place] [phone] SCREENING MAMM-MAILG NEOPL-OTHER (Primary Dx) Social History Tobacco Use Types Packs/Day Years Used Date Smoking Tobacco: Never Assessed Comments Unknown Sex and Gender Information Value Date Recorded Sex Assigned at Not on file Legal Sex Female 2:58 AM DOCTOR OF DENTAL SURGERY Gender Identity Not on file Sexual Orientation Not on file documented as of this encounter Plan of Treatment Not on file documented as of this encounter Visit Diagnoses Diagnosis Other screening mammogram- Primary documented in this encounter Care Teams Business Services Analyst Relationship Specialty Start Date End Date Not Found, Stl NO ADDRESS ON FILE PCP - General 05/09/15 documented as of this encounter
--- OUTSIDE RECORDS SUMMARY | 2025-04-02 12:30 | XMS_ITS | Encounter Summary ---
Author Organization [facility] Address [address] [place] [address] Care Team Providers Care Sous Chef Name Role Phone Not Found, Stl Primary Care Provider Unavailabl e Encounter Details Date Type Department Care Team (Latest Contact Info) Description 06/28/2007 Outpatient Historical HIS [facility] GISELL Corona, MD Bryn [address] [place] [phone] Other and Unspecified Hyperlipidemia (Primary Dx) Social History Tobacco Use Types Packs/Day Years Used Date Smoking Tobacco: Never Assessed Comments Unknown Sex and Gender Information Value Date Recorded Sex Assigned at Not on file Legal Sex Female 2:58 AM IMPORT CUSTOMER SERVICE MANAGER Gender Identity Not on file Sexual Orientation Not on file documented as of this encounter Plan of Treatment Not on file documented as of this encounter Procedures Procedure Name Priority Date/Time Associated Diagnosis Comments CBC WITHOUT DIFFERENTIAL Routine 06/28/2007 11:02 AM CDT TSH Routine 06/28/2007 11:02 AM CDT LIPID PANEL Routine 06/28/2007 11:02 AM CDT COMPREHENSIVE METABOLIC PANEL Routine 06/28/2007 11:02 AM CDT documented in this encounter Results * TSH (06/28/2007 11:02 AM CDT) TSH 2.69 0.27 - 4.20 uU/mL INTERFACE SYSTEM 06/28/2007 11:0 2 AM CDT Bryn Corona MD CHEMISTRY ORDERABLES Edited Performing Organization Address City/[facility] de Phone Number INTERFACE SYSTEM Refer to clinic/hospital department * CBC WITHOUT DIFFERENTIAL (06/28/2007 11:02 AM CDT) WBC 5.8 4.0 - 9.8 K/uL INTERFACE SYSTEM RBC 4.31 3.90 - 4.90 M/uL INTERFACE SYSTEM HEMOGLOBIN 13.1 11.8 - 14.8 g/dL INTERFACE SYSTEM HEMATOCRIT 39.5 35.5 - 44.0 % INTERFACE SYSTEM MCV 91.6 82.0 - 99.0 fL INTERFACE SYSTEM MCH 30.4 27.2 - 32.6 pg INTERFACE SYSTEM MCHC 33.2 31.5 - 35.5 % INTERFACE SYSTEM RDW 13.7 11.5 - 14.5 % INTERFACE SYSTEM RDW-STDEV 45.4 37.1 - 48.7 fL INTERFACE SYSTEM PLATELETS 213 140 - 350 K/uL INTERFACE SYSTEM MPV 10.5 9.3 - 12.4 fL INTERFACE SYSTEM 06/28/2007 11:0 2 AM CDT Bryn Corona MD HEMATOLOGY ORDERABLES Edited Performing Organization Address [facility] Phone Number INTERFACE SYSTEM Refer to clinic/hospital department * (ABNORMAL) LIPID PANEL (06/28/2007 11:02 AM CDT) CHOLESTEROL 209(H) 100 - 199 mg/dL INTERFACE SYSTEM TRIGLYCERIDE 141 10 - 149 mg/dL INTERFACE SYSTEM HDL 79(H) 40 - 59 mg/dL INTERFACE SYSTEM CHOL/HDL RATIO 2.6 2.0 - 5.0 INTER FACE SYSTEM LDL CALCULATED 102(H) <=99 mg/dL INTERFACE SYSTEM LIPID PANEL COMMENT See Below INTERFACE SYSTEM Comment: The adult ATP and pediatric NCEP classifications for lipids are available on the [facility] Intranet at: [email or web address] [email or web address] hospitalStemedica Cell [email or web address] Select: Lab Policies and Procedures,Current Select: Lipid Panel Interpretation 06/28/2007 11:0 2 AM CDT Bryn Corona MD CHEMISTRY ORDERABLES Edited INTERFACE SYSTEM Refer to clinic/hospital department * COMPREHENSIVE METABOLIC PANEL (06/28/2007 11:02 AM CDT) GLUCOSE 99 65 - 99 mg/dL INTERFACE SYSTEM CREATININE 0.88 0.51 - 0.95 mg/dL INTERFACE SYSTEM CALCIUM 8.8 8.4 - 10.2 mg/dL INTERFACE SYSTEM ALKALINE PHOSPHATASE 82 35 - 104 U/L INTERFACE SYSTEM AST 16 12 - 32 U/L INTERFACE SYSTEM ALT 9 0 - 31 U/L INTERFACE SYSTEM TOTAL PROTEIN 7.5 6.3 - 8.6 g/dL INTERFACE SYSTEM ALBUMIN 4.4 3.4 - 4.8 g/dL INTERFACE SYSTEM BILIRUBIN TOTAL 0.2 0.2 - 1.0 mg/dL INTERFACE SYSTEM BUN 17 6 - 20 mg/dL INTERFACE SYSTEM SODIUM 138 135 - 145 mmol/L INTERFACE SYSTEM POTASSIUM 4.2 3.5 - 4.9 mmol/L INTERFACE SYSTEM CHLORIDE 103 96 - 108 mmol/L INTERFACE SYSTEM CO2 27 22 - 30 mmol/L INTERFACE SYSTEM GFR, >60 >=60 mL/min/1.7 sq meter INTERFACE SYSTEM GFR >60 >=60 mL/min/1.7 sq meter INTERFACE SYSTEM Comment: Estimated GFR rate interpretative information for both Americans and non- Americans is available on the [facility] Intranet at: [email or web address] Select: Lab Policies and Procedures Select: Reference Ranges - GFR 06/28/2007 11:0 2 AM CDT Bryn Corona MD CHEMISTRY ORDERABLES Edited INTERFACE SYSTEM Refer to clinic/hospital department documented in this encounter Visit Diagnoses Diagnosis Other and unspecified hyperlipidemia- Primary documented in this encounter Care Teams Sous Chef Relationship Specialty Start Date End Date Not Found, Stl NO ADDRESS ON FILE PCP - General 05/09/15 documented as of this encounter
--- OUTSIDE RECORDS SUMMARY | 2025-04-02 12:30 | XMS_ITS | Encounter Summary ---
Author Organization [facility] Address [address] [place] [address] Care Team Providers Care Pulp Drier Name Role Phone Not Found, Stl Primary Care Provider Unavailabl e Encounter Details Date Type Department Care Team (Latest Contact Info) Description 10/14/2001 Outpatient Historical HIS [facility] Cj, [facility] [address] [facility] [address] [place] [address] CHEST PAIN NEC (Primary Dx) Social History Tobacco Use Types Packs/Day Years Used Date Smoking Tobacco: Never Assessed Comments Unknown Sex and Gender Information Value Date Recorded Sex Assigned at Not on file Legal Sex Female 2:58 AM WATER RESOURCE AGENT Gender Identity Not on file Sexual Orientation Not on file documented as of this encounter Plan of Treatment Not on file documented as of this encounter Visit Diagnoses Diagnosis Other chest pain- Primary documented in this encounter Care Teams Pulp Drier Relationship Specialty Start Date End Date Not Found, Stl NO ADDRESS ON FILE PCP - General 05/09/15 documented as of this encounter
--- OUTSIDE RECORDS SUMMARY | 2025-04-02 12:30 | XMS_ITS | Encounter Summary ---
Author Organization [facility] Address [address] [place] [address] Care Team Providers Care Guest Service Agent Name Role Phone Not Found, Stl Primary Care Provider Unavailabl e Encounter Details Date Type Department Care Team (Latest Contact Info) Description 09/26/2001 Outpatient Historical HIS [facility] Miri Teague DO NO ADDRESS ON FILE PAINFUL RESPIRATION (Primary Dx) Social History Tobacco Use Types Packs/Day Years Used Date Smoking Tobacco: Never Assessed Comments Unknown Sex and Gender Information Value Date Recorded Sex Assigned at Not on file Legal Sex Female 2:58 AM VENEER JOINTER OPERATOR Gender Identity Not on file Sexual Orientation Not on file documented as of this encounter Plan of Treatment Not on file documented as of this encounter Visit Diagnoses Diagnosis Painful respiration- Primary documented in this encounter Care Teams Guest Service Agent Relationship Specialty Start Date End Date Not Found, Stl NO ADDRESS ON FILE PCP - General 05/09/15 documented as of this encounter
--- OUTSIDE RECORDS SUMMARY | 2025-04-02 12:30 | XMS_ITS | Encounter Summary ---
Author Organization [facility] Address [address] [place] [address] Care Team Providers Care Bessemer Converter Operator Name Role Phone Not Found, Stl Primary Care Provider Unavailabl e Encounter Details Date Type Department Care Team (Late st Contact Info) Description 08/28/2005 Outpatient Historical HIS [facility] GISELL Corona, MD Bryn [address] [facility] [address] [place] [address] Social History Tobacco Use Types Packs/Day Years Used Date Smoking Tobacco: Never Assessed Comments Unknown Sex and Gender Information Value Date Recorded Sex Assigned at Not on file Legal Sex Female 2:58 AM DEPUTY SHERIFF GENERALIST Gender Identity Not on file Sexual Orientation Not on file documented as of this encounter Plan of Treatment Not on file documented as of this encounter Visit Diagnoses Not on filedocumented in this encounter Care Teams Bessemer Converter Operator Relationship Specialty Start Date End Date Not Found, Stl NO ADDRESS ON FILE PCP - General 05/09/15 documented as of this encounter
--- OUTSIDE RECORDS SUMMARY | 2025-04-02 12:30 | XMS_ITS | Encounter Summary ---
Author Organization [facility] Address [address] [place] [address] Care Team Providers Care Furniture Sales Consultant Name Role Phone Not Found, Stl Primary Care Provider Unavailabl e Encounter Details Date Type Department Care Team (Latest Contact Info) Description 02/09/2003 Outpatient Historical HIS [facility] GISELL Corona, MD [facility] [facility] [address] [place] [address] SCREENING MAMM-MAILG NEOPL-OTHER (Primary Dx) Social History Tobacco Use Types Packs/Day Years Used Date Smoking Tobacco: Never Assessed Comments Unknown Sex and Gender Information Value Date Recorded Sex Assigned at Not on file Legal Sex Female 2:58 AM MAINFRAME SYSTEMS PROGRAMMER Gender Identity Not on file Sexual Orientation Not on file documented as of this encounter Plan of Treatment Not on file documented as of this encounter Visit Diagnoses Diagnosis Other screening mammogram- Primary documented in this encounter Care Teams Furniture Sales Consultant Relationship Specialty Start Date End Date Not Found, Stl NO ADDRESS ON FILE PCP - General 05/09/15 documented as of this encounter
--- OUTSIDE RECORDS SUMMARY | 2025-04-02 12:30 | XMS_ITS | Encounter Summary ---
Author Organization [facility] Address [address] [place] [address] Care Team Providers Care Telecommunications Line Mechanic Name Role Phone Not Found, Stl Primary Care Provider Unavailabl e Encounter Details Date Type Department Care Team (Latest Contact Info) Description 01/02/2004 Inpatient Historical HIS PATIENT IN A BED Antonio Dumont MD [address] [facility] [address] [place] [address] RECURR DEPR PSYCHOS-UNSP (Primary Dx) Social History Tobacco Use Types Packs/Day Years Used Date Smoking Tobacco: Never Assessed Comments Unknown Sex and Gender Information Value Date Recorded Sex Assigned at Not on file Legal Sex Female 2:58 AM RESEARCH DEVELOPMENT MANAGER Gender Identity Not on file Sexual Orientation Not on file documented as of this encounter Plan of Treatment Not on file documented as of this encounter Visit Diagnoses Diagnosis Major depressive disorder, recurrent episode, unspecified- Primary documented in this encounter Care Teams Telecommunications Line Mechanic Relationship Specialty Start Date End Date Not Found, Stl NO ADDRESS ON FILE PCP - General 05/09/15 documented as of this encounter
--- OUTSIDE RECORDS SUMMARY | 2025-04-02 12:30 | XMS_ITS | Encounter Summary ---
Author Organization [facility] Address [address] [place] [address] Care Team Providers Care Morning Show Newscast Producer Name Role Phone Not Found, Stl Primary Care Provider Unavailabl e Encounter Details Date Type Department Care Team (Late st Contact Info) Description 10/10/2001 Outpatient Historical HIS [facility]OS[facility] Coordhu, Mihaela MENSTRUAL DISORDER NEC (Primary Dx) Social History Tobacco Use Types Packs/Day Years Used Date Smoking Tobacco: Never Assessed Comments Unknown Sex and Gender Information Value Date Recorded Sex Assigned at Not on file Legal Sex Female 2:58 AM CONSOLE MANAGER Gender Identity Not on file Sexual Orientation Not on file documented as of this encounter Plan of Treatment Not on file documented as of this encounter Visit Diagnoses Diagnosis Other disorder of menstruation and other abnormal bleeding from female genital tract- Primary documented in this encounter Care Teams Morning Show Newscast Producer Relationship Specialty Start Date End Date Not Found, Stl NO ADDRESS ON FILE PCP - General 05/09/15 documented as of this encounter
--- OUTSIDE RECORDS SUMMARY | 2025-04-02 12:30 | XMS_ITS | Encounter Summary ---
Author Organization [facility] Address [address] [place] [address] Care Team Providers Care Buckle Frame Shaper Name Role Phone Not Found, Stl Primary Care Provider Unavailabl e Encounter Details Date Type Department Care Team (Late st Contact Info) Description 09/16/2007 Outpatient Historical HIS [facility] Jason Andino MD [address] [place] [id number] Nausea Alone Social History Tobacco Use Types Packs/Day Years Used Date Smoking Tobacco: Never Assessed Comments Unknown Sex and Gender Information Value Date Recorded Sex Assigned at Not on file Legal Sex Female 2:58 AM AIRFREIGHT OPERATIONS AGENT Gender Identity Not on file Sexual Orientation Not on file documented as of this encounter Plan of Treatment Not on file documented as of this encounter Visit Diagnoses Diagnosis Nausea alone documented in this encounter Care Teams Buckle Frame Shaper Relationship Specialty Start Date End Date Not Found, Stl NO ADDRESS ON FILE PCP - General 05/09/15 documented as of this encounter
--- OUTSIDE RECORDS SUMMARY | 2025-04-02 12:30 | XMS_ITS | Encounter Summary ---
Author Organization [facility] Address 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
--- OUTSIDE RECORDS SUMMARY | 2025-04-02 12:30 | XMS_ITS | Encounter Summary ---
Author Organization [facility] Address [address] [place] [address] Care Team Providers Care Regulatory Associate Name Role Phone Not Found, Stl Primary Care Provider Unavailabl e Encounter Details Date Type Department Care Team (Latest Contact Info) Description 07/09/2004 Outpatient Historical HIS [facility] GISELL Corona, MD Bryn [address] 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
== END 2025-04-02 12:24 | disposition home or self-care (01) ==
PROVIDERS: PCP Internal Medicine; Visit Provider Internal Medicine
DX: M79.605 Pain in left leg (principal)
CPT/HCPCS: 93971

== ENCOUNTER 2025-07-03 11:44 | Outpatient (CLI) | payer MEDICARE, MEDICAID, SELFPAY ==
--- NOTE | ~2025-07-03 | US_ITS ---
Examination: Ultrasound of the retroperitoneum including kidneys and bladder. Clinical History: N18.9 - Chronic kidney disease, unspecified . Comparison: CT abdomen and pelvis 10/18/2022 Findings: Right kidney: 8 cm. Cortical thinning. Normal echogenicity. No collecting system dilatation. No shadowing calculi. Left kidney: 9 cm. Cortical thinning. Normal echogenicity. No collecting system dilatation. No shadowing calculi. Urinary bladder: No wall thickening or focal abnormality. Prevoid volume- 454 mL. Did not void. Bilateral ureteral jets seen. IMPRESSION: 1. No acute abnormality. Reviewed, dictated and finalized at location R. IMPRESSION: 1. No acute abnormality.
[2025-07-03 12:21] LABS: Hematocrit 39.3 % (37.0-47.0); Hemoglobin 11.9 g/dL (12.0-15.0); Mean Corpuscular HGB Conc 30.3 g/dl (32-36); Mean Corpuscular Hemoglobin 31.1 pg (26-34); Mean Corpuscular Volume 102.6 fl (80-100); Platelet Count Result 183 k/mm3 (150-375); Red Blood Count 3.83 M/mm3 (4.2-5.4); White Blood Count 5.0 K/mm3 (4.5-10.0)
[2025-07-03 12:30] LABS: Albumin Level 4.3 g/dL (3.5-5.1); Anion Gap 9 mmol/L (4-12); Blood Urea Nitrogen 32 mg/dL (7-17); Calcium 9.0 mg/dL (8.4-10.2); Carbon Dioxide 20 mmol/L (22-30); Chloride 104 mmol/L (98-107); Estimated Glomerular Filt Rate 50; Glucose 89 mg/dL (65-110); Potassium 4.1 mmol/L (3.4-5.0); Sodium 133 mmol/L (137-145)
[2025-07-03 12:40] LABS: Parathyroid Intact 60.9 pg/mL (14.5-75.2)
[2025-07-03 13:09] LABS: Total Protein Urine Random 14 mg/dL
[2025-07-03 13:23] LABS: Ur Ttl Prot Creatinine Ratio 1.13 mg/mg (0-0.20)
== END 2025-07-03 11:45 | disposition home or self-care (01) ==
PROVIDERS: PCP Internal Medicine; Visit Provider Internal Medicine Nephrology
DX: N18.9 Chronic kidney disease, unspecified (principal)
CPT/HCPCS: 36415; 76770; 80069; 82570; 83970; 84156; 85027